=== PATIENT | male | born 1935 | race Caucasian/White ===

== ENCOUNTER 2019-07-24 17:14 | Inpatient (IN) | payer MEDICARE, OTHER ==
[2019-07-24] MEDS ORDERED: IPRATROPIUM-ALBUTEROL 3 ML NEB INHALATION STA (17:59)
--- NOTE | 2019-07-24 17:59 | ED ---
SOB HPI - General Chief Complaint: Shortness of Breath Stated Complaint: SOB Time Seen by Provider: 07/24/19 17:18 Source: patient, RN notes reviewed Mode of arrival: EMS Limitations: no limitations, altered mental status (difficulty breathing) - History of Present Illness Initial Comments: This is a 84-year-old male DF for evaluation of shortness of breath and weakness fell out of chair today hitting his head on blood thinner no significant loss of consciousness was mildly unresponsive with a low pulse ox per caregiver. EMS was called patient's brought in by EMS shortness of breath placed on BiPAP feeling better patient feels that his breathing is much improved currently no chest pain no headache no shortness of breath currently patient states he has been feeling weak for a few days of increasing shortness of breath today recent fevers nausea vomiting or diarrhea MD Complaint: shortness of breath -: days(s) Radiation: other (Patient also had fall today) Severity: moderate Severity scale (1-10): 4 Quality: dull (AB mild headache) Consistency: constant Improves With: oxygen, rest Worsens With: exertion Known History Of: congestive heart failure Context: recent URI, other (Patient had recent fall secondary to weakness) Associated Symptoms: denies other symptoms - Related Data Home Medications Medication Instructions Recorded Confirmed Amiodarone [Cordarone] 200 mg PO DAILY 01/16/16 01/16/16 Ezetimibe [Zetia] 10 mg PO DAILY 01/16/16 01/16/16 Fenofibrate,Micronized 134 mg PO AC-BRKFST 01/16/16 01/16/16 [Fenofibrate] Finasteride [Proscar] 5 mg PO DAILY 01/16/16 01/16/16 Furosemide [Lasix] 40 mg PO BID 01/16/16 01/16/16 Levothyroxine Sodium [Synthroid] 125 mcg PO QAM 01/16/16 01/16/16 Losartan [Cozaar] 25 mg PO DAILY 01/16/16 01/16/16 Metoprolol Succinate (ER) [Toprol 25 mg PO DAILY 01/16/16 01/16/16 XL] Omeprazole 20 mg PO QAM 01/16/16 01/16/16 Potassium Chloride ER [K-Dur 10] 10 meq PO DAILY 01/16/16 01/16/16 Tretinoin 0.025% Gel 1 applic TOPICAL HS 01/16/16 01/16/16 Warfarin [Coumadin] 3 mg PO SUTUWETHSA 01/16/16 01/16/16 amLODIPine/ATORVASTATIN 1 tab PO DAILY 01/16/16 01/16/16 [amLODIPine/ATORVASTATIN 10-10 MG] Previous Rx's Medication Instructions Recorded Ciprofloxacin-Dexameth [Ciprodex 4 drops LEFT EAR QID ml 01/20/16 Otic Susp] Ofloxacin 0.3% Ophth Soln [Ocuflox 5 - 7 drops LEFT EAR BID #10 bottle 01/20/16 Ophth Soln] Piperacillin-Tazobactam [Zosyn] 3.375 gm IVPB Q6H #56 bag 01/20/16 HYDROcodone/APAP 5-325MG [Alna 1 each PO Q4HR PRN #30 tab 01/21/16 5-325] Allergies Allergy/AdvReac Type Severity Reaction Status Date / Time morphine Allergy Nausea & Verified 07/24/19 17:21 Vomiting Review of Systems ROS Statement: Those systems with pertinent positive or pertinent negative responses have been documented in the HPI. ROS Other: All systems not noted in ROS Statement are negative. 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 Past Anesthesia/Blood Transfusion Reactions: No Reported Reaction Type of Cardiac Device: Permanent Pacemaker, AICD Device Placement Date:: 09/28/11 Past Psychological History: No Psychological Hx Reported Smoking Status: Former smoker Past Alcohol Use History: Rare Past Drug Use History: None Reported - Past Family History Mother Family Medical History: Cancer Additional Family Medical History / Comment(s): Mother had leukemia. She at the age of 80 yrs. Father Family Medical History: Osteoarthritis (OA) Additional Family Medical History / Comment(s): Father had severe arthritis. He in his late 70's General Exam Limitations: no limitations, altered mental status General appearance: alert, in no apparent distress, anxious, in distress Head exam: Present: atraumatic, normocephalic, normal inspection Eye exam: Present: normal appearance, PERRL, EOMI. Absent: scleral icterus, conjunctival injection, periorbital swelling ENT exam: Present: normal exam, mucous membranes moist Neck exam: Present: normal inspection. Absent: tenderness, meningismus, lymphadenopathy Respiratory exam: Present: normal lung sounds bilaterally. Absent: respiratory distress, wheezes, rales, rhonchi, stridor Cardiovascular Exam: Present: regular rate, normal rhythm, normal heart sounds. Absent: systolic murmur, diastolic murmur, rubs, gallop, clicks GI/Abdominal exam: Present: soft, normal bowel sounds. Absent: distended, tenderness, guarding, rebound, rigid Extremities exam: Present: normal inspection, full ROM, normal capillary refill. Absent: tenderness, pedal edema, joint swelling, calf tenderness Back exam: Present: normal inspection Neurological exam: Present: alert, oriented X3, CN II-XII intact Psychiatric exam: Present: normal affect, normal mood Skin exam: Present: warm, dry, intact, normal color. Absent: rash Course Vital Signs 07/24/19 07/24/19 07/24/19 17:17 18:00 18:32 Temperature 100.2 F H Pulse Rate 54 L 53 L Respiratory 29 H 25 H Rate Blood Pressure 116/57 106/54 O2 Sat by Pulse 99 100 91 L Oximetry 07/24/19 07/24/19 18:44 18:50 Temperature Pulse Rate 52 L 49 L Respiratory 18 18 Rate Blood Pressure O2 Sat by Pulse Oximetry - Reevaluation(s) Reevaluation #1: 07/24/19 18:10 Medical records reviewed Reevaluation #2: 07/24/19 19:42 Patient is improving continues to improve on BiPAP Reevaluation #3: 07/24/19 19:42 Patient has adequate pain control breathing better, no chest pain - Consultations Consultation #1: Spoke with EMS were agreeable for admission Medical Decision Making - Lab Data Result diagrams: 07/24/19 17:35 07/24/19 17:35 Lab Results 07/24/19 07/24/19 07/24/19 Range/Units 17:35 17:35 17:35 WBC 9.5 (3.8-10.6) k/uL RBC 3.35 L (4.30-5.90) m/uL Hgb 11.4 L (13.0-17.5) gm/dL Hct 36.9 L (39.0-53.0) % MCV 110.1 H (80.0-100.0) fL MCH 34.0 (25.0-35.0) pg MCHC 30.8 L (31.0-37.0) g/dL RDW 13.4 (11.5-15.5) % Plt Count 199 (150-450) k/uL Neutrophils % 90 % Lymphocytes % 5 % Monocytes % 3 % Eosinophils % 0 % Basophils % 0 % Neutrophils # 8.5 H (1.3-7.7) k/uL Lymphocytes # 0.5 L (1.0-4.8) k/uL Monocytes # 0.3 (0-1.0) k/uL Eosinophils # 0.0 (0-0.7) k/uL Basophils # 0.0 (0-0.2) k/uL Macrocytosis Marked A PT (9.0-12.0) sec INR (<1.2) APTT (22.0-30.0) sec Sodium 140 (137-145) mmol/L Potassium 4.4 (3.5-5.1) mmol/L Chloride 107 (98-107) mmol/L Carbon Dioxide 15 L (22-30) mmol/L Anion Gap 18 mmol/L BUN 37 H (9-20) mg/dL Creatinine 3.23 H (0.66-1.25) mg/dL Est GFR (CKD-EPI)AfAm 19 (>60 ml/min/1.73 sqM) Est GFR (CKD-EPI)NonAf 17 (>60 ml/min/1.73 sqM) Glucose 162 H (74-99) mg/dL Plasma Lactic Acid Ibrahima 3.3 H* (0.7-2.0) mmol/L Calcium 9.3 (8.4-10.2) mg/dL Magnesium 2.2 (1.6-2.3) mg/dL Total Bilirubin 0.9 (0.2-1.3) mg/dL AST 409 H (17-59) U/L ALT 203 H (4-49) U/L Alkaline Phosphatase 125 (38-126) U/L NT-Pro-B Natriuret Pep pg/mL Total Protein 7.4 (6.3-8.2) g/dL Albumin 4.4 (3.5-5.0) g/dL 07/24/19 07/24/19 Range/Units 17:35 17:35 WBC (3.8-10.6) k/uL RBC (4.30-5.90) m/uL Hgb (13.0-17.5) gm/dL Hct (39.0-53.0) % MCV (80.0-100.0) fL MCH (25.0-35.0) pg MCHC (31.0-37.0) g/dL RDW (11.5-15.5) % Plt Count (150-450) k/uL Neutrophils % % Lymphocytes % % Monocytes % % Eosinophils % % Basophils % % Neutrophils # (1.3-7.7) k/uL Lymphocytes # (1.0-4.8) k/uL Monocytes # (0-1.0) k/uL Eosinophils # (0-0.7) k/uL Basophils # (0-0.2) k/uL Macrocytosis PT 14.2 H (9.0-12.0) sec INR 1.4 H (<1.2) APTT 29.0 (22.0-30.0) sec Sodium (137-145) mmol/L Potassium (3.5-5.1) mmol/L Chloride (98-107) mmol/L Carbon Dioxide (22-30) mmol/L Anion Gap mmol/L BUN (9-20) mg/dL Creatinine (0.66-1.25) mg/dL Est GFR (CKD-EPI)AfAm (>60 ml/min/1.73 sqM) Est GFR (CKD-EPI)NonAf (>60 ml/min/1.73 sqM) Glucose (74-99) mg/dL Plasma Lactic Acid Ibrahima (0.7-2.0) mmol/L Calcium (8.4-10.2) mg/dL Magnesium (1.6-2.3) mg/dL Total Bilirubin (0.2-1.3) mg/dL AST (17-59) U/L ALT (4-49) U/L Alkaline Phosphatase (38-126) U/L NT-Pro-B Natriuret Pep 9890 pg/mL Total Protein (6.3-8.2) g/dL Albumin (3.5-5.0) g/dL - EKG Data -: EKG Interpreted by Me (EKG shows widened QRS to 53, QRS 160, QTc 525) Critical Care Time Critical Care Time: Yes Total Critical Care Time: 31 Disposition Clinical Impression: Congestive heart failure, Community acquired pneumonia, Acute exacerbation of chronic obstructive pulmonary disease, ARF (acute renal failure) Disposition: ADMITTED IP TO THIS HOSP Condition: Fair Is patient prescribed a controlled substance at d/c from ED?: No Referrals: Aston Grey MD [Primary Care Provider] - 1-2 days
[2019-07-24 18:28] LABS: Basophils % (A) 0 %; Eosinophils % (A) 0 %; HCT 36.9 % (39.0-53.0); HGB 11.4 gm/dL (13.0-17.5); Lymphocytes # (A) 0.5 k/uL (1.0-4.8); Lymphocytes % (A) 5 %; MCHC 30.8 g/dL (31.0-37.0); MCV 110.1 fL (80.0-100.0); Macrocytosis Marked; Mean Platelet Volume 8.9; Monocytes # (A) 0.3 k/uL (0-1.0); Monocytes % (A) 3 %; Neutrophils # (A) 8.5 k/uL (1.3-7.7); Neutrophils % (A) 90 %; Platelet Count 199 k/uL (150-450); RBC 3.35 m/uL (4.30-5.90); RDW 13.4 % (11.5-15.5); WBC 9.5 k/uL (3.8-10.6)
--- NOTE | 2019-07-24 18:32 | CT ---
EXAMINATION TYPE: CT brain rosie bhatt con DATE OF EXAM: 07/24/2019 COMPARISON: None HISTORY: Fall with head injury CT DLP: 1420.1 mGycm Automated exposure control for dose reduction was used. Multiple axial sections were obtained of the brain without contrast. Multiple axial sections were obt ained from the skull base to T1 vertebra without contrast. FINDINGS: There is cerebral cortical atrophy. There is no mass effect nor midline shift. There is no sign of in tracranial hemorrhage. The calvarium is intact. There is no evidence of cortical infarct. There is straightening of the cervical spine. There is degenerative disc space narrowing from C3 to T 1 with spurring of the endplates. There is multilevel hypertrophic cervical facet arthropathy. The sk ull base is intact. IMPRESSION: Multilevel spondylotic changes in the cervical spine. No fracture. Cerebral atrophy. No acute intracranial abnormality.
--- NOTE | 2019-07-24 18:34 | XR ---
EXAMINATION TYPE: XR chest 2V DATE OF EXAM: 07/24/2019 COMPARISON: NONE HISTORY: Difficulty breathing TECHNIQUE: 3 views FINDINGS: Heart is enlarged. There is no heart failure. There is coarsening of the lung markings. The re is mild congestion. There is blunting of costophrenic angles more on the right side. There is prob ably some infiltrate in the left lower lobe. IMPRESSION: Infiltrate and atelectasis left lower lobe. Moderate cardiomegaly. No overt heart failure but there is some pulmonary congestion. Small pleural effusions.
[2019-07-24 18:36] LABS: INR 1.4 (<1.2); Prothrombin Time 14.2 sec (9.0-12.0)
[2019-07-24 18:42] LABS: Albumin 4.4 g/dL (3.5-5.0); Calcium 9.3 mg/dL (8.4-10.2); Magnesium 2.2 mg/dL (1.6-2.3); Potassium 4.4 mmol/L (3.5-5.1); Total Bilirubin 0.9 mg/dL (0.2-1.3); Total Protein 7.4 g/dL (6.3-8.2)
[2019-07-24] MEDS ORDERED: PIPERACILLIN-TAZOBACTAM 3.375 GM in SODIUM CHLORIDE 0.9% 100 ML IVPB STA (19:40)
[2019-07-24] MEDS ORDERED: PNEUMONIA PROTOCOL UTILIZED 1 EACH MISC PO PRN (19:40)
[2019-07-24] MEDS ORDERED: LEVOFLOXACIN 750MG-D5W PMX 750 MG in DEXTROSE/WATER 1 150ML.BAG IVPB STA (19:40)
[2019-07-24] MEDS ORDERED: SODIUM CHLORIDE 0.9% 500 ML 500 ML IV ONE (20:47)
[2019-07-24 21:07] LABS: Glucose,Whole Blood 136 mg/dL (75-99)
[2019-07-25] MEDS: PIPERACILLIN-TAZOBACTAM 3.375 GM in SODIUM CHLORIDE 0.9% 100 ML IVPB SCH ×3 (04:06→21:41)
[2019-07-25 05:18] LABS: Basophils % (A) 0 %; Eosinophils % (A) 0 %; HCT 30.5 % (39.0-53.0); Lymphocytes % (A) 16 %; MCHC 31.6 g/dL (31.0-37.0); Macrocytosis Marked; Mean Platelet Volume 9.1; Monocytes # (A) 0.3 k/uL (0-1.0); Monocytes % (A) 5 %; Neutrophils # (A) 4.9 k/uL (1.3-7.7); Neutrophils % (A) 78 %; Platelet Count 158 k/uL (150-450); RBC 2.75 m/uL (4.30-5.90); RDW 13.6 % (11.5-15.5); WBC 6.2 k/uL (3.8-10.6)
[2019-07-25 05:21] LABS: HGB 9.6 gm/dL (13.0-17.5); MCV 110.7 fL (80.0-100.0)
[2019-07-25 05:27] LABS: Calcium 7.9 mg/dL (8.4-10.2); Potassium 3.8 mmol/L (3.5-5.1)
--- NOTE | 2019-07-25 06:35 | XR ---
EXAMINATION TYPE: XR chest 1V DATE OF EXAM: 07/25/2019 HISTORY: pneumonia. REFERENCE: Previous study dated 07/24/2019. FINDINGS: A multilead pacing device projects over the left chest. The heart is enlarged. There is mild vascular congestion and subtle interstitial change. There is air space disease the left lung base which may represent atelectasis, pneumonia or confluent edema. There are small, bilateral effusions, greater on the left than the right. IMPRESSION: CONTINUING LEFT BASILAR AIRSPACE DISEASE. THERE IS NOW SUPERIMPOSED CONGESTIVE HEART FAILURE.
[2019-07-25 07:09] LABS: Glucose,Whole Blood 108 mg/dL (75-99)
--- NOTE | 2019-07-25 08:05 | P.CRDCN ---
History of Present Illness Consult date: 07/25/19 Chief complaint: Weakness History of present illness: This is a very pleasant 84-year-old gentleman with a past medical history significant for long-standing persistent atrial fibrillation, for some reasons, the patient is not on oral anticoagulation, peripheral vascular disease, hypertension, and dyslipidemia, and also chronic kidney disease, presented to the emergency room complaining of weakness associated with shortness of breath. The patient somewhat is a poor historian. He stated that he does have a baseline shortness of breath with exertion but yesterday shortness of breath was increasing and he was at home when he felt weak and fell out of his chair. He clearly stated that he did not lose his consciousness. Does not recall having any symptoms of dizziness or lightheadedness, heart racing or fluttering, or any symptoms of chest pain or chest discomfort. The patient was found to be positive for flu. Currently he is on isolation. The blood pressure has been marginal. The EKG showed underlying atrial fibrillation with wide complex QRS. The troponin with first set came in to be slightly abnormal. The chest x-ray sh owed small bilateral pleural effusion. The BNP came in to be elevated at 7000. The patient clearly stated that he did not have any symptoms of chest pain or chest discomfort. Please note that the patient does have chronic kidney disease but his creatinine today is worse. Otherwise the patient denies having any abdominal pain or abdominal discomfort, fever, nausea or vomiting. 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 Past Anesthesia/Blood Transfusion Reactions: No Reported Reaction Type of Cardiac Device: Permanent Pacemaker, AICD Device Placement Date:: 09/28/11 Past Psychological History: No Psychological Hx Reported Smoking Status: Former smoker Past Alcohol Use History: Rare Past Drug Use History: None Reported - Past Family History Mother Family Medical History: Cancer Additional Family Medical History / Comment(s): Mother had leukemia. She at the age of 80 yrs. Father Family Medical History: Osteoarthritis (OA) Additional Family Medical History / Comment(s): Father had severe arthritis. He in his late 70's Medications and Allergies Home Medications Medication Instructions Recorded Confirmed Type Amiodarone [Cordarone] 200 mg PO DAILY 01/16/16 07/24/19 History Ezetimibe [Zetia] 10 mg PO HS 01/16/16 07/24/19 History Finasteride [Proscar] 5 mg PO DAILY@1200 01/16/16 07/24/19 History Furosemide [Lasix] 60 mg PO DAILY 01/16/16 07/24/19 History Levothyroxine Sodium [Synthroid] 125 mcg PO MOTUWETHFRSA 01/16/16 07/24/19 History Losartan [Cozaar] 25 mg PO BID 01/16/16 07/24/19 History Metoprolol Succinate (ER) [Toprol 25 mg PO BID@0900,1700 01/16/16 07/24/19 History XL] Potassium Chloride ER [K-Dur 10] 10 meq PO DAILY@1200 01/16/16 07/24/19 History Ascorbic Acid [Vitamin C] 1,000 mg PO DAILY@1200 07/24/19 07/24/19 History Atorvastatin [Lipitor] 20 mg PO DAILY@119907/24/19 07/24/19 History Black Reyes 1 cap PO BID@1200,2100 07/24/19 07/24/19 History Ergocalciferol [Vitamin D2] 50,000 unit PO SUWE 07/24/19 07/24/19 History Focus 1 tab PO BID 07/24/19 07/24/19 History Glimepiride [Amaryl] 0.5 mg PO AC-BRKFST 07/24/19 07/24/19 History Glucosam/George-Msm1/C/Roe/Bosw 1 tab PO BID@1200,2100 07/24/19 07/24/19 History [Glucosamine-Chondroitin Tablet] Levothyroxine Sodium [Synthroid] 62.5 mcg PO ARREDONDO 07/24/19 07/24/19 History Oil Of Oregano 1 cap PO W/SUPPER 07/24/19 07/24/19 History [place]-3 Fatty Acids [[place]-3] 1,000 mg PO W/SUPPER 07/24/19 07/24/19 History Turmeric Root Extract [Turmeric] 500 mg PO W/SUPPER 07/24/19 07/24/19 History Ubidecarenone [Co Q-10] 100 mg PO W/SUPPER 07/24/19 07/24/19 History Vitamin B Complex 1 cap PO W/SUPPER 07/24/19 07/24/19 History amLODIPine [Norvasc] 10 mg PO DAILY 07/24/19 07/24/19 History Allergies Allergy/AdvReac Type Severity Reaction Status Date / Time morphine Allergy Nausea & Verified 07/24/19 20:56 Vomiting Physical Exam Vitals: Vital Signs Temp Pulse Pulse Resp BP BP Pulse Ox 07/25/19 04:00 98.9 F 50 L 18 100/55 96 07/25/19 00:00 99.0 F 48 L 18 96/53 96 07/24/19 21:27 94 L 07/24/19 20:33 99.8 F H 52 L 18 112/60 92 L 07/24/19 20:00 99.4 F 54 L 18 104/54 93 L 07/24/19 19:20 99.2 F 52 L 20 136/67 93 L 07/24/19 18:50 49 L 18 07/24/19 18:44 52 L 18 07/24/19 18:32 91 L 07/24/19 18:00 53 L 25 H 106/54 100 07/24/19 17:17 100.2 F H 54 L 29 H 116/57 99 Intake and Output 07/24/19 07/25/19 07/25/19 22:59 06:59 14:59 Intake Total 500 Output Total 500 Balance 500 -500 Intake: Intake, IV Titration 500 Amount Sodium Chloride 0.9% 500 500 ml 500 ml @ 999 mls/hr IV .Q31M ONE Rx#:[id number] Output: Urine 500 Other: Weight 93.5 kg 93.5 kg - Constitutional General appearance: no acute distress - Respiratory Respiratory: bilateral: diminished - Cardiovascular Rhythm: irregularly irregular Heart sounds: normal: S1, S2 Results 07/25/19 04:54 07/25/19 04:54 Cardiac Enzymes 07/24/19 07/24/19 Range/Units 17:35 17:35 AST 409 H (17-59) U/L Troponin I 0.096 H* (0.000-0.034) ng/mL Coagulation 07/24/19 Range/Units 17:35 PT 14.2 H (9.0-12.0) sec APTT 29.0 (22.0-30.0) sec CBC 07/24/19 07/25/19 Range/Units 17:35 04:54 WBC 9.5 6.2 (3.8-10.6) k/uL RBC 3.35 L 2.75 L (4.30-5.90) m/uL Hgb 11.4 L 9.6 L D (13.0-17.5) gm/dL Hct 36.9 L 30.5 L (39.0-53.0) % Plt Count 199 158 (150-450) k/uL Comprehensive Metabolic Panel 07/24/19 07/25/19 Range/Units 17:35 04:54 Sodium 140 139 (137-145) mmol/L Potassium 4.4 3.8 (3.5-5.1) mmol/L Chloride 107 113 H (98-107) mmol/L Carbon Dioxide 15 L 18 L (22-30) mmol/L BUN 37 H 38 H (9-20) mg/dL Creatinine 3.23 H 2.91 H (0.66-1.25) mg/dL Glucose 162 H 69 L (74-99) mg/dL Calcium 9.3 7.9 L (8.4-10.2) mg/dL AST 409 H (17-59) U/L ALT 203 H (4-49) U/L Alkaline Phosphatase 125 (38-126) U/L Total Protein 7.4 (6.3-8.2) g/dL Albumin 4.4 (3.5-5.0) g/dL Current Medications Generic Name Dose Route Start Last Admin Trade Name Freq PRN Reason Stop Dose Admin Albuterol/Ipratropium 3 ml 02/22/20 08:00 Duoneb 0.5 Mg-3 Mg/3 Ml Soln INHALATION RT-QID HAL Levofloxacin 750 mg/ IV 150 mls @ 100 mls/hr 07/25/19 20:00 Solution IVPB 08/06/19 20:01 Q24H HAL Piperacillin Sod/Tazobactam 100 mls @ 25 mls/hr 07/25/19 04:00 07/25/19 04:06 Sod 3.375 gm/ Sodium Chloride IVPB 25 mls/hr Q8H HAL Administration Miscellaneous Information 1 each 07/24/19 19:40 Pneumonia Protocol Utilized PO ONCE PRN Per Protocol Intake and Output 07/24/19 07/25/19 07/25/19 22:59 06:59 14:59 Intake Total 500 Output Total 500 Balance 500 -500 Intake: Intake, IV Titration 500 Amount Sodium Chloride 0.9% 500 500 ml 500 ml @ 999 mls/hr IV .Q31M ONE Rx#:[id number] Output: Urine 500 Other: Weight 93.5 kg 93.5 kg 07/25/19 04:54 07/25/19 04:54 Assessment and Plan Assessment: Assessment #1 generalized weakness and fatigue #2 shortness of breath likely to be multifactorial #3 flulike symptoms #4 long-standing persistent atrial fibrillation was controlled heart rate #5 margin the low blood pressure #6 acute on chronic renal failure Plan #1 the patient doesn't seems to be in overt congestive heart failure clinically #2 hold any diuretics at this point, in view of the margin the low blood pressure as well as acute on chronic renal failure #3 obtain an echocardiogram was Doppler #4 follow-up on the serial cardiac enzymes #6 follow-up with the patient Thank you for allowing us participate in his care
[2019-07-25] MEDS: IPRATROPIUM-ALBUTEROL 3 ML NEB INHALATION SCH ×4 (09:07→20:38)
--- NOTE | 2019-07-25 09:54 | P.CNPUL ---
History of Present Illness Consult date: 07/25/19 Reason for consult: dyspnea History of present illness: This is an 84-year-old male patient who came into the ED with shortness of breath. Actually he was feeling weak and he fell out of his chair hitting his head. He did not lose any consciousness. He was mildly unresponsive with a low pulse oximeter based on the caregiver. The patient was found by EMS and he was quite short of breath and was placed on a BiPAP and following that he was brought into the ED. He felt better while on the BiPAP. He admitted to be quite weak for the past few weeks noted getting progressively more short of breath and he was having recent fevers along without nausea vomiting and diarrhea. He is currently on BiPAP at a pressure of 12/6 with an FiO2 of 50%. The initial workup that was done in the ED showed a white cell count of 9.5 with a hemoglobin of 11.4. The white cell count today is down to 6.2. He also had an acute on top of chronic kidney injury. His creatinine at baseline from 2016 was 1.5 inch was up to 3.23 and is obviously improving and today's value is down to 2.9. His lactic acid level was at 3.3 at time of admission is currently not 0.4. He had a troponin leak with level of 0.09 and 0.195 respectively 2. His proBNP level was 9819. He checked positive for influenza A. His hemoglobin dropped from 11.4 down to 9.6. The patient was given a bolus of 500 mL in the emergency department. Currently is on KVO. Chest x-ray showed cardiomegaly and mild vascular congestion. There could be some airspace disease in the left lung base reflecting pneumonia versus atelectasis. Small bilateral pleural effusion is present. The patient also has a pacemaker over the left anterior chest area. CAT scan of the head and cervical spine was done in the ED and it showed multilevel spondylotic changes in the cervical spine without any fracture. There was cerebral atrophy without any acute abnormalities noted. His cardiac rhythm currently is paced In terms of his cardiac history, the patient is known to have long history of a trial fibrillation. He has not been on anticoagulation and the exact reason for that is not known. He has peripheral vascular disease along with hypertension and hyperlipidemia and chronic kidney disease as mentioned. He has also coronary artery disease and he is diabetic and has obstructive sleep apnea and remote history of bladder cancer that was in 1992 that was treated locally by resection. 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 Currently has a pacer/AICD in place. He also has a previous history of left ear mastoiditis and chronic suppurative otitis media of the left ear underwent tympanoplasty and tube placement. Review of Systems Constitutional: Reports weakness Eyes: bilateral decreased vision, denies blurred vision, denies bulging eye Ears: left: decreased hearing, ear discharge, deny: earache, tinnitus Ears, nose, mouth and throat: Denies headache, Denies sore throat Breasts: absent: as per HPI, gynecomastia Cardiovascular: Reports claudication, Reports decreased exercise tolerance, Reports dyspnea on exertion, Reports paroxysmal nocturnal dyspnea, Reports shortness of breath Respiratory: Reports dyspnea Gastrointestinal: Reports as per HPI Musculoskeletal: Reports as per HPI Musculoskeletal: absent: ankle pain, ankle stiffness, ankle swelling Integumentary: Reports as per HPI Neurological: Reports as per HPI, Reports weakness Psychiatric: Reports as per HPI Endocrine: Reports as per HPI, Reports fatigue Hematologic/Lymphatic: Reports as per HPI Allergic/Immunologic: Reports as per HPI Past Medical History Past Medical History: Atrial Fibrillation, Coronary Artery Disease (CAD), Cancer, Diabetes Mellitus, Eye Disorder, Hyperlipidemia, Hypertension, Neurologic Disorder, Osteoarthritis (OA), Sleep Apnea/CPAP/BIPAP, Thyroid Disorder, Vascular Disorder Additional Past Medical History / Comment(s): 1992 bladder cancer with c auterization, ERICK with CPAP, bilateral varicosities with L leg worse, PVD, balance issues, low back pain, arthritis to back and knees bilaterally, Medina's palsy-R sided facial droop if tired, macular degeneration bilaterally, hypothyroid, History of Any Multi-Drug Resistant Organisms: None Reported Past Surgical History: AICD, Appendectomy, Cholecystectomy, Pacemaker Additional Past Surgical History / Comment(s): AICD/Pacer, 3 L ear myringotomies and tubes, sinus surgery, cardiac caths-no balooning or stenting, EGD/colon oscopy, bilateral cataracts with lenses, bladder cautery for CA. Past Anesthesia/Blood Transfusion Reactions: No Reported Reaction Type of Cardiac Device: Permanent Pacemaker, AICD Device Placement Date:: 09/28/11 Past Psychological History: No Psychological Hx Reported Smoking Status: Former smoker Past Alcohol Use History: Rare Past Drug Use History: None Reported - Past Family History Mother Family Medical History: Cancer Additional Family Medical History / Comment(s): Mother had leukemia. She at the age of 80 yrs. Father Family Medical History: Osteoarthritis (OA) Additional Family Medical History / Comment(s): Father had severe arthritis. He in his late 70's Medications and Allergies Home Medications Medication Instructions Recorded Confirmed Type Amiodarone [Cordarone] 200 mg PO DAILY 01/16/16 07/24/19 History Ezetimibe [Zetia] 10 mg PO HS 01/16/16 07/24/19 History Finasteride [Proscar] 5 mg PO DAILY@1200 01/16/16 07/24/19 History Furosemide [Lasix] 60 mg PO DAILY 01/16/16 07/24/19 History Levothyroxine Sodium [Synthroid] 125 mcg PO MOTUWETHFRSA 01/16/16 07/24/19 History Losartan [Cozaar] 25 mg PO BID 01/16/16 07/24/19 History Metoprolol Succinate (ER) [Toprol 25 mg PO BID@0900,1700 01/16/16 07/24/19 History XL] Potassium Chloride ER [K-Dur 10] 10 meq PO DAILY@1200 01/16/16 07/24/19 History Ascorbic Acid [Vitamin C] 1,000 mg PO DAILY@1200 07/24/19 07/24/19 History Atorvastatin [Lipitor] 20 mg PO DAILY@1200 07/24/19 07/24/19 History Black Reyes 1 cap PO BID@1200,2100 07/24/19 07/24/19 History Ergocalciferol [Vitamin D2] 50,000 unit PO SUWE 07/24/19 07/24/19 History Focus 1 tab PO BID 07/24/19 07/24/19 History Glimepiride [Amaryl] 0.5 mg PO AC-BRKFST 07/24/19 07/24/19 History Glucosam/George-Msm1/C/Roe/Bosw 1 tab PO BID@1200,2100 07/24/19 07/24/19 History [Glucosamine-Chondroitin Tablet] Levothyroxine Sodium [Synthroid] 62.5 mcg PO ARREDONDO 07/24/19 07/24/19 History Oil Of Oregano 1 cap PO W/SUPPER 07/24/19 07/24/19 History [place]-3 Fatty Acids [[place]-3] 1,000 mg PO W/SUPPER 07/24/19 07/24/19 History Turmeric Root Extract [Turmeric] 500 mg PO W/SUPPER 07/24/19 07/24/19 History Ubidecarenone [Co Q-10] 100 mg PO W/SUPPER 07/24/19 07/24/19 History Vitamin B Complex 1 cap PO W/SUPPER 07/24/19 07/24/19 History amLODIPine [Norvasc] 10 mg PO DAILY 07/24/19 07/24/19 History Allergies Allergy/AdvReac Type Severity Reaction Status Date / Time morphine Allergy Nausea & Verified 07/24/19 20:56 Vomiting Physical Exam Vitals: Vital Signs Temp Pulse Pulse Resp BP BP Pulse Ox 07/25/19 09:21 49 L 07/25/19 09:07 49 L 07/25/19 04:00 98.9 F 50 L 18 100/55 96 07/25/19 00:00 99.0 F 48 L 18 96/53 96 07/24/19 21:27 94 L 07/24/19 20:33 99.8 F H 52 L 18 112/60 92 L 07/24/19 20:00 99.4 F 54 L 18 104/54 93 L 07/24/19 19:20 99.2 F 52 L 20 136/67 93 L 07/24/19 18:50 49 L 18 07/24/19 18:44 52 L 18 07/24/19 18:32 91 L 07/24/19 18:00 53 L 25 H 106/54 100 07/24/19 17:17 100.2 F H 54 L 29 H 116/57 99 Intake and Output 07/24/19 07/25/19 07/25/19 22:59 06:59 14:59 Intake Total 500 Output Total 500 Balance 500 -500 Intake: Intake, IV Titration 500 Amount Sodium Chloride 0.9% 500 500 ml 500 ml @ 999 mls/hr IV .Q31M ONE Rx#:[id number] Output: Urine 500 Other: Weight 93.5 kg 93.5 kg Gen. appearance, comfortable and interactive and following commands and answering questions currently on BiPAP Head exam was generally normal. There was no scleral icterus or corneal arcus. Mucous membranes were moist. Neck was supple and without jugular venous distension, thyromegaly, or carotid bruits. Carotids were easily palpable bilaterally. There was no adenopathy. Lungs sounds are diminished bilaterally along with some few crackles in lung bases and scattered expiratory wheezes Heart sounds are distant, positive S1-S2, irregular, paced with a pacemaker pocket seen over the left anterior chest area. Sternum stable clean and intact. No use of accessory muscles of breathing at this point in time. No significant murmurs appreciated. Abdominal exam revealed normal bowel sounds. The abdomen was soft, non-tender, and without masses, organomegaly, or appreciable enlargement of the abdominal aorta. Examination of the extremities revealed easily palpable radial, femoral and pedal pulses. There was no cyanosis, clubbing or edema. Examination of the skin revealed no evidence of significant rashes, suspicious appearing nevi or other concerning lesions. Neurologically awake and alert and is no focal neurological deficits. Results - Laboratory Findings CBC and BMP: 07/25/19 04:54 07/25/19 04:54 PT/INR, D-dimer PT 14.2 sec (9.0-12.0) H 07/24/19 17:35 INR 1.4 (<1.2) H 07/24/19 17:35 Abnormal lab findings: Abnormal Labs 07/24/19 07/24/19 07/24/19 17:35 17:35 17:35 RBC 3.35 L Hgb 11.4 L Hct 36.9 L MCV 110.1 H MCHC 30.8 L Neutrophils # 8.5 H Lymphocytes # 0.5 L Macrocytosis Marked A PT INR Chloride Carbon Dioxide 15 L BUN 37 H Creatinine 3.23 H Glucose 162 H POC Glucose (mg/dL) Plasma Lactic Acid Ibrahima 3.3 H* Calcium AST 409 H ALT 203 H Troponin I Influenza Type A RNA 07/24/19 07/24/19 07/24/19 17:35 17:35 17:46 RBC Hgb Hct MCV MCHC Neutrophils # Lymphocytes # Macrocytosis PT 14.2 H INR 1.4 H Chloride Carbon Dioxide BUN Creatinine Glucose POC Glucose (mg/dL) Plasma Lactic Acid Ibrahima Calcium AST ALT Troponin I 0.096 H* Influenza Type A RNA Detected H 07/24/19 07/25/1907/25/20 21:05 04:54 04:54 RBC 2.75 L Hgb 9.6 L D Hct 30.5 L MCV 110.7 H MCHC Neutrophils # Lymphocytes # Macrocytosis Marked A PT INR Chloride 113 H Carbon Dioxide 18 L BUN 38 H Creatinine 2.91 H Glucose 69 L POC Glucose (mg/dL) 136 H Plasma Lactic Acid Ibrahima Calcium 7.9 L AST ALT Troponin I Influenza Type A RNA 07/25/19 07/25/19 04:54 07:07 RBC Hgb Hct MCV MCHC Neutrophils # Lymphocytes # Macrocytosis PT INR Chloride Carbon Dioxide BUN Creatinine Glucose POC Glucose (mg/dL) 108 H Plasma Lactic Acid Ibrahima Calcium AST ALT Troponin I 0.195 H* Influenza Type A RNA - Diagnostic Findings Chest x-ray: image reviewed Assessment and Plan Plan: 1 acute influenza a pulmonary infection/influenza syndrome with generalized weakness and shortness of breath and no extra pulmonary manifestations 2 acute hypoxic respiratory failure secondary to above in addition to a componen t of CHF exacerbation. The possibility of left lower lobe pneumonia cannot be completely excluded. Currently the patient on a BiPAP at a pressure of 12/5 cm of water with an FiO2 of 50% 3 acute lactic acidosis, improving 4 acute on chronic kidney injury. The patient has baseline chronic stage III kidney failure and the creatinine is improving and started on to 2.9 5 coronary artery disease, with abnormal troponins. Consider troponin leak. The EKG showing a paced rhythm at the rate of 53. 6 peripheral vascular disease 7 obstructive sleep apnea maintained on CPAP therapy on outpatient basis. The patient currently is on a CPAP machine and I evaluated him back in November 2018 I put him on a minimum pressure of 5 and a maximum pressure of 20 with a pressure support of 3. He was quite compliant with that setting. 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 The patient has a pacer/AICD in place Plan Gentle hydration with normal saline at the rate of 50 mL an hour Monitor renal function Droplet isolation Tamiflu for influenza A IV Solu-Medrol 40 mg every 8 hours DuoNeb nebulized treatments every 6 hours and when necessary Echocardiogram Cardiology to check on the pacemaker Discontinue the BiPAP and give the patient trial of oxygen with nasal cannula Provide diet Resume outpatient medications Asked the patient to bring his BiPAP machine from home Repeat electrolytes Cardiology regarding the troponin leak We'll continue to follow
[2019-07-25] MEDS ORDERED: SODIUM CHLORIDE 0.9% 1,000 ML IV SCH (10:00)
[2019-07-25] MEDS ORDERED: OSELTAMIVIR 75 MG CAP PO SCH (10:00)
[2019-07-25] MEDS ORDERED: amLODIPine 10 MG TAB PO SCH (10:00)
[2019-07-25] MEDS: methylPREDNISolone SOD SUCCI 40 MG/ML 1 ML VIAL IV SCH ×2 (11:25→21:42)
[2019-07-25] MEDS: FUROSEMIDE 40 MG TAB PO SCH (11:26)
[2019-07-25] MEDS: POTASSIUM CHLORIDE ER 10 MEQ TAB.ER.PRT PO SCH (11:26)
[2019-07-25] MEDS: GLIMEPIRIDE 1 MG TAB PO SCH (11:26)
[2019-07-25] MEDS: LEVOTHYROXINE 125 MCG TAB PO SCH (11:27)
[2019-07-25] MEDS: AMIODARONE 200 MG TAB PO SCH (11:27)
[2019-07-25] MEDS: FINASTERIDE 5 MG TAB PO SCH (11:29)
[2019-07-25] MEDS: ATORVASTATIN 20 MG TAB PO SCH (11:29)
[2019-07-25] MEDS: ASCORBIC ACID 500 MG TAB PO SCH (11:29)
[2019-07-25] MEDS: LOSARTAN 25 MG TAB PO SCH ×2 (11:30→21:42)
[2019-07-25] MEDS: OSELTAMIVIR 60 MG/10 ML ORAL SYRINGE PO SCH (11:34)
--- NOTE | 2019-07-25 15:11 | P.HPIM ---
History of Present Illness This is a pleasant 83-year-old male with complains of shortness of breath generalized weakness and fever found to have influenza, patient denied any COPD history patient denied any history of smoking. But patient is wheezing on exam patient is presently on BiPAP admitted to ICU pulmonology and cardio evaluated the patient. Patient chest x-ray now showing pulmonary edema, there is infiltrate in the left lower lung garcia small bilateral pleural effusions. Patient had lactic is doses on admission which resolved at this time patient that it might pulmonary edema which is much worse now after IV fluids. Patient does have history of atrial fibrillation, unsure whether patient has history of congestive heart failure do not have any echocardiogram available. BNP is a 9890. Patient is rate controlled. Review of Systems REVIEW OF SYSTEMS: CONSTITUTIONAL: As mentioned in HPI HEENT: No recent visual problems or hearing problems. Denied any sore throat. CARDIOVASCULAR: As mentioned in HPI PULMONARY: no hemoptysis. GASTROINTESTINAL: No diarrhea, no nausea, no vomiting, no abdominal pain. NEUROLOGICAL: No headaches, no weakness, no numbness. HEMATOLOGICAL: Denies any bleeding or petechiae. GENITOURINARY: Denies any burning micturition, frequency, or urgency. MUSCULOSKELETAL/RHEUMATOLOGICAL: Denies any joint pain, swelling, or any muscle pain. ENDOCRINE: Denies any polyuria or polydipsia. The rest of the 14-point review of systems is negative. 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 Past Anesthesia/Blood Transfusion Reactions: No Reported Reaction Type of Cardiac Device: Permanent Pacemaker, AICD Device Placement Date:: 09/28/11 Past Psychological History: No Psychological Hx Reported Smoking Status: Former smoker Past Alcohol Use History: Rare Past Drug Use History: None Reported - Past Family History Mother Family Medical History: Cancer Additional Family Medical History / Comment(s): Mother had leukemia. She at the age of 80 yrs. Father Family Medical History: Osteoarthritis (OA) Additional Family Medical History / Comment(s): Father had severe arthritis. He in his late 70's Medications and Allergies Home Medications Medication Instructions Recorded Confirmed Type Amiodarone [Cordarone] 200 mg PO DAILY 01/16/16 07/24/19 History Ezetimibe [Zetia] 10 mg PO HS 01/16/16 07/24/19 History Finasteride [Proscar] 5 mg PO DAILY@1200 01/16/16 07/24/19 History Furosemide [Lasix] 60 mg PO DAILY 01/16/16 07/24/19 History Levothyroxine Sodium [Synthroid] 125 mcg PO MOTUWETHFRSA 01/16/16 07/24/19 History Losartan [Cozaar] 25 mg PO BID 01/16/16 07/24/19 History Metoprolol Succinate (ER) [Toprol 25 mg PO BID@0900,1700 01/16/16 07/24/19 History XL] Potassium Chloride ER [K-Dur 10] 10 meq PO DAILY@1200 01/16/16 07/24/19 History Ascorbic Acid [Vitamin C] 1,000 mg PO DAILY@1200 07/24/19 07/24/19 History Atorvastatin [Lipitor] 20 mg PO DAILY@1200 07/24/19 07/24/19 History Black Reyes 1 cap PO BID@1200,2100 07/24/19 07/24/19 History Ergocalciferol [Vitamin D2] 50,000 unit PO SUWE 07/24/19 07/24/19 History Focus 1 tab PO BID 07/24/19 07/24/19 History Glimepiride [Amaryl] 0.5 mg PO AC-BRKFST 07/24/19 07/24/19 History Glucosam/George-Msm1/C/Roe/Bosw 1 tab PO BID@1200,2100 07/24/19 07/24/19 History [Glucosamine-Chondroitin Tablet] Levothyroxine Sodium [Synthroid] 62.5 mcg PO ARREDONDO 07/24/19 07/24/19 History Oil Of Oregano 1 cap PO W/SUPPER 07/24/19 07/24/19 History [place]-3 Fatty Acids [[place]-3] 1,000 mg PO W/SUPPER 07/24/19 07/24/19 History Turmeric Root Extract [Turmeric] 500 mg PO W/SUPPER 07/24/19 07/24/19 History Ubidecarenone [Co Q-10] 100 mg PO W/SUPPER 07/24/19 07/24/19 History Vitamin B Complex 1 cap PO W/SUPPER 07/24/19 07/24/19 History amLODIPine [Norvasc] 10 mg PO DAILY 07/24/19 07/24/19 History Allergies Allergy/AdvReac Type Severity Reaction Status Date / Time morphine Allergy Nausea & Verified 07/24/19 20:56 Vomiting Physical Exam Vitals: Vital Signs Temp Pulse Pulse Pulse Resp BP BP 07/25/19 12:49 49 L 07/25/19 12:35 51 L 07/25/19 12:00 97.8 F 69 20 121/75 07/25/19 09:21 49 L 07/25/19 09:07 49 L 07/25/19 08:00 98.9 F 52 L 18 110/55 07/25/19 04:00 98.9 F 50 L 18 100/55 07/25/19 00:00 99.0 F 48 L 18 96/53 07/24/19 21:27 07/24/19 20:33 99.8 F H 52 L 18 112/60 07/24/19 20:00 99.4 F 54 L 18 104/54 07/24/19 19:20 99.2 F 52 L 20 136/67 07/24/19 18:50 49 L 18 07/24/19 18:44 52 L 18 07/24/19 18:32 07/24/19 18:00 53 L 25 H 106/54 07/24/19 17:17 100.2 F H 54 L 29 H 116/57 Pulse Ox 07/25/19 12:49 07/25/19 12:35 07/25/19 12:00 94 L 07/25/19 09:21 07/25/19 09:07 07/25/19 08:00 95 07/25/19 04:00 96 07/25/19 00:00 96 07/24/19 21:27 94 L 07/24/19 20:33 92 L 07/24/19 20:00 93 L 07/24/19 19:20 93 L 07/24/19 18:50 07/24/19 18:44 07/24/19 18:32 91 L 07/24/19 18:00 100 07/24/19 17:17 99 Intake and Output 07/24/19 07/25/19 07/25/19 22:59 06:59 14:59 Intake Total 500 350 Output Total 500 500 Balance 500 -500 -150 Intake: IV 350 .9 350 Intake, IV Titration 500 Amount Sodium Chloride 0.9% 500 500 ml 500 ml @ 999 mls/hr IV .Q31M ONE Rx#:[id number] Output: Urine 500 500 Other: Weight 93.5 kg 93.5 kg PHYSICAL EXAMINATION: GENERAL: The patient is alert and oriented x3, not in any acute distress. Well developed, well nourished. HEENT: Pupils are round and equally reacting to light. EOMI. No scleral icterus. No conjunctival pallor. Normocephalic, atraumatic. No pharyngeal erythema. No thyromegaly. CARDIOVASCULAR: S1 and S2 present. No murmurs, rubs, or gallops. PULMONARY: Diffuse bilateral wheezing previous or crackles ABDOMEN: Soft, nontender, nondistended, normoactive bowel sounds. No palpable organomegaly. MUSCULOSKELETAL: No joint swelling or deformity. EXTREMITIES: No cyanosis, clubbing, or pedal edema. NEUROLOGICAL: Gross neurological examination did not reveal any focal deficits. SKIN: No rashes. Results CBC & Chem 7: 07/25/19 04:54 07/25/19 04:54 Labs: Abnormal Lab Results - Last 24 Hours (Table) 07/24/19 07/24/19 07/24/19 Range/Units 17:35 17:35 17:35 RBC 3.35 L (4.30-5.90) m/uL Hgb 11.4 L (13.0-17.5) gm/dL Hct 36.9 L (39.0-53.0) % MCV 110.1 H (80.0-100.0) fL MCHC 30.8 L (31.0-37.0) g/dL Neutrophils # 8.5 H (1.3-7.7) k/uL Lymphocytes # 0.5 L (1.0-4.8) k/uL Macrocytosis Marked A PT (9.0-12.0) sec INR (<1.2) Chloride (98-107) mmol/L Carbon Dioxide 15 L (22-30) mmol/L BUN 37 H (9-20) mg/dL Creatinine 3.23 H (0.66-1.25) mg/dL Glucose 162 H (74-99) mg/dL POC Glucose (mg/dL) (75-99) mg/dL Plasma Lactic Acid Ibrahima 3.3 H* (0.7-2.0) mmol/L Calcium (8.4-10.2) mg/dL AST 409 H (17-59) U/L ALT 203 H (4-49) U/L Troponin I (0.000-0.034) ng/mL Influenza Type A RNA (Not Detectd) 07/24/19 07/24/19 07/24/19 Range/Units 17:35 17:35 17:46 RBC (4.30-5.90) m/uL Hgb (13.0-17.5) gm/dL Hct (39.0-53.0) % MCV (80.0-100.0) fL MCHC (31.0-37.0) g/dL Neutrophils # (1.3-7.7) k/uL Lymphocytes # (1.0-4.8) k/uL Macrocytosis PT 14.2 H (9.0-12.0) sec INR 1.4 H (<1.2) Chloride (98-107) mmol/L Carbon Dioxide (22-30) mmol/L BUN (9-20) mg/dL Creatinine (0.66-1.25) mg/dL Glucose (74-99) mg/dL POC Glucose (mg/dL) (75-99) mg/dL Plasma Lactic Acid Ibrahima (0.7-2.0) mmol/L Calcium (8.4-10.2) mg/dL AST (17-59) U/L ALT (4-49) U/L Troponin I 0.096 H* (0.000-0.034) ng/mL Influenza Type A RNA Detected H (Not Detectd) 07/24/19 07/25/19 07/25/19 Range/Units 21:05 04:54 04:54 RBC 2.75 L (4.30-5.90) m/uL Hgb 9.6 L D (13.0-17.5) gm/dL Hct 30.5 L (39.0-53.0) % MCV 110.7 H (80.0-100.0) fL MCHC (31.0-37.0) g/dL Neutrophils # (1.3-7.7) k/uL Lymphocytes # (1.0-4.8) k/uL Macrocytosis Marked A PT (9.0-12.0) sec INR (<1.2) Chloride 113 H (98-107) mmol/L Carbon Dioxide 18 L (22-30) mmol/L BUN 38 H (9-20) mg/dL Creatinine 2.91 H (0.66-1.25) mg/dL Glucose 69 L (74-99) mg/dL POC Glucose (mg/dL) 136 H (75-99) mg/dL Plasma Lactic Acid Ibrahima (0.7-2.0) mmol/L Calcium 7.9 L (8.4-10.2) mg/dL AST (17-59) U/L ALT (4-49) U/L Troponin I (0.000-0.034) ng/mL Influenza Type A RNA (Not Detectd) 07/25/19 07/25/19 Range/Units 04:54 07:07 RBC (4.30-5.90) m/uL Hgb (13.0-17.5) gm/dL Hct (39.0-53.0) % MCV (80.0-100.0) fL MCHC (31.0-37.0) g/dL Neutrophils # (1.3-7.7) k/uL Lymphocytes # (1.0-4.8) k/uL Macrocytosis PT (9.0-12.0) sec INR (<1.2) Chloride (98-107) mmol/L Carbon Dioxide (22-30) mmol/L BUN (9-20) mg/dL Creatinine (0.66-1.25) mg/dL Glucose (74-99) mg/dL POC Glucose (mg/dL) 108 H (75-99) mg/dL Plasma Lactic Acid Ibrahima (0.7-2.0) mmol/L Calcium (8.4-10.2) mg/dL AST (17-59) U/L ALT (4-49) U/L Troponin I 0.195 H* (0.000-0.034) ng/mL Influenza Type A RNA (Not Detectd) Assessment and Plan Plan: -Acute hypoxic and possible hypercapnic respiratory failure acute influenza patient may have bronchospasm severe from influenza is receiving breathing treatments pulmonary is following the patient continue with the respiratory support your patient does have a competent of heart failure patient appears to have systolic dysfunction with acute exacerbation patient will be continued on oral Lasix and gentle diuresis as patient has borderline blood pressure and was septic yesterday with lactic acidosis. -Lactic acidosis secondary to sepsis on admission which is again secondary to influenza infection which is improving although her left lower lobe pneumonia cannot be ruled out because of which patient and antibiotics for pneumonia postinfluenzal pneumonia cannot be ruled out - congestive heart failure EF 35% chronic systolic dysfunction with acute exacerbation is not known at appears to be in acute exacerbation IV fluids were discontinued patient blood pressures fairly okay now earlier and yesterday patient blood pressure was low with lactic acidosis -History of Medina's palsy with residual weakness on the right side of the face -History of proximal atrial fibrillation not on anticoagulation patient is presently rate controlled patient has a pacer and AICD -Hypertension -Hyperlipidemia -Hypothyroidism -Coronary artery disease -Sleep apnea uses CPAP machine at home -DVT prophylaxis with subcutaneous heparin
--- NOTE | 2019-07-25 15:17 | ECHOF ---
Referral Reason:nstemi MEASUREMENTS -------- HEIGHT: 172.7 cm WEIGHT: 93.0 kg BP: 110/55 RVIDd: 5.7 cm (< 3.3) IVSd: 1.8 cm (0.6 - 1.1) LVIDd: 4.7 cm (3.9 - 5.3) LVPWd: 1.8 cm (0.6 - 1.1) IVSs: 1.9 cm LVIDs: 3.5 cm LVPWs: 2.7 cm LAESV Index (A-L): 81.57 ml/m Ao Diam: 3.4 cm (2.0 - 3.7) AV Cusp: 1.3 cm (1.5 - 2.6) MV EXCURSION: 20.043 mm (> 18.000) MV EF SLOPE: 95 mm/s (70 - 150) EPSS: 1.1 cm AV maxP.90 mmHg AV meanP.40 mmHg AR PHT: 740 ms RAP: 20.00 mmHg RVSP: 74.96 mmHg FINDINGS -------- Ventricularly paced rhythm. This was a technically difficult study with suboptimal apical views. The left ventricular size is normal. There is severe concentric left ventricular hypertrophy. Ove rall left ventricular systolic function is mild-moderately impaired with, an EF between 40 - 45 %. Mitral Doppler inflow pattern suggests diastolic filling abnormality {E/E'}. The right ventricle is moderate to severely enlarged. LA is severely dilated >40 ml/m2 The right atrium is moderately enlarged. xx ml of Lumason was utilized for enhancement of images. Interatrial and interventricular septum intact. There is mild aortic regurgitation. There is zcovzlts-po-vrwnum aortic stenosis present. Peak/dahlia n gradient across the Aortic Valve is 61.90mmHg / 39.40mmHg. Mild mitral annular calcification present. Moderate mitral regurgitation is present. Moderate tricuspid regurgitation present. There is severe pulmonary hypertension. The right ventr icular systolic pressure, as measured by Doppler, is 74.96mmHg. The pulmonic valve was not well visualized. The aortic root size is normal. The inferior vena cava is dilated with no significant inspiratory collapse which is consistent estima lamont right atrial pressure of >20 mmHg. There is no pericardial effusion. CONCLUSIONS -------- 1. Ventricularly paced rhythm. 2. This was a technically difficult study with suboptimal apical views. 3. The left ventricular size is normal. 4. There is severe concentric left ventricular hypertrophy. 5. Overall left ventricular systolic function is mild-moderately impaired with, an EF between 40 - 45 %. 6. Mitral Doppler inflow pattern suggest diastolic filling abnormality {E/E'}. 7. The right ventricle is moderate to severely enlarged. 8. LA is severely dilated >40 ml/m2 9. The right atrium is moderately enlarged. 10. xx ml of Lumason was utilized for enhancement of images. 11. Interatrial and interventricular septum intact. 12. There is mild aortic regurgitation. 13. There is fziegtlt-hu-zfaxsa aortic stenosis present. 14. Peak/mean gradient across the Aortic Valve is 61.90mmHg / 39.40mmHg. 15. Mild mitral annular calcification present. 16. Moderate mitral regurgitation is present. 17. Moderate tricuspid regurgitation present. 18. There is severe pulmonary hypertension. 19. The right ventricular systolic pressure, as measured by Doppler, is 74.96mmHg. 20. The pulmonic valve was not well visualized. 21. The aortic root size is normal. 22. The inferior vena cava is dilated with no significant inspiratory collapse which is consistent es timated right atrial pressure of >20 mmHg. 23. There is no pericardial effusion. [employer]EDER: Chey Tran RDCS
[2019-07-25] MEDS ORDERED: METOPROLOL SUCCINATE (ER) 25 MG TAB.ER.24H PO SCH (17:00)
[2019-07-25] MEDS ORDERED: LEVOFLOXACIN 750MG-D5W PMX 750 MG in DEXTROSE/WATER 1 150ML.BAG IVPB SCH (20:00)
[2019-07-25] MEDS: HEPARIN SODIUM,PORCINE 5,000 UNIT/ML 1 ML VIAL SQ SCH (21:41)
[2019-07-25] MEDS: EZETIMIBE 10 MG TAB PO SCH (21:41)
[2019-07-26] MEDS: PIPERACILLIN-TAZOBACTAM 3.375 GM in SODIUM CHLORIDE 0.9% 100 ML IVPB SCH ×3 (04:40→20:50)
[2019-07-26 04:45] LABS: Basophils % (A) 0 %; Eosinophils % (A) 0 %; HCT 31.2 % (39.0-53.0); Hypochromasia Slight; Lymphocytes # (A) 1.1 k/uL (1.0-4.8); Lymphocytes % (A) 16 %; MCH 35.6 pg (25.0-35.0); Macrocytosis Marked; Mean Platelet Volume 8.4; Monocytes # (A) 0.2 k/uL (0-1.0); Monocytes % (A) 3 %; Neutrophils # (A) 5.3 k/uL (1.3-7.7); Neutrophils % (A) 79 %; Platelet Count 161 k/uL (150-450); RBC 2.81 m/uL (4.30-5.90); RDW 13.2 % (11.5-15.5); WBC 6.7 k/uL (3.8-10.6)
[2019-07-26 04:59] LABS: Calcium 8.1 mg/dL (8.4-10.2)
--- NOTE | 2019-07-26 06:06 | XR ---
EXAMINATION TYPE: XR chest 1V portable DATE OF EXAM: 07/26/2019 HISTORY: Pneumonia. REFERENCE: Previous study dated 07/25/2019. FINDINGS: Multilead pacing device is in place on the left. There is multichamber cardiac enlargement. There is vascular congestion and mild interstitial change. There is left basilar airspace disease. There are small, bilateral effusions. IMPRESSION: NO SIGNIFICANT INTERVAL CHANGE IN THE APPEARANCE OF THE CHEST.
[2019-07-26] MEDS ORDERED: LEVOTHYROXINE 125 MCG TAB PO SCH (06:30)
[2019-07-26] MEDS: GLIMEPIRIDE 1 MG TAB PO SCH (07:13)
[2019-07-26] MEDS: OSELTAMIVIR 60 MG/10 ML ORAL SYRINGE PO SCH (08:34)
[2019-07-26] MEDS: ERGOCALCIFEROL 50,000 UNIT CAP PO SCH (08:34)
[2019-07-26] MEDS: AMIODARONE 200 MG TAB PO SCH (08:34)
[2019-07-26] MEDS: HEPARIN SODIUM,PORCINE 5,000 UNIT/ML 1 ML VIAL SQ SCH ×2 (08:34→21:25)
[2019-07-26] MEDS: FUROSEMIDE 40 MG TAB PO SCH (08:34)
[2019-07-26] MEDS: methylPREDNISolone SOD SUCCI 40 MG/ML 1 ML VIAL IV SCH ×2 (08:35→21:25)
--- NOTE | 2019-07-26 08:37 | P.PN ---
Subjective Progress Note Date: 07/26/19 Principal diagnosis: Abnormal cardiac enzymes This is a very pleasant 84-year-old gentleman with a past medical history significant for long-standing persistent atrial fibrillation, for some reasons, the patient is not on oral anticoagulation, peripheral vascular disease, hypert ension, and dyslipidemia, and also chronic kidney disease, presented to the emergency room complaining of weakness associated with shortness of breath. The patient somewhat is a poor historian. He stated that he does have a baseline shortness of breath with exertion but yesterday shortness of breath was increasing and he was at home when he felt weak and fell out of his chair. He clearly stated that he did not lose his consciousness. Does not recall having any symptoms of dizziness or lightheadedness, heart racing or fluttering, or any symptoms of chest pain or chest discomfort. The patient was found to be positive for flu. Currently he is on isolation. The blood pressure has been marginal. The EKG showed underlying atrial fibrillation with wide complex QRS. The troponin with first set came in to be slightly abnormal. The chest x-ray showed small bilateral pleural effusion. The BNP came in to be elevated at 7000. The patient clearly stated that he did not have any symptoms of chest pain or chest discomfort. Please note that the patient does have chronic kidney disease but his creatinine today is worse. Otherwise the patient denies having any abdominal pain or abdominal discomfort, fever, nausea or vomiting. The patient was seen today, July [id number]. He is feeling better internal shortness of breath. He was positive for influenza. Currently is on isolation. Hemodynamically he is having Margene no blood pressure as well as marginal heart rate. I'm going to decrease the dose of losartan to 25 mg by mouth daily and also decreased dose of Toprol-XL 25 mg daily. We will interrogate his pacemaker why he is here. The echocardiogram revealed impaired LV function was EF around 40-45% was evidence of severe aortic stenosis. He does have very distant heart sounds on examination and the murmur of the aortic stenosis was not well appreciated. Objective - Vital Signs Vital signs: Vital Signs Temp 98.2 F 07/26/19 04:00 Pulse 52 L 07/26/19 04:00 Resp 20 07/26/19 04:00 BP 124/65 07/26/19 04:00 Pulse Ox 96 07/26/19 04:00 Intake & Output 07/25/19 07/26/19 07/26/19 18:59 06:59 18:59 Intake Total 380 400 Output Total 700 800 Balance -320 -400 Weight 93 kg Intake: IV 380 400 .9 380 400 Output: Urine 700 800 Other: Voiding Method Urinal Urinal - Constitutional General appearance: Present: no acute distress - Respiratory Respiratory: bilateral: CTA - Cardiovascular Rhythm: regular Heart sounds: normal: S1, S2 Abnormal Heart Sounds: Present: systolic murmur - Labs CBC & Chem 7: 07/26/19 04:21 07/26/19 04:21 Labs: Abnormal Lab Results - Last 24 Hours (Table) 07/25/19 07/25/19 07/26/19 Range/Units 04:54 14:36 04:21 RBC 2.81 L (4.30-5.90) m/uL Hgb 10.0 L (13.0-17.5) gm/dL Hct 31.2 L (39.0-53.0) % MCV 111.0 H (80.0-100.0) fL MCH 35.6 H (25.0-35.0) pg Macrocytosis Marked A Chloride (98-107) mmol/L Carbon Dioxide (22-30) mmol/L BUN (9-20) mg/dL Creatinine (0.66-1.25) mg/dL Calcium (8.4-10.2) mg/dL Troponin I 0.195 H* 0.138 H* (0.000-0.034) ng/mL 07/26/19 Range/Units 04:21 RBC (4.30-5.90) m/uL Hgb (13.0-17.5) gm/dL Hct (39.0-53.0) % MCV (80.0-100.0) fL MCH (25.0-35.0) pg Macrocytosis Chloride 112 H (98-107) mmol/L Carbon Dioxide 17 L (22-30) mmol/L BUN 40 H (9-20) mg/dL Creatinine 2.77 H (0.66-1.25) mg/dL Calcium 8.1 L (8.4-10.2) mg/dL Troponin I (0.000-0.034) ng/mL Microbiology - Last 24 Hours (Table) 02/21/20 20:10 Blood Culture - Preliminary Blood No Growth after 24 hours 07/24/19 17:31 Blood Culture - Preliminary Blood No Growth after 24 hours Assessment and Plan Assessment: Assessment #1 generalized weakness and fatigue #2 shortness of breath likely to be multifactorial #3 flulike symptoms #4 long-standing persistent atrial fibrillation was controlled heart rate #5 margin the low blood pressure #6 acute on chronic renal failure Plan #1 the patient is not in any overt congestive heart failure #2 the creatinine has improved after the IV fluid yesterday #3 decrease the dose of losartan as well as Toprol-XL in view of the margin a low blood pressure and heart rate #4 echo revealed severe aortic stenosis and cardiomyopathy as described above #5 follow-up with the patient
[2019-07-26] MEDS: METOPROLOL SUCCINATE (ER) 25 MG TAB.ER.24H PO SCH (08:41)
[2019-07-26] MEDS: IPRATROPIUM-ALBUTEROL 3 ML NEB INHALATION SCH ×4 (09:06→19:37)
--- NOTE | 2019-07-26 09:33 | P.NPCON ---
History of Present Illness - Reason for Consult Consult date: 07/26/19 acute renal failure - Chief Complaint Shortness of breath and pneumonia with acute kidney - History of Present Illness This is an 84-year-old male who is known to us with chronic kidney disease stage IV, details of his creatinine and GFR not available. He was admitted because of generalized weakness cough shortness of breath for about 3-4 days prior to admission. He is positive for influenza A. He was diuresed and placed on IV antibiotics and is feeling better. A chest x- ray is suggestive congestive heart failure Patient was symptomatic with generalized weakness to the point that he was using a walker to walk. He fell off of a chair and that brought him to the emergency room A few days ago on 07/21/2019 he was seen by his primary physician and placed on sulfa tablets because of a urinalysis or urine gross examination that live abnormal. Patient did not have any symptoms suggestive of urine tract infection. Details of what sulfa tablets he took is unclear he might have taken 2 tablets on Further workup has shown an echocardiogram 40-45% ejection fraction LVH, moderate to severe aortic stenosis severe pulmonary hypertension with right ventricular systolic pressure being 74 Past Medical History Past Medical History: Atrial Fibrillation, Coronary Artery Disease (CAD), Cancer, Diabetes Mellitus, Eye Disorder, Hyperlipidemia, Hypertension, Neurologic Disorder, Osteoarthritis (OA), Sleep Apnea/CPAP/BIPAP, Thyroid Disorder, Vascular Disorder Additional Past Medical History / Comment(s): 1992 bladder cancer with cauterization, ERICK with CPAP, bilateral varicosities with L leg worse, PVD, balance issues, low back pain, arthritis to back and knees bilaterally, 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 Past Anesthesia/Blood Transfusion Reactions: No Reported Reaction Type of Cardiac Device: Permanent Pacemaker, AICD Device Placement Date:: 09/28/11 Past Psychological History: No Psychological Hx Reported Smoking Status: Former smoker Past Alcohol Use History: Rare Past Drug Use History: None Reported - Past Family History Mother Family Medical History: Cancer Additional Family Medical History / Comment(s): Mother had leukemia. She at the age of 80 yrs. Father Family Medical History: Osteoarthritis (OA) Additional Family Medical History / Comment(s): Father had severe arthritis. He in his late 70's Medications and Allergies Home Medications Medication Instructions Recorded Confirmed Type Amiodarone [Cordarone] 200 mg PO DAILY 01/16/16 07/24/19 History Ezetimibe [Zetia] 10 mg PO HS 01/16/16 07/24/19 History Finasteride [Proscar] 5 mg PO DAILY@1200 01/16/16 07/24/19 History Furosemide [Lasix] 60 mg PO DAILY 01/16/16 07/24/19 History Levothyroxine Sodium [Synthroid] 125 mcg PO [id number] 01/16/16 07/24/19 History Losartan [Cozaar] 25 mg PO BID 01/16/16 07/24/19 History Metoprolol Succinate (ER) [Toprol 25 mg PO BID@0900,1700 01/16/16 07/24/19 History XL] Potassium Chloride ER [K-Dur 10] 10 meq PO DAILY@1200 01/16/16 07/24/19 History Ascorbic Acid [Vitamin C] 1,000 mg PO DAILY@1200 07/24/19 07/24/19 History Atorvastatin [Lipitor] 20 mg PO DAILY@1200 07/24/19 07/24/19 History Black Reyes 1 cap PO BID@1200,2100 07/24/19 07/24/19 History Ergocalciferol [Vitamin D2] 50,000 unit PO SUWE 07/24/19 07/24/19 History Focus 1 tab PO BID 07/24/19 07/24/19 History Glimepiride [Amaryl] 0.5 mg PO AC-BRKFST 07/24/19 07/24/19 History Glucosam/George-Msm1/C/Roe/Bosw 1 tab PO BID@1200,2100 07/24/19 07/24/19 History [Glucosamine-Chondroitin Tablet] Levothyroxine Sodium [Synthroid] 62.5 mcg PO ARREDONDO 07/24/19 07/24/19 History Oil Of Oregano 1 cap PO W/SUPPER 07/24/19 07/24/19 History Moultrie-3 Fatty Acids [Moultrie-3] 1,000 mg PO W/SUPPER 07/24/19 07/24/19 History Turmeric Root Extract [Turmeric] 500 mg PO W/SUPPER 07/24/19 07/24/19 History Ubidecarenone [Co Q-10] 100 mg PO W/SUPPER 07/24/19 07/24/19 History Vitamin B Complex 1 cap PO W/SUPPER 07/24/19 07/24/19 History amLODIPine [Norvasc] 10 mg PO DAILY 07/24/19 07/24/19 History Allergies Allergy/AdvReac Type Severity Reaction Status Date / Time morphine Allergy Nausea & Verified 07/24/19 20:56 Vomiting Physical Exam Vitals: Vital Signs Temp Pulse Pulse Pulse Resp BP Pulse Ox 07/26/19 09:18 50 L 07/26/19 09:07 50 L 07/26/19 08:00 97.4 F L 53 L 22 126/63 96 07/26/19 04:00 98.2 F 52 L 20 124/65 96 07/26/19 00:00 98.4 F 50 L 18 107/61 96 07/25/19 20:48 57 L 07/25/19 20:38 56 L 07/25/19 20:00 98.2 F 54 L 20 124/66 94 L 07/25/19 16:16 50 L 07/25/19 16:04 50 L 07/25/19 16:00 98.2 F 57 L 25 H 101/51 98 07/25/19 12:49 49 L 07/25/19 12:35 51 L 07/25/19 12:00 97.8 F 69 20 121/75 94 L 07/25/19 09:21 49 L Intake and Output 07/25/19 07/26/19 07/26/19 22:59 06:59 14:59 Intake Total 30 400 Output Total 200 800 Balance -170 -400 Intake: IV 30 400 .9 30 400 Output: Urine 200 800 Other: Voiding Method Urinal Urinal Weight 93 kg On examination is awake alert oriented comfortable on nasal cannula oxygen HEENT exam JVP is elevated about 7-8 cm about sternal angle neck is supple no facial asymmetry Lungs are significant for bilateral end expiratory wheezing. Fairly good air entry bilaterally Heart sounds are unremarkable for any murmur rub gallop. He is in normal sinus rhythm but wide complexes on EKG Abdomen soft nontender no organomegaly ascites masses Extremity exam was minimal edema Neurologically awake alert oriented Results - Lab Results Most recent lab results Calcium 8.1 mg/dL (8.4-10.2) L 07/26/19 04:21 Magnesium 2.2 mg/dL (1.6-2.3) 07/24/19 17:35 07/26/19 04:21 07/26/19 04:21 Assessment and Plan Assessment: Impression 1. Acute kidney injury secondary to prerenal with low blood pressure and influenza A pneumonia here 2. Possibility of self-induced acute kidney injury is considered but 2 tablets for a presumed UTI, based on urine, but asymptomatic 3. Known chronic kidney disease stage IV details not available. The previous creatinine here in the past, creatinine 1.5 dated 02/13/2016 3-1/2 years ago. 4. Echocardiogram this admission shows, moderate to severe aortic stenosis, ejection fraction 40%, Severe right ventricular hypertension 5. Influenza A pneumonia 6. Mild degree of non-gap acidosis from acute kidney injury and probably chronic kidney disease. Gap was 8 and his bicarb was 18. 7. Diabetes mellitus, rule out diabetic nephropathy. 8. Anemia of chronic kidney disease Recommendation 1. Would discontinue IV fluids and maintain diuretics 2. Watch renal profile, intake and output and blood pressures as his blood pressure is somewhat low, he is on losartan and metoprolol small doses and Lasix 60 mg daily. 3. Start sodium bicarb 650 twice a day. 4. Check iron saturation. 5. Check orthostatic changes to assess degree of diuresis. 6. If creatinine goes up or blood pressure goes down, we can reduce his antihypertensive medications Thank you for this consultation and continue to follow
--- NOTE | 2019-07-26 10:18 | P.PN ---
Subjective Progress Note Date: 07/26/19 This is an 84-year-old male patient who came into the ED with shortness of kalli th. Actually he was feeling weak and he fell out of his chair hitting his head. He did not lose any consciousness. He was mildly unresponsive with a low pulse oximeter based on the caregiver. The patient was found by EMS and he was quite short of breath and was placed on a BiPAP and following that he was brought into the ED. He felt better while on the BiPAP. He admitted to be quite weak for the past few weeks noted getting progressively more short of breath and he was having recent fevers along without nausea vomiting and diarrhea. He is currently on BiPAP at a pressure of 12/6 with an FiO2 of 50%. The initial workup that was done in the ED showed a white cell count of 9.5 with a he moglobin of 11.4. The white cell count today is down to 6.2. He also had an acute on top of chronic kidney injury. His creatinine at baseline from 2016 was 1.5 inch was up to 3.23 and is obviously improving and today's value is down to 2.9. His lactic acid level was at 3.3 at time of admission is currently not 0.4. He had a troponin leak with level of 0.09 and 0.195 respectively 2. His proBNP level was 9819. He checked positive for influenza A. His hemoglobin dropped from 11.4 down to 9.6. The patient was given a bolus of 500 mL in the emergency department. Currently is on KVO. Chest x-ray showed cardiomegaly and mild vascular congestion. There could be some airspace disease in the left lung base reflecting pneumonia versus atelectasis. Small bilateral pleural effusion is present. The patient also has a pacemaker over the left anterior chest area. CAT scan of the head and cervical spine was done in the ED and it showed multilevel spondylotic changes in the cervical spine without any fracture. There was cerebral atrophy without any acute abnormalities noted. His cardiac rhythm currently is paced In terms of his cardiac history, the patient is known to have long history of atrial fibrillation. He has not been on anticoagulation and the exact reason for that is not known. He has peripheral vascular disease along with hypertension and hyperlipidemia and chronic kidney disease as mentioned. He has also coronary artery disease and he is diabetic and has obstructive sleep apnea and remote history of bladder cancer that was in 1992 that was treated locally by resection. 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 Currently has a pacer/AICD in place. He also has a previous history of left ear mastoiditis and chronic suppurative otitis media of the left ear underwent tympanoplasty and tube placement. On today's evaluation of 07/26/2019 the patient is off the BiPAP and is currently using oxygen at 6 L. He was on BiPAP throughout the day yesterday and by evening he has switched to nasal cannula. Overnight use the BiPAP and currently is on nasal cannula at 6 L. Feeling well. No fever. No chills. No nausea. No vomiting. No diarrhea. No abdominal pain. The renal function continues to improve in the creatinine is down to 2.7. He did have a component of non-anion gap metabolic acidosis and based on that he was started on oral bicarb. Serum bicarbs at 17. The patient has no leukocytosis. He is on Tamiflu and he is also on empiric antibiotic coverage with Levaquin 750 every 48 hours. Echocardiogram was done and the patient was found to have an LV function of 40-45%. Also, the patient was found to have severe pulmonary hypertension with a estimated right ventricular systolic pressure of 74 mmHg. He also had moderate to severe aortic stenosis. Peak gradient across the valve was 61 mmHg. There was moderate mitral regurgitation. There was moderate tricuspid regurgitation. The patient is still ventricularly paced. The pacemaker needs to be checked as I felt that the pacing is not appropriate based on EKG findings. I also discussed this with cardiology. He was seen by nephrology. Oral bicarb was added. He is on Lasix 60 mg by mouth daily. He remains on IV Solu-Medrol. He remains on DuoNeb nebulized treatment [id number]. Objective - Vital Signs Vital signs: Vital Signs Temp 97.4 F L 07/26/19 08:00 Pulse 50 L 07/26/19 09:18 Resp 22 07/26/19 08:00 BP 126/63 07/26/19 08:00 Pulse Ox 96 07/26/19 08:00 Intake & Output 07/25/19 07/26/19 07/26/19 18:59 06:59 18:59 Intake Total 380 400 50 Output Total 700 800 0 Balance -320 -400 50 Weight 93 kg Intake: IV 380 400 50 .9 380 400 50 Output: Urine 700 800 0 Other: Voiding Method Urinal Urinal - Exam Gen. appearance, comfortable and interactive and following commands and answering questions currently on 6 L of oxygen by nasal cannula Head exam was generally normal. There was no scleral icterus or corneal arcus. Mucous membranes were moist. Neck was supple and without jugular venous distension, thyromegaly, or carotid bruits. Carotids were easily palpable bilaterally. There was no adenopathy. Lungs sounds are diminished bilaterally along with some few crackles in lung bases and scattered expiratory wheezes Heart sounds are distant, positive S1-S2, irregular, paced with a pacemaker pocket seen over the left anterior chest area. Sternum stable clean and intact. No use of accessory muscles of breathing at this point in time. No significant murmurs appreciated. Abdominal exam revealed normal bowel sounds. The abdomen was soft, non-tender, and without masses, organomegaly, or appreciable enlargement of the abdominal aorta. Examination of the extremities revealed easily palpable radial, femoral and pedal pulses. There was no cyanosis, clubbing or edema. Examination of the skin revealed no evidence of significant rashes, suspicious appearing nevi or other concerning lesions. Neurologically awake and alert and is no focal neurological deficits. - Labs CBC & Chem 7: 07/26/19 04:21 07/26/19 04:21 Labs: Abnormal Lab Results - Last 24 Hours (Table) 07/25/19 07/26/19 07/26/19 Range/Units 14:36 04:21 04:21 RBC 2.81 L (4.30-5.90) m/uL Hgb 10.0 L (13.0-17.5) gm/dL Hct 31.2 L (39.0-53.0) % MCV 111.0 H (80.0-100.0) fL MCH 35.6 H (25.0-35.0) pg Macrocytosis Marked A Chloride 112 H (98-107) mmol/L Carbon Dioxide 17 L (22-30) mmol/L BUN 40 H (9-20) mg/dL Creatinine 2.77 H (0.66-1.25) mg/dL Calcium 8.1 L (8.4-10.2) mg/dL Troponin I 0.138 H* (0.000-0.034) ng/mL Microbiology - Last 24 Hours (Table) 07/24/19 20:10 Blood Culture - Preliminary Blood No Growth after 24 hours 07/24/19 17:31 Blood Culture - Preliminary Blood No Growth after 24 hours Assessment and Plan Plan: 1 acute influenza a pulmonary infection/influenza syndrome with generalized weakness and shortness of breath and no extra pulmonary manifestations 2 acute hypoxic respiratory failure secondary to above in addition to a component of CHF exacerbation. The possibility of left lower lobe pneumonia cannot be completely excluded. Currently off the BiPAP and the patient is on 6 L of oxygen by nasal cannula. The patient needs to be utilizing his BiPAP overnight as the patient has obstructive sleep apnea in addition. 3 acute lactic acidosis, improving to monitor the patient currently has a component of non-anion gap metabolic acidosis, and the lactic acid level is down to 1.4. 4 acute on chronic kidney injury. The patient has baseline chronic stage III kidney failure and the creatinine is improving and started on to 2.7. The patient also has a component of non-anion gap metabolic acidosis started on oral bicarbonate 5 coronary artery disease, with abnormal troponins. Consider troponin leak. The EKG showing a paced rhythm at the rate of 53. 6 severe aortic stenosis, severe pulmonary hypertension with an LV function mildly impaired with an ejection fraction of 40-45% 7 obstructive sleep apnea maintained on CPAP therapy on outpatient basis. The patient currently is on a CPAP machine and I evaluated him back in November 2018 I put him on a minimum pressure of 5 and a maximum pressure of 20 with a pressure support of 3. He was quite compliant with that setting. 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 The patient has a pacer/AICD in place 19 peripheral vascular disease Plan Gentle hydration with normal saline at the rate of 10 mL an hour Continue Lasix Drop the Cozaar and Lopressor dosing due to concerns of hypotension along with an underlying aortic stenosis Monitor renal function Droplet isolation Tamiflu for influenza A IV Solu-Medrol 40 mg every 8 hours DuoNeb nebulized treatments every 6 hours and when necessary Echocardiogram results were noted Cardiology to check on the pacemaker Discontinue the BiPAP and give the patien oxygen during the day and the BiPAP can still be used overnight Start oral bicarbonate Cardiology regarding the troponin leak We'll continue to follow
[2019-07-26] MEDS: ATORVASTATIN 20 MG TAB PO SCH (11:18)
[2019-07-26] MEDS: FINASTERIDE 5 MG TAB PO SCH (11:19)
[2019-07-26] MEDS: ASCORBIC ACID 500 MG TAB PO SCH (11:19)
[2019-07-26] MEDS: LOSARTAN 25 MG TAB PO SCH (11:19)
[2019-07-26] MEDS: POTASSIUM CHLORIDE ER 10 MEQ TAB.ER.PRT PO SCH (11:19)
[2019-07-26] MEDS: SODIUM CHLORIDE 0.9% 1,000 ML IV SCH (11:19)
[2019-07-26] MEDS: SODIUM BICARBONATE TAB 650 MG TAB PO SCH ×2 (11:19→21:26)
--- NOTE | 2019-07-26 14:41 | P.PN ---
Subjective 83-year-old male with complains of shortness of breath generalized weakness and fever found to have influenza, patient denied any COPD history patient denied any history of smoking. But patient is wheezing on exam patient is presently on BiPAP admitted to ICU pulmonology and cardio evaluated the patient. Patient chest x-ray now showing pulmonary edema, there is infiltrate in the left lower lung garcia small bilateral pleural effusions. Patient had lactic is doses on admission which resolved at this time patient that it might pulmonary edema which is much worse now after IV fluids. Patient does have history of atrial fibrillation, unsure whether patient has history of congestive heart failure do not have any echocardiogram available. BNP is a 9890. Patient is rate controlled. 07/26/2019 Patient is in aspirin logs in today BiPAP was discontinued and patient is still having expiratory wheezing creatinine has gone down to 2.7 patient is non-anion gap metabolic acidosis secondary to acute renal failure for which patient on oral bicarbonate patient was resumed on lisinopril. Constitutional: Denied any fatigue denied any fever. Cardio vascular: denied any chest pain, palpitations Gastrointestinal denied any nausea vomiting Pulmonary: Significant improvement in shortness of breath Neurologic denied any new focal deficits All inpatient medications were reviewed and appropriate changes in these medications as dictated in the interval history and assessment and plan. Objective - Vital Signs Vital signs: Vital Signs Temp 98.2 F 07/26/19 12:00 Pulse 57 L 07/26/19 12:15 Resp 20 07/26/19 12:00 BP 137/70 07/26/19 12:00 Pulse Ox 93 L 07/26/19 12:00 Intake & Output 07/25/19 07/26/19 07/26/19 18:59 06:59 18:59 Intake Total 380 400 150 Output Total 700 800 300 Balance -320 -400 -150 Weight 93 kg Intake: IV 380 400 150 .9 380 400 150 Output: Urine 700 800 300 Other: Voiding Method Urinal Urinal Urinal - Exam PHYSICAL EXAMINATION: GENERAL: The patient is alert and oriented x3, not in any acute distress. Well developed, well nourished. HEENT: Pupils are round and equally reacting to light. EOMI. No scleral icterus. No conjunctival pallor. Normocephalic, atraumatic. No pharyngeal erythema. No thyromegaly. CARDIOVASCULAR: S1 and S2 present. No murmurs, rubs, or gallops. PULMONARY: Diffuse bilateral wheezing previous or crackles although wheezing appears to have improved compared to yesterday ABDOMEN: Soft, nontender, nondistended, normoactive bowel sounds. No palpable organomegaly. MUSCULOSKELETAL: No joint swelling or deformity. EXTREMITIES: No cyanosis, clubbing, or pedal edema. NEUROLOGICAL: Gross neurological examination did not reveal any focal deficits. SKIN: No rashes. - Labs CBC & Chem 7: 07/26/19 04:21 07/26/19 04:21 Labs: Abnormal Lab Results - Last 24 Hours (Table) 07/25/19 07/26/19 07/26/19 Range/Units 14:36 04:21 04:21 RBC 2.81 L (4.30-5.90) m/uL Hgb 10.0 L (13.0-17.5) gm/dL Hct 31.2 L (39.0-53.0) % MCV 111.0 H (80.0-100.0) fL MCH 35.6 H (25.0-35.0) pg Macrocytosis Marked A Chloride 112 H (98-107) mmol/L Carbon Dioxide 17 L (22-30) mmol/L BUN 40 H (9-20) mg/dL Creatinine 2.77 H (0.66-1.25) mg/dL Calcium 8.1 L (8.4-10.2) mg/dL Troponin I 0.138 H* (0.000-0.034) ng/mL Microbiology - Last 24 Hours (Table) 07/24/19 20:10 Blood Culture - Preliminary Blood No Growth after 24 hours 07/24/19 17:31 Blood Culture - Preliminary Blood No Growth after 24 hours Assessment and Plan Plan: -Acute hypoxic and possible hypercapnic respiratory failure acute influenza pat ient may have bronchospasm severe from influenza is receiving breathing treatments pulmonary is following the patient continue with the respiratory support your patient does have a competent of heart failure patient appears to have systolic dysfunction with acute exacerbation patient will be continued on oral Lasix and gentle diuresis as patient has borderline blood pressure and was septic on admission with lactic acidosis. -Lactic acidosis secondary to sepsis on admission which is again secondary to influenza infection which is improving although her left lower lobe pneumonia cannot be ruled out because of which patient and antibiotics for pneumonia postinfluenzal pneumonia cannot be ruled out - congestive heart failure EF 35% chronic systolic dysfunction with acute exacerbation is not known at appears to be in acute exacerbation IV fluids were discontinued patient blood pressures fairly okay now earlier and yesterday patient blood pressure was low with lactic acidosis -Severe pulmonary hypertension and an moderate to severe aortic stenosis Noniron gap metabolic acidosis for which the patient is on oral bicarbonate supplementation nephrology evaluated the patient -History of Medina's palsy with residual weakness on the right side of the face -History of proximal atrial fibrillation not on anticoagulation patient is presently rate controlled patient has a pacer and AICD -Hypertension -Hyperlipidemia -Hypothyroidism -Coronary artery disease -Sleep apnea uses CPAP machine at home -DVT prophylaxis with subcutaneous heparin
[2019-07-26] MEDS ORDERED: LEVOFLOXACIN 750MG-D5W PMX 750 MG in DEXTROSE/WATER 1 150ML.BAG IVPB SCH (21:00)
[2019-07-26] MEDS: EZETIMIBE 10 MG TAB PO SCH (21:25)
[2019-07-27] MEDS: PIPERACILLIN-TAZOBACTAM 3.375 GM in SODIUM CHLORIDE 0.9% 100 ML IVPB SCH ×2 (05:34→21:27)
[2019-07-27 06:26] LABS: Glucose,Whole Blood 152 mg/dL (75-99)
[2019-07-27] MEDS: LEVOTHYROXINE 125 MCG TAB PO SCH (06:49)
[2019-07-27] MEDS: SODIUM CHLORIDE 0.9% 1,000 ML IV SCH (06:49)
[2019-07-27] MEDS: GLIMEPIRIDE 1 MG TAB PO SCH (06:50)
[2019-07-27] MEDS: IPRATROPIUM-ALBUTEROL 3 ML NEB INHALATION SCH ×4 (08:39→19:11)
[2019-07-27] MEDS: METOPROLOL SUCCINATE (ER) 25 MG TAB.ER.24H PO SCH (08:52)
[2019-07-27] MEDS: HEPARIN SODIUM,PORCINE 5,000 UNIT/ML 1 ML VIAL SQ SCH ×2 (08:52→21:26)
[2019-07-27] MEDS: methylPREDNISolone SOD SUCCI 40 MG/ML 1 ML VIAL IV SCH ×2 (08:52→21:25)
[2019-07-27] MEDS: FUROSEMIDE 40 MG TAB PO SCH (08:52)
[2019-07-27] MEDS: SODIUM BICARBONATE TAB 650 MG TAB PO SCH ×2 (08:53→21:26)
[2019-07-27] MEDS: AMIODARONE 200 MG TAB PO SCH (08:53)
[2019-07-27] MEDS: LOSARTAN 25 MG TAB PO SCH (08:53)
[2019-07-27] MEDS: OSELTAMIVIR 60 MG/10 ML ORAL SYRINGE PO SCH (09:54)
[2019-07-27 10:20] LABS: % Iron Saturation 6.45 (15.00-50.00)
[2019-07-27 10:57] LABS: Calcium 8.5 mg/dL (8.4-10.2)
[2019-07-27 11:04] LABS: Potassium 3.7 mmol/L (3.5-5.1)
--- NOTE | 2019-07-27 11:31 | P.PN ---
Subjective 83-year-old male with complains of shortness of breath generalized weakness and fever found to have influenza, patient denied any COPD history patient denied any history of smoking. But patient is wheezing on exam patient is presently on BiPAP admitted to ICU pulmonology and cardio evaluated the patient. Patient chest x-ray now showing pulmonary edema, there is infiltrate in the left lower lung garcia small bilateral pleural effusions. Patient had lactic is doses on admission which resolved at this time patient that it might pulmonary edema which is much worse now after IV fluids. Patient does have history of atrial fibrillation, unsure whether patient has history of congestive heart failure do not have any echocardiogram available. BNP is a 9890. Patient is rate controlled. 07/26/2019 Patient is in aspirin logs in today BiPAP was discontinued and patient is still having expiratory wheezing creatinine has gone down to 2.7 patient is non-anion gap metabolic acidosis secondary to acute renal failure for which patient on oral bicarbonate patient was resumed on lisinopril. 07/27/2019 patient is feeling much better today patient is not wheezing today creatinine continue to improve and is around 2.47 today. Losartan will be held until his kidney function returns to his baseline Constitutional: Denied any fatigue denied any fever. Cardio vascular: denied any chest pain, palpitations Gastrointestinal denied any nausea vomiting Pulmonary: Significant improvement in shortness of breath Neurologic denied any new focal deficits All inpatient medications were reviewed and appropriate changes in these medications as dictated in the interval history and assessment and plan. Objective - Vital Signs Vital signs: Vital Signs Temp 97.3 F L 07/27/19 08:45 Pulse 90 07/27/19 08:52 Resp 18 07/27/19 08:45 BP 137/75 07/27/19 08:45 Pulse Ox 99 07/27/19 08:45 Intake & Output 07/26/19 07/27/19 07/27/19 18:59 06:59 18:59 Intake Total 320 10 230 Output Total 1000 600 Balance -680 -590 230 Weight 92.8 kg Intake: IV 220 10 .9 220 10 Intake, IV Titration 100 230 Amount Levofloxacin 750Mg-D5w 150 Pmx 750 mg In Dextrose/ Water 1 150ml.bag @ 100 mls/hr IVPB Q48H [facility] Rx#: [id number] Piperacillin-Tazobactam 3 100 .375 gm In Sodium Chloride 0.9% 100 ml @ 25 mls/hr IVPB Q8H [facility] Rx#: [id number] Sodium Chloride 0.9% 1, 80 000 ml @ 10 mls/hr IV . Q24H [facility] Rx#:[id number] Oral 0 Output: Urine 1000 600 Other: Voiding Method Urinal Urinal Urinal - Exam PHYSICAL EXAMINATION: GENERAL: The patient is alert and oriented x3, not in any acute distress. Well developed, well nourished. HEENT: Pupils are round and equally reacting to light. EOMI. No scleral icterus. No conjunctival pallor. Normocephalic, atraumatic. No pharyngeal erythema. No thyromegaly. CARDIOVASCULAR: S1 and S2 present. No murmurs, rubs, or gallops. PULMONARY: Wheezing significantly improved mildly decreased air entry into bilateral lung garcia ABDOMEN: Soft, nontender, nondistended, normoactive bowel sounds. No palpable organomegaly. MUSCULOSKELETAL: No joint swelling or deformity. EXTREMITIES: No cyanosis, clubbing, or pedal edema. NEUROLOGICAL: Gross neurological examination did not reveal any focal deficits. SKIN: No rashes. - Labs CBC & Chem 7: 07/26/19 04:21 07/27/19 10:29 Labs: Abnormal Lab Results - Last 24 Hours (Table) 07/26/19 07/27/19 07/27/19 Range/Units 04:21 06:25 10:29 Chloride 109 H (98-107) mmol/L Carbon Dioxide 18 L (22-30) mmol/L BUN 46 H (9-20) mg/dL Creatinine 2.47 H (0.66-1.25) mg/dL POC Glucose (mg/dL) 152 H (75-99) mg/dL Iron 16 L (65-175) ug/dL % Saturation 6.45 L (15.00-50.00) Microbiology - Last 24 Hours (Table) 07/24/19 20:10 Blood Culture - Preliminary Blood No Growth after 48 hours 07/24/19 17:31 Blood Culture - Preliminary Blood No Growth after 48 hours Assessment and Plan Plan: -Acute hypoxic and possible hypercapnic respiratory failure acute influenza patient may have bronchospasm severe from influenza is receiving breathing treatments pulmonary is following the patient continue with the respiratory support your patient does have a competent of heart failure patient appears to have systolic dysfunction with acute exacerbation patient will be continued on oral Lasix and gentle diuresis as patient has borderline blood pressure and was septic on admission with lactic acidosis. -Lactic acidosis secondary to sepsis on admission which is again secondary to influenza infection which is improving although her left lower lobe pneumonia cannot be ruled out because of which patient and antibiotics for pneumonia postinfluenzal pneumonia cannot be ruled out - congestive heart failure EF 35% chronic systolic dysfunction with acute exacerbation is not known at appears to be in acute exacerbation IV fluids were discontinued patient blood pressures fairly okay now earlier and yesterday cyndi brian blood pressure was low with lactic acidosis -Severe pulmonary hypertension and an moderate to severe aortic stenosis Noniron gap metabolic acidosis for which the patient is on oral bicarbonate s upplementation nephrology evaluated the patient -History of Medina's palsy with residual weakness on the right side of the face -History of proximal atrial fibrillation not on anticoagulation patient is presently rate controlled patient has a pacer and AICD -Hypertension -Hyperlipidemia -Hypothyroidism -Coronary artery disease -Sleep apnea uses CPAP machine at home -DVT prophylaxis with subcutaneous heparin
[2019-07-27 11:38] LABS: Glucose,Whole Blood 128 mg/dL (75-99)
[2019-07-27] MEDS: FINASTERIDE 5 MG TAB PO SCH (12:21)
[2019-07-27] MEDS: ATORVASTATIN 20 MG TAB PO SCH (12:21)
[2019-07-27] MEDS: POTASSIUM CHLORIDE ER 10 MEQ TAB.ER.PRT PO SCH (12:21)
[2019-07-27] MEDS: ASCORBIC ACID 500 MG TAB PO SCH (12:21)
--- NOTE | 2019-07-27 12:29 | PN ---
PROGRESS NOTE Patient is seen for followup for acute kidney injury. He was admitted to the hospital with shortness of breath and is found to have influenza A. Overall, patient states he is feeling better. His renal function is slightly improved with creatinine down from 2.7 to 2.47 on initial admission it was all the way up to 3.23. The patient states he has been voiding well. Oral intake is fair. He is currently maintained on oral Lasix. His blood pressure is fairly controlled, although occasionally on the lower side, especially on initial admission. PHYSICAL EXAMINATION: On examination today, blood pressure was 137/75, heart rate 104 per minute, he is afebrile. Examination of the heart S1, S2. Examination of the lungs, bilateral breath sounds are heard, decreased breath sounds at the bases. Abdomen is Soft, non-tender. Examination of the lower extremities shows edema trace bilaterally. [employer] exam grossly intact. LABS: Show sodium 141, potassium 3.7, chloride 109, CO2 is 18, BUN 46, creatinine 2.47. ASSESSMENT: 1. Chronic kidney disease. 2. 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 Previous creatinine about 1.3-1.2 mg/dL. 3. Metabolic acidosis, associated with acute kidney injury, currently improving. 4. Influenza A. PLAN: Continue with oral sodium bicarb. Continue current dose of p.o. Lasix. Repeat labs in a.m. Avoid nephrotoxic agents. If blood pressure is elevated, patient can continue with the angiotensin receptor blockers. However, I do see that it has been on the lower side. Therefore it is okay to hold it for now. MMODL / IJN: [id number] /
--- NOTE | 2019-07-27 12:29 | P.PN ---
Subjective Progress Note Date: 07/27/19 6 is an 84-year-old gentleman with past medical history significant for persistent atrial fibrillation, peripheral vascular disease, hypertension, hyperlipidemia, chronic kidney disease, who presented to the hospital initially with symptoms of shortness of breath. Patient was positive for influenza, all his breathing has improved. His blood pressure was on the lower side yesterday, today 136/70 with a heart rate in the 70s to 90s, 99% on 5 L of oxygen. Sodium 141, potassium 3.7, BUN 46, creatinine 2.4. Objective - Vital Signs Vital signs: Vital Signs Temp 97.3 F L 07/27/19 08:45 Pulse 72 07/27/19 11:56 Resp 18 07/27/19 08:45 BP 137/75 07/27/19 08:45 Pulse Ox 99 07/27/19 08:45 Intake & Output 07/26/19 07/27/19 07/27/19 18:59 06:59 18:59 Intake Total 320 10 350 Output Total 1000 600 Balance -680 -590 350 Weight 92.8 kg Intake: IV 220 10 .9 220 10 Intake, IV Titration 100 230 Amount Levofloxacin 750Mg-D5w 150 Pmx 750 mg In Dextrose/ Water 1 150ml.bag @ 100 mls/hr IVPB Q48H [facility] Rx#: [id number] Piperacillin-Tazobactam 3 100 .375 gm In Sodium Chloride 0.9% 100 ml @ 25 mls/hr IVPB Q8H [facility] Rx#: [id number] Sodium Chloride 0.9% 1, 80 000 ml @ 10 mls/hr IV . Q24H [facility] Rx#:[id number] Oral 120 Output: Urine 1000 600 Other: Voiding Method Urinal Urinal Urinal # Voids 0 # Bowel Movements 0 - Exam Gen. appearance, comfortable and interactive and following commands and answering questions currently on 6 L of oxygen by nasal cannula Head exam was generally normal. There was no scleral icterus or corneal arcus. Mucous membranes were moist. Neck was supple and without jugular venous distension, thyromegaly, or carotid bruits. Carotids were easily palpable bilaterally. There was no adenopathy. Lungs sounds are diminished bilaterally along with some few crackles in lung bases and scattered expiratory wheezes Heart sounds are distant, positive S1-S2, irregular, paced with a pacemaker pocket seen over the left anterior chest area. Sternum stable clean and intact. No use of accessory muscles of breathing at this point in time. No significant murmurs appreciated. Abdominal exam revealed normal bowel sounds. The abdomen was soft, non-tender, and without masses, organomegaly, or appreciable enlargement of the abdominal aorta. Examination of the extremities revealed easily palpable radial, femoral and pedal pulses. There was no cyanosis, clubbing or edema. Examination of the skin revealed no evidence of significant rashes, suspicious appearing nevi or other concerning lesions. Neurologically awake and alert and is no focal neurological deficits. - Labs CBC & Chem 7: 07/26/19 04:21 07/27/19 10:29 Labs: Abnormal Lab Results - Last 24 Hours (Table) 07/26/19 07/27/19 07/27/19 Range/Units 04:21 06:25 10:29 Chloride 109 H (98-107) mmol/L Carbon Dioxide 18 L (22-30) mmol/L BUN 46 H (9-20) mg/dL Creatinine 2.47 H (0.66-1.25) mg/dL POC Glucose (mg/dL) 152 H (75-99) mg/dL Iron 16 L (65-175) ug/dL % Saturation 6.45 L (15.00-50.00) 07/27/19 Range/Units 11:35 Chloride (98-107) mmol/L Carbon Dioxide (22-30) mmol/L BUN (9-20) mg/dL Creatinine (0.66-1.25) mg/dL POC Glucose (mg/dL) 128 H (75-99) mg/dL Iron (65-175) ug/dL % Saturation (15.00-50.00) Microbiology - Last 24 Hours (Table) 07/24/19 20:10 Blood Culture - Preliminary Blood No Growth after 48 hours 07/24/19 17:31 Blood Culture - Preliminary Blood No Growth after 48 hours Assessment and Plan Plan: Assessment and plan #1 generalized weakness and fatigue #2 shortness of breath likely to be multifactorial #3 positive acute influenza #4 long-standing persistent atrial fibrillation with controlled heart rate #5 marginal low blood pressure, improved today #6 acute on chronic renal failure #7 severe aortic stenosis #8 obstructive sleep apnea #9 hyperlipidemia #10 history of bladder cancer #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 We'll follow him along with you now on an as-needed basis bases only, please don't hesitate to call with any questions. DNP note has been reviewed, I agree with a documented findings and plan of care. Patient was seen and examined.
--- NOTE | 2019-07-27 12:48 | P.PN ---
Subjective Progress Note Date: 07/27/19 On O2 2019 patient seen in follow-up on selective care unit, he states he is feeling stronger, he was able to ambulate around his room with a walker independently, and tolerated activity well, breathing is comfortable, FiO2 is down to 5 L and his pulse ox is 99%, did not require BiPAP support last night, lung sounds reveal diffuse crackles bilaterally, no significant wheezing, his cough is nonproductive, his been afebrile, remains on examination of Zosyn and Tamiflu. Yesterday chest x-ray showed the vessel congestion and mild interstitial changes and patient did receive a dose of IV Lasix per cardiology yesterday, today's labs have been reviewed, showing sodium of 141, potassium is 3.7, chloride is 109, CO2 is 18, BUN of 46 and creatinine is 2.47, patient remains on oral bicarbonate, his oral intake is improving, appetite is improving, no nausea vomiting or diarrhea. Objective - Vital Signs Vital signs: Vital Signs Temp 97.3 F L 07/27/19 08:45 Pulse 72 07/27/19 11:56 Resp 18 07/27/19 08:45 BP 137/75 07/27/19 08:45 Pulse Ox 99 07/27/19 08:45 Intake & Output 07/26/19 07/27/19 07/27/19 18:59 06:59 18:59 Intake Total 320 10 350 Output Total 1000 600 Balance -680 -590 350 Weight 92.8 kg Intake: IV 220 10 .9 220 10 Intake, IV Titration 100 230 Amount Levofloxacin 750Mg-D5w 150 Pmx 750 mg In Dextrose/ Water 1 150ml.bag @ 100 mls/hr IVPB Q48H [facility] Rx#: [id number] Piperacillin-Tazobactam 3 100 .375 gm In Sodium Chloride 0.9% 100 ml @ 25 mls/hr IVPB Q8H [facility] Rx#: [id number] Sodium Chloride 0.9% 1, 80 000 ml @ 10 mls/hr IV . Q24H [facility] Rx#:[id number] Oral 120 Output: Urine 1000 600 Other: Voiding Method Urinal Urinal Urinal # Voids 0 # Bowel Movements 0 - Exam GENERAL EXAM: Alert, very pleasant, 84-year-old white male, on 5 L of oxygen with a pulse ox of 99% comfortable in no apparent distress. HEAD: Normocephalic/atraumatic. EYES: Normal reaction of pupils, equal size. Conjunctiva pink, sclera white. NOSE: Clear with pink turbinates. THROAT: No erythema or exudates. NECK: No masses, no JVD, no thyroid enlargement, no adenopathy. CHEST: No chest wall deformity. Symmetrical expansion. LUNGS: Equal air entry with diffuse crackles bilaterally, no wheeze, rhonchi or dullness. CVS: Iregular rate and rhythm, normal S1 and S2, no gallops, no murmurs, no rubs ABDOMEN: Soft, nontender. No hepatosplenomegaly, normal bowel sounds, no guarding or rigidity. EXTREMITIES: No clubbing, no edema, no cyanosis, 2+ pulses and upper and lower extremities. MUSCULOSKELETAL: Muscle strength and tone normal. SPINE: No scoliosis or deformity SKIN: No rashes CENTRAL NERVOUS SYSTEM: Alert and oriented -3. No focal deficits, tone is normal in all 4 extremities. PSYCHIATRIC: Alert and oriented -3. Appropriate affect. Intact judgment and insight. - Labs CBC & Chem 7: 07/26/19 04:21 07/27/19 10:29 Labs: Abnormal Lab Results - Last 24 Hours (Table) 07/26/19 07/27/19 07/27/19 Range/Units 04:21 06:25 10:29 Chloride 109 H (98-107) mmol/L Carbon Dioxide 18 L (22-30) mmol/L BUN 46 H (9-20) mg/dL Creatinine 2.47 H (0.66-1.25) mg/dL POC Glucose (mg/dL) 152 H (75-99) mg/dL Iron 16 L (65-175) ug/dL % Saturation 6.45 L (15.00-50.00) 07/27/19 Range/Units 11:35 Chloride (98-107) mmol/L Carbon Dioxide (22-30) mmol/L BUN (9-20) mg/dL Creatinine (0.66-1.25) mg/dL POC Glucose (mg/dL) 128 H (75-99) mg/dL Iron (65-175) ug/dL % Saturation (15.00-50.00) Microbiology - Last 24 Hours (Table) 07/24/19 20:10 Blood Culture - Preliminary Blood No Growth after 48 hours 07/24/19 17:31 Blood Culture - Preliminary Blood No Growth after 48 hours Assessment and Plan Plan: Assessment: 1 acute influenza a pulmonary infection/influenza syndrome with generalized weakness and shortness of breath and no extra pulmonary manifestations 2 acute hypoxic respiratory failure secondary to above in addition to a component of CHF exacerbation. The possibility of left lower lobe pneumonia cannot be completely excluded. Currently off the BiPAP and the patient is on 6 L of oxygen by nasal cannula. The patient needs to be utilizing his BiPAP overnight as the patient has obstructive sleep apnea in addition. 3 acute lactic acidosis, improving to monitor the patient currently has a component of non-anion gap metabolic acidosis, and the lactic acid level is down to 1.4. 4 acute on chronic kidney injury. The patient has baseline chronic stage III kidney failure and the creatinine is improving and started on to 2.7. The patie nt also has a component of non-anion gap metabolic acidosis started on oral bicarbonate 5 coronary artery disease, with abnormal troponins. Consider troponin leak. The EKG showing a paced rhythm at the rate of 53. 6 severe aortic stenosis, severe pulmonary hypertension with an LV function mildly impaired with an ejection fraction of 40-45% 7 obstructive sleep apnea maintained on CPAP therapy on outpatient basis. The patient currently is on a CPAP machine and I evaluated him back in November 2018 I put him on a minimum pressure of 5 and a maximum pressure of 20 with a pressure support of 3. He was quite compliant with that setting. 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 The patient has a pacer/AICD in place 19 peripheral vascular disease Plan: Continue antibiotics, continue Tamiflu, Zosyn, patient has been afebrile, FiO2 is down to 5 L, did not require BiPAP support last night, continue weaning FiO2, continue oral Lasix, patient is maintaining negative fluid balance. Continue nebulized bronchodilators, increase activity as tolerated. Will obtain follow- up chest x-ray tomorrow we'll continue to follow I performed a history & physical examination of the patient and discussed their management with my nurse practitioner, Edwina Pedroza. I reviewed the nurse practitioner's note and agree with the documented findings and plan of care. Lung sounds are positive for diffuse bilateral crackles. The findings and the impression was discussed with the patient. I attest to the documentation by the nurse practitioner. Time with Patient: Less than 30
[2019-07-27 16:39] LABS: Glucose,Whole Blood 284 mg/dL (75-99)
[2019-07-27 20:30] LABS: Glucose,Whole Blood 312 mg/dL (75-99)
[2019-07-27] MEDS: EZETIMIBE 10 MG TAB PO SCH (21:26)
[2019-07-28 06:07] LABS: Glucose,Whole Blood 191 mg/dL (75-99)
[2019-07-28 06:40] LABS: Calcium 8.2 mg/dL (8.4-10.2); Potassium 3.9 mmol/L (3.5-5.1)
[2019-07-28] MEDS: GLIMEPIRIDE 1 MG TAB PO SCH (06:46)
[2019-07-28] MEDS: LEVOTHYROXINE 125 MCG TAB PO SCH (06:46)
[2019-07-28] MEDS: SODIUM CHLORIDE 0.9% 1,000 ML IV SCH ×2 (06:47→20:58)
[2019-07-28] MEDS: IPRATROPIUM-ALBUTEROL 3 ML NEB INHALATION SCH ×4 (08:07→19:24)
--- NOTE | 2019-07-28 08:16 | XR ---
EXAMINATION TYPE: XR chest 2V DATE OF EXAM: 07/28/2019 COMPARISON: Prior chest x-ray 07/26/2019 HISTORY: Shortness of breath TECHNIQUE: Frontal and lateral views of the chest are obtained. FINDINGS: There is improved aeration as compared to prior exam. Persistent blunting of the costophre zahida angles noted. No evident pneumothorax. Intracardiac defibrillator leads are again noted. Aorta is dense. IMPRESSION: Improvement in aeration, volume status. Basilar effusions. Cardiomegaly.
[2019-07-28] MEDS: METOPROLOL SUCCINATE (ER) 25 MG TAB.ER.24H PO SCH (08:27)
[2019-07-28] MEDS: FUROSEMIDE 40 MG TAB PO SCH (08:27)
[2019-07-28] MEDS: SODIUM BICARBONATE TAB 650 MG TAB PO SCH ×2 (08:27→20:57)
[2019-07-28] MEDS: AMIODARONE 200 MG TAB PO SCH (08:27)
[2019-07-28] MEDS: OSELTAMIVIR 60 MG/10 ML ORAL SYRINGE PO SCH (08:28)
[2019-07-28] MEDS: methylPREDNISolone SOD SUCCI 40 MG/ML 1 ML VIAL IV SCH ×2 (08:28→20:57)
[2019-07-28] MEDS: HEPARIN SODIUM,PORCINE 5,000 UNIT/ML 1 ML VIAL SQ SCH ×2 (08:28→20:57)
[2019-07-28] MEDS: PIPERACILLIN-TAZOBACTAM 3.375 GM in SODIUM CHLORIDE 0.9% 100 ML IVPB SCH ×2 (08:29→17:34)
[2019-07-28] MEDS: FINASTERIDE 5 MG TAB PO SCH (11:25)
[2019-07-28] MEDS: ASCORBIC ACID 500 MG TAB PO SCH (11:25)
[2019-07-28] MEDS: ATORVASTATIN 20 MG TAB PO SCH (11:25)
[2019-07-28] MEDS: POTASSIUM CHLORIDE ER 10 MEQ TAB.ER.PRT PO SCH (11:25)
[2019-07-28 12:12] LABS: Glucose,Whole Blood 168 mg/dL (75-99)
[2019-07-28] MEDS: INSULIN ASPART (NovoLOG) 100 UNIT/ML VIAL SQ SCH ×3 (12:36→20:58)
--- NOTE | 2019-07-28 14:27 | P.PN ---
Subjective Progress Note Date: 07/28/19 Principal diagnosis: 83-year-old male with complains of shortness of breath generalized weakness and fever found to have influenza, patient denied any COPD history patient denied a ny history of smoking. But patient is wheezing on exam patient is presently on BiPAP admitted to ICU pulmonology and cardio evaluated the patient. Patient chest x-ray now showing pulmonary edema, there is infiltrate in the left lower lung garcia small bilateral pleural effusions. Patient had lactic is doses on admission which resolved at this time patient that it might pulmonary edema which is much worse now after IV fluids. Patient does have history of atrial fibrillation, unsure whether patient has history of congestive heart failure do not have any echocardiogram available. BNP is a 9890. Patient is rate controlled. 07/26/2019 Patient is in aspirin logs in today BiPAP was discontinued and patient is still having expiratory wheezing creatinine has gone down to 2.7 patient is non-anion gap metabolic acidosis secondary to acute renal failure for which patient on oral bicarbonate patient was resumed on lisinopril. 07/27/2019 patient is feeling much better today patient is not wheezing today creatinine continue to improve and is around 2.47 today. Losartan will be held until his kidney function returns to his baseline Constitutional: Denied any fatigue denied any fever. Cardio vascular: denied any chest pain, palpitations Gastrointestinal denied any nausea vomiting Pulmonary: Significant improvement in shortness of breath Neurologic denied any new focal deficits All inpatient medications were reviewed and appropriate changes in these medications as dictated in the interval history and assessment and plan. 07/28/2019 Patient is seen and evaluated today sitting up in the chair and appears to be in no acute distress. Currently remains on 5 L of oxygen via nasal cannula although does not normally wear oxygen at home. Patient continues with CPAP at night and awaiting for a replacement from [facility] is his current CPAP is having some issues. Patient continues to have wheezing today with some slight improvement and has been getting up and walking in the room. Creatinine slowly trending down and is currently 2.12 today. Objective - Vital Signs Vital signs: Vital Signs Temp 98.5 F 07/28/19 11:47 Pulse 78 07/28/19 12:15 Resp 20 07/28/19 11:47 BP 141/79 07/28/19 11:47 Pulse Ox 96 07/28/19 11:47 Intake & Output 07/27/19 07/28/19 07/28/19 18:59 06:59 18:59 Intake Total 570 240 Output Total 847 765 4769 Balance -280 -300 -760 Weight 94 kg Intake: IV 100 .9 100 Intake, IV Titration 230 Amount Levofloxacin 750Mg-D5w 150 Pmx 750 mg In Dextrose/ Water 1 150ml.bag @ 100 mls/hr IVPB Q48H [facility] Rx#: [id number] Sodium Chloride 0.9% 1, 80 000 ml @ 10 mls/hr IV . Q24H [facility] Rx#:[id number] Oral 240 240 Output: Urine 400 187 1875 Stool 0 Other: Voiding Method Urinal Urinal Urinal # Voids 0 2 0 # Bowel Movements 0 0 - Exam GENERAL: The patient is alert and oriented x3, not in any acute distress. Well developed, well nourished. HEENT: Pupils are round and equally reacting to light. EOMI. No scleral icterus. No conjunctival pallor. Normocephalic, atraumatic. No pharyngeal erythema. No thyromegaly. CARDIOVASCULAR: S1 and S2 present. No murmurs, rubs, or gallops. PULMONARY: Continued expiratory Wheezing although significantly improved. mildly decreased air entry into bilateral lung garcia ABDOMEN: Soft, nontender, nondistended, normoactive bowel sounds. No palpable organomegaly. MUSCULOSKELETAL: No joint swelling or deformity. EXTREMITIES: No cyanosis, clubbing, or pedal edema. NEUROLOGICAL: Gross neurological examination did not reveal any focal deficits. SKIN: No rashes. - Labs CBC & Chem 7: 07/26/19 04:21 07/28/19 05:29 Labs: Abnormal Lab Results - Last 24 Hours (Table) 07/27/19 07/27/19 07/28/19 Range/Units 16:37 20:29 05:29 Chloride 109 H (98-107) mmol/L Carbon Dioxide 18 L (22-30) mmol/L BUN 48 H (9-20) mg/dL Creatinine 2.12 H (0.66-1.25) mg/dL Glucose 173 H (74-99) mg/dL POC Glucose (mg/dL) 284 H 312 H (75-99) mg/dL Calcium 8.2 L (8.4-10.2) mg/dL 07/28/19 07/28/19 Range/Units 06:06 12:10 Chloride (98-107) mmol/L Carbon Dioxide (22-30) mmol/L BUN (9-20) mg/dL Creatinine (0.66-1.25) mg/dL Glucose (74-99) mg/dL POC Glucose (mg/dL) 191 H 168 H (75-99) mg/dL Calcium (8.4-10.2) mg/dL Microbiology - Last 24 Hours (Table) 07/24/19 20:10 Blood Culture - Preliminary Blood No Growth after 72 hours 07/24/19 17:31 Blood Culture - Preliminary Blood No Growth after 72 hours Assessment and Plan Assessment: -Acute hypoxic and possible hypercapnic respiratory failure acute influenza pat ient may have bronchospasm severe from influenza is receiving breathing treatments. pulmonary is following the patient. Patient is off of the BiPAP and currently maintaining oxygen saturations above 95% on 5 L via nasal cannula. Patient does have a component of heart failure patient appears to have systolic dysfunction with acute exacerbation patient will be continued on oral Lasix and gentle diuresis as patient has borderline blood pressure and was septic on admission with lactic acidosis. Will attempt to wean oxygen requirements down and may possibly require oxygen upon discharge in the outpatient setting. Will get home 02 eval -Lactic acidosis secondary to sepsis on admission which is again secondary to influenza infection which is improving although her left lower lobe pneumonia c annot be ruled out because of which patient and antibiotics for pneumonia post- influenzal pneumonia cannot be ruled out -congestive heart failure EF 35% chronic systolic dysfunction with acute exacerb ation, appears to be in acute exacerbation. Patient is maintained on oral Lasix -Severe pulmonary hypertension and has moderate to severe aortic stenosis -Non-anion gap metabolic acidosis for which the patient is on oral bicarbonate supplementation nephrology evaluated the patient -History of Medina's palsy with residual weakness on the right side of the face -History of paroxysmal atrial fibrillation not on anticoagulation patient is presently rate controlled patient has a pacer and AICD -Hypertension -Hyperlipidemia -Hypothyroidism -Coronary artery disease -Sleep apnea uses CPAP machine at home -DVT prophylaxis with subcutaneous heparin
--- NOTE | 2019-07-28 14:40 | P.PN ---
Subjective Progress Note Date: 07/28/19 On O2 2019 patient seen in follow-up on selective care unit, he states he is feeling stronger, he was able to ambulate around his room with a walker independently, and tolerated activity well, breathing is comfortable, FiO2 is down to 5 L and his pulse ox is 99%, did not require BiPAP support last night, lung sounds reveal diffuse crackles bilaterally, no significant wheezing, his cough is nonproductive, his been afebrile, remains on examination of Zosyn and Tamiflu. Yesterday chest x-ray showed the vessel congestion and mild interstitial changes and patient did receive a dose of IV Lasix per cardiology yesterday, today's labs have been reviewed, showing sodium of 141, potassium is 3.7, chloride is 109, CO2 is 18, BUN of 46 and creatinine is 2.47, patient remains on oral bicarbonate, his oral intake is improving, appetite is improving, no nausea vomiting or diarrhea. On O2 2019 patient seen in follow-up on selective care unit, and he is feeling better today, breathing easier, he continues on oral Lasix, is maintaining negative fluid balance, FiO2 down to 4 L and his pulse ox is 96%, afebrile, cultures have been negative, today's labs have been reviewed, and patient's renal profile continues to improve, with B1 and 48 and creatinine of 2.12. Patient remains on IV steroids, Zosyn, Levaquin and Tamiflu. Vital signs are stable, patient is ambulating in the room out any activity well, a splenic is in progress for possibility of discharge home possibly tomorrow Objective - Vital Signs Vital signs: Vital Signs Temp 98.5 F 07/28/19 11:47 Pulse 78 07/28/19 12:15 Resp 20 07/28/19 11:47 BP 141/79 07/28/19 11:47 Pulse Ox 96 07/28/19 13:50 Intake & Output 07/27/19 07/28/19 07/28/19 18:59 06:59 18:59 Intake Total 570 240 Output Total 924 589 7134 Balance -280 -300 -760 Weight 94 kg Intake: IV 100 .9 100 Intake, IV Titration 230 Amount Levofloxacin 750Mg-D5w 150 Pmx 750 mg In Dextrose/ Water 1 150ml.bag @ 100 mls/hr IVPB Q48H HAL Rx#: [id number] Sodium Chloride 0.9% 1, 80 000 ml @ 10 mls/hr IV . Q24H HAL Rx#:[id number] Oral 240 240 Output: Urine 333 362 8642 Stool 0 Other: Voiding Method Urinal Urinal Urinal # Voids 0 2 0 # Bowel Movements 0 0 - Exam GENERAL EXAM: Alert, very pleasant, 84-year-old white male, on 4 L of oxygen with a pulse ox of 96% comfortable in no apparent distress. HEAD: Normocephalic/atraumatic. EYES: Normal reaction of pupils, equal size. Conjunctiva pink, sclera white. NOSE: Clear with pink turbinates. THROAT: No erythema or exudates. NECK: No masses, no JVD, no thyroid enlargement, no adenopathy. CHEST: No chest wall deformity. Symmetrical expansion. LUNGS: Equal air entry with diffuse crackles bilaterally, no wheeze, rhonchi or dullness. CVS: Iregular rate and rhythm, normal S1 and S2, no gallops, no murmurs, no rubs ABDOMEN: Soft, nontender. No hepatosplenomegaly, normal bowel sounds, no guarding or rigidity. EXTREMITIES: No clubbing, no edema, no cyanosis, 2+ pulses and upper and lower extremities. MUSCULOSKELETAL: Muscle strength and tone normal. SPINE: No scoliosis or deformity SKIN: No rashes CENTRAL NERVOUS SYSTEM: Alert and oriented -3. No focal deficits, tone is normal in all 4 extremities. PSYCHIATRIC: Alert and oriented -3. Appropriate affect. Intact judgment and insight. - Labs CBC & Chem 7: 07/26/19 04:21 07/28/19 05:29 Labs: Abnormal Lab Results - Last 24 Hours (Table) 07/27/19 07/27/19 07/28/19 Range/Units 16:37 20:29 05:29 Chloride 109 H (98-107) mmol/L Carbon Dioxide 18 L (22-30) mmol/L BUN 48 H (9-20) mg/dL Creatinine 2.12 H (0.66-1.25) mg/dL Glucose 173 H (74-99) mg/dL POC Glucose (mg/dL) 284 H 312 H (75-99) mg/dL Calcium 8.2 L (8.4-10.2) mg/dL 07/28/19 07/28/19 Range/Units 06:06 12:10 Chloride (98-107) mmol/L Carbon Dioxide (22-30) mmol/L BUN (9-20) mg/dL Creatinine (0.66-1.25) mg/dL Glucose (74-99) mg/dL POC Glucose (mg/dL) 191 H 168 H (75-99) mg/dL Calcium (8.4-10.2) mg/dL Microbiology - Last 24 Hours (Table) 07/24/19 20:10 Blood Culture - Preliminary Blood No Growth after 72 hours 07/24/19 17:31 Blood Culture - Preliminary Blood No Growth after 72 hours Assessment and Plan Plan: Assessment: 1 acute influenza a pulmonary infection/influenza syndrome with generalized weakness and shortness of breath and no extra pulmonary manifestations 2 acute hypoxic respiratory failure secondary to above in addition to a component of CHF exacerbation. The possibility of left lower lobe pneumonia cannot be completely excluded. Currently off the BiPAP and the patient is on 6 L of oxygen by nasal cannula. The patient needs to be utilizing his BiPAP overnight as the patient has obstructive sleep apnea in addition. 3 acute lactic acidosis, improving to monitor the patient currently has a component of non-anion gap metabolic acidosis, and the lactic acid level is down to 1.4. 4 acute on chronic kidney injury. The patient has baseline chronic stage III kidney failure and the creatinine is improving and started on to 2.7. The pat ient also has a component of non-anion gap metabolic acidosis started on oral bicarbonate 5 coronary artery disease, with abnormal troponins. Consider troponin leak. The EKG showing a paced rhythm at the rate of 53. 6 severe aortic stenosis, severe pulmonary hypertension with an LV function mild ly impaired with an ejection fraction of 40-45% 7 obstructive sleep apnea maintained on CPAP therapy on outpatient basis. The patient currently is on a CPAP machine and I evaluated him back in November 2018 I put him on a minimum pressure of 5 and a maximum pressure of 20 with a pressure support of 3. He was quite compliant with that setting. 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 The patient has a pacer/AICD in place 19 peripheral vascular disease Plan: Today chest x-ray has been reviewed showing improvement in aeration and volume status, patient is maintaining negative fluid balance, continues on oral Lasix and 60 mg, today's labs have been reviewed showing further improvement in pat ient's renal profile, FiO2 is down to 4 L, continue to wean, increase activity as tolerated, no fever or chills, no worsening dyspnea, from pulmonary perspective patient is stable for discharge in next 24 hours, on oral Levaquin and he can finish his course of Tamiflu, he will need outpatient follow-up in the office with Dr. Burns in the 7-10 days. I performed a history & physical examination of the patient and discussed their management with my nurse practitioner, Edwina Pedroza. I reviewed the nurse practitioner's note and agree with the documented findings and plan of care. Lung sounds are positive for diffuse bilateral crackles. The findings and the impression was discussed with the patient. I attest to the documentation by the nurse practitioner. Time with Patient: Less than 30
[2019-07-28 16:56] LABS: Glucose,Whole Blood 253 mg/dL (75-99)
[2019-07-28 20:14] LABS: Glucose,Whole Blood 244 mg/dL (75-99)
[2019-07-28] MEDS ORDERED: LEVOFLOXACIN 750 MG TAB PO SCH (21:00)
--- NOTE | 2019-07-28 21:05 | PN ---
PROGRESS NOTE Patient is seen for followup for acute kidney injury on top of chronic kidney disease. Patient is being treated for influenza and mild volume overload. He is maintained on oral Lasix, currently doing well. Renal function continues to improve. Serum creatinine is down to 2.1 from 3.2 on initial admission. On examination today, blood pressure was 139/71, heart rate of 72 per minute. Patient is afebrile. EXAMINATION OF THE HEART: S1 and S2. EXAMINATION OF LUNGS: Bilateral breath sounds are heard. ABDOMEN: Soft, non-tender. Examination of lower extremities shows no significant edema. SENIOR HEALTH EDUCATOR exam is grossly intact. Labs show sodium 138, potassium 3.9, chloride 109. CO2 is 18, BUN 48, creatinine 2.1 mg/dL. ASSESSMENT: 1. Acute kidney injury secondary to underlying influenza, currently improving. Continue with current dose of Lasix. 2. Influenza A, maintained on Tamiflu. 3. Metabolic acidosis associated with renal failure, now improved. 4. Chronic kidney disease, stage III, secondary to nephrosclerosis. Previous creatinine 1.3 to 1.2 mg/dL. 5. Acute hypoxic respiratory failure secondary to influenza and congestive heart failure, now improved significantly. 6. Cardiomyopathy, ejection fraction 40% to 45%. 7. Coronary artery disease with mildly elevated troponins. 8. Chronic atrial fibrillation, maintained on anticoagulation. PLAN: Continue current dose of Lasix. Encourage increased oral intake. Follow up as outpatient for CKD. MMODL / IJN: [id number] /
[2019-07-29] MEDS: PIPERACILLIN-TAZOBACTAM 3.375 GM in SODIUM CHLORIDE 0.9% 100 ML IVPB SCH ×2 (01:22→08:24)
[2019-07-29] MEDS: EZETIMIBE 10 MG TAB PO SCH (01:22)
[2019-07-29 01:30] VITALS: RESP 16
[2019-07-29 06:04] LABS: Glucose,Whole Blood 153 mg/dL (75-99)
[2019-07-29] MEDS: GLIMEPIRIDE 1 MG TAB PO SCH (06:29)
[2019-07-29] MEDS: LEVOTHYROXINE 125 MCG TAB PO SCH (06:35)
[2019-07-29] MEDS: INSULIN ASPART (NovoLOG) 100 UNIT/ML VIAL SQ SCH ×2 (07:06→12:05)
[2019-07-29] MEDS: AMIODARONE 200 MG TAB PO SCH (08:25)
[2019-07-29] MEDS: SODIUM BICARBONATE TAB 650 MG TAB PO SCH (08:25)
[2019-07-29] MEDS: ERGOCALCIFEROL 50,000 UNIT CAP PO SCH (08:25)
[2019-07-29] MEDS: HEPARIN SODIUM,PORCINE 5,000 UNIT/ML 1 ML VIAL SQ SCH (08:25)
[2019-07-29] MEDS: METOPROLOL SUCCINATE (ER) 25 MG TAB.ER.24H PO SCH (08:25)
[2019-07-29] MEDS: FUROSEMIDE 40 MG TAB PO SCH (08:26)
[2019-07-29] MEDS: OSELTAMIVIR 60 MG/10 ML ORAL SYRINGE PO SCH (08:29)
[2019-07-29] MEDS: methylPREDNISolone SOD SUCCI 40 MG/ML 1 ML VIAL IV SCH (08:31)
[2019-07-29] MEDS: IPRATROPIUM-ALBUTEROL 3 ML NEB INHALATION SCH ×3 (08:44→16:46)
[2019-07-29 11:40] LABS: Glucose,Whole Blood 163 mg/dL (75-99)
--- NOTE | 2019-07-29 11:46 | PN ---
PROGRESS NOTE Patient is seen for followup for chronic kidney disease and acute kidney injury. He is admitted for influenza, currently significantly improved. PHYSICAL EXAMINATION: On examination, blood pressure was 134/55, heart rate 59 per minute, patient is afebrile. Examination of the heart S1, S2. Examination of the lungs, bilateral breath sounds are heard. Abdomen is soft, nontender. Examination of the lower extremities shows chronic skin changes. No significant edema is noted. LABS: Labs are not available from today. ASSESSMENT: 1. Chronic kidney disease secondary to nephrosclerosis, NKF stage III, baseline creatinine 1.3-1.2 mg/dL. 2. Acute kidney injury secondary to influenza, improving. Continue current dose of IV Lasix. 3. Acute hypoxic respiratory failure on initial admission, currently improved secondary to CHF and influenza. 4. Cardiomyopathy, ejection fraction 40% to 45%. 5. Metabolic acidosis associated with renal failure, now improved. 6. Influenza A maintained on Tamiflu. 7. Chronic atrial fibrillation, currently on anticoagulation, rate is controlled. PLAN: Continue current dose of oral Lasix. Patient is stable for discharge from nephrology standpoint. Follow up as outpatient in 1-2 weeks for CKD. MMODL / IJN: [id number] /
[2019-07-29] MEDS: POTASSIUM CHLORIDE ER 10 MEQ TAB.ER.PRT PO SCH (12:04)
[2019-07-29] MEDS: ATORVASTATIN 20 MG TAB PO SCH (12:04)
[2019-07-29] MEDS: ASCORBIC ACID 500 MG TAB PO SCH (12:04)
[2019-07-29] MEDS: FINASTERIDE 5 MG TAB PO SCH (12:05)
[2019-07-29 12:22] VITALS: BP 136/87; TEMP 98.1
--- NOTE | 2019-07-29 12:23 | P.PN ---
Subjective Progress Note Date: 07/29/19 On O2 2019 patient seen in follow-up on selective care unit, he states he is feeling stronger, he was able to ambulate around his room with a walker independently, and tolerated activity well, breathing is comfortable, FiO2 is down to 5 L and his pulse ox is 99%, did not require BiPAP support last night, lung sounds reveal diffuse crackles bilaterally, no significant wheezing, his cough is nonproductive, his been afebrile, remains on examination of Zosyn and Tamiflu. Yesterday chest x-ray showed the vessel congestion and mild interstitial changes and patient did receive a dose of IV Lasix per cardiology yesterday, today's labs have been reviewed, showing sodium of 141, potassium is 3.7, chloride is 109, CO2 is 18, BUN of 46 and creatinine is 2.47, patient remains on oral bicarbonate, his oral intake is improving, appetite is improving, no nausea vomiting or diarrhea. On O2 2019 patient seen in follow-up on selective care unit, and he is feeling better today, breathing easier, he continues on oral Lasix, is maintaining negative fluid balance, FiO2 down to 4 L and his pulse ox is 96%, afebrile, cultures have been negative, today's labs have been reviewed, and patient's renal profile continues to improve, with B1 and 48 and creatinine of 2.12. Patient remains on IV steroids, Zosyn, Levaquin and Tamiflu. Vital signs are stable, patient is ambulating in the room out any activity well, a splenic is in progress for possibility of discharge home possibly tomorrow On O2 2019 patient seen in follow-up on selective care unit, today he is completely off the oxygen, room air pulse ox is 97%, he is afebrile, hemodynamically stable, his breathing has significantly improved, he is tolerating ambulation, and sounds reveal some scattered crackles, no wheezes or rhonchi. No fever or chills, blood cultures have shown no growth, his IV steroids have been tapered down to 40 mg every 12 hours, he remains on Zosyn and Levaquin, he completed a course of Tamiflu, yesterday's chest x-ray showed improvement in aeration with some persistent blunting of the costophrenic angles consistent with small bilateral pleural effusions. He remains on oral Lasix at 60 mg daily, he is maintaining negative fluid balance. Clinically improving, he is hoping to be able to go home today. Objective - Vital Signs Vital signs: Vital Signs Temp 98.4 F 07/29/19 08:38 Pulse 64 07/29/19 08:55 Resp 16 07/29/19 08:38 BP 134/55 07/29/19 08:38 Pulse Ox 97 07/29/19 08:38 Intake & Output 07/28/19 07/29/19 07/29/19 18:59 06:59 18:59 Intake Total 240 300 225 Output Total 1000 1100 650 Balance -760 -800 -425 Weight 96.3 kg Intake: Oral 240 300 225 Output: Urine 1000 1100 650 Stool 0 0 0 Other: Voiding Method Urinal Urinal Urinal # Voids 0 2 # Bowel Movements 0 0 1 - Exam GENERAL EXAM: Alert, very pleasant, 84-year-old white male, on room air with a pulse ox of 96% comfortable in no apparent distress. HEAD: Normocephalic/atraumatic. EYES: Normal reaction of pupils, equal size. Conjunctiva pink, sclera white. NOSE: Clear with pink turbinates. THROAT: No erythema or exudates. NECK: No masses, no JVD, no thyroid enlargement, no adenopathy. CHEST: No chest wall deformity. Symmetrical expansion. LUNGS: Equal air entry with diffuse crackles bilaterally, no wheeze, rhonchi or dullness. CVS: Iregular rate and rhythm, normal S1 and S2, no gallops, no murmurs, no rubs ABDOMEN: Soft, nontender. No hepatosplenomegaly, normal bowel sounds, no guarding or rigidity. EXTREMITIES: No clubbing, no edema, no cyanosis, 2+ pulses and upper and lower extremities. MUSCULOSKELETAL: Muscle strength and tone normal. SPINE: No scoliosis or deformity SKIN: No rashes CENTRAL NERVOUS SYSTEM: Alert and oriented -3. No focal deficits, tone is normal in all 4 extremities. PSYCHIATRIC: Alert and oriented -3. Appropriate affect. Intact judgment and insight. - Labs CBC & Chem 7: 07/26/19 04:21 07/28/19 05:29 Labs: Abnormal Lab Results - Last 24 Hours (Table) 07/28/19 07/28/19 07/29/19 Range/Units 16:39 20:12 06:03 POC Glucose (mg/dL) 253 H 244 H 153 H (75-99) mg/dL 07/29/19 Range/Units 11:38 POC Glucose (mg/dL) 163 H (75-99) mg/dL Microbiology - Last 24 Hours (Table) 07/24/19 20:10 Blood Culture - Preliminary Blood No Growth after 96 hours 07/24/19 17:31 Blood Culture - Preliminary Blood No Growth after 96 hours Assessment and Plan Plan: Assessment: 1 acute influenza a pulmonary infection/influenza syndrome with generalized weakness and shortness of breath and no extra pulmonary manifestations 2 acute hypoxic respiratory failure secondary to above in addition to a component of CHF exacerbation. The possibility of left lower lobe pneumonia cannot be completely excluded. Currently off the BiPAP and the patient is on 6 L of oxygen by nasal cannula. The patient needs to be utilizing his BiPAP overnight as the patient has obstructive sleep apnea in addition. 3 acute lactic acidosis, improving to monitor the patient currently has a component of non-anion gap metabolic acidosis, and the lactic acid level is down to 1.4. 4 acute on chronic kidney injury. The patient has baseline chronic stage III kidney failure and the creatinine is improving and started on to 2.7. The patient also has a component of non-anion gap metabolic acidosis started on oral bicarbonate 5 coronary artery disease, with abnormal troponins. Consider troponin leak. The EKG showing a paced rhythm at the rate of 53. 6 severe aortic stenosis, severe pulmonary hypertension with an LV function mildly impaired with an ejection fraction of 40-45% 7 obstructive sleep apnea maintained on CPAP therapy on outpatient basis. The patient currently is on a CPAP machine and I evaluated him back in November 2018 I put him on a minimum pressure of 5 and a maximum pressure of 20 with a pressure support of 3. He was quite compliant with that setting. 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 The patient has a pacer/AICD in place 19 peripheral vascular disease Plan: Patient is clinically improving, he is now on room air, maintaining stable oxygenation, no fever or chills, he completed a course of Tamiflu, he continues on Zosyn and Levaquin, acute events overnight, he remains on oral Lasix, yesterday's chest x-ray showed improvement in aeration. Tolerating abulation, no acute events overnight, anticipate discharge home today on oral course of Levaquin with outpatient follow-up with Dr. Burns in the office in 7-10 days. I performed a history & physical examination of the patient and discussed their management with my nurse practitioner, Edwina Pedroza. I reviewed the nurse practitioner's note and agree with the documented findings and plan of care. Lung sounds are positive for diffuse bilateral crackles. The findings and the impression was discussed with the patient. I attest to the documentation by the nurse practitioner. Time with Patient: Less than 30
[2019-07-29 13:13] VITALS: PULSE 64
--- NOTE | 2019-07-29 15:07 | P.DS ---
Providers Date of admission: 07/24/19 19:40 Expected date of discharge: 07/29/19 Attending physician: Ryanne Ferraro Consults: 07/24/19 19:40 Consult Physician Routine Consulting Provider: Elijah Burns Consult Reason/Comments: chf,pna Do you want consulting provider notified?: Yes Consult Physician Routine Consulting Provider: Cassie Michael Consult Reason/Comments: chf Do you want consulting provider notified?: Yes 07/25/19 15:02 Consult Physician Routine Consulting Provider: Cain Sahu Consult Reason/Comments: tamara on ckd Do you want consulting provider notified?: Yes Primary care physician: [facility] Course: Final diagnosis -Acute hypoxic and possible hypercapnic respiratory failure acute influenza patient may have bronchospasm -Lactic acidosis secondary to sepsis present on admission which is again secondary to influenza infection -congestive heart failure EF 35% chronic systolic dysfunction with acute exacerbation, appears to be in acute exacerbation -Severe pulmonary hypertension and has moderate to severe aortic stenosis -Non-anion gap metabolic acidosis -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 Grey upon discharge. Will also be following up with nephrology, cardiology, and pulmonary in the outpatient setting. Patient will continue on a short course of oral antibiotics in the form of Levaquin along with a prednisone taper. Total time taken is 35 minutes. History of present illness This is an 83-year-old male who was recently admitted with shortness of breath, generalized weakness, and fever and was found to have influenza infection and was being closely monitored. Patient does have a history of congestive heart failure and appeared to be in acute exacerbation. Patient also had elevated cre atinine and was evaluated by nephrology. Patient will remain on sodium bicarb until follow-up with Dr. Wright in the outpatient setting. Patient will continue with his current dose of Lasix and will need repeat labs in a few days to monitor creatinine. During hospitalization patient completed a course of Tamiflu for the influenza infection and will continue with oral antibiotics in the form of Levaquin along with a prednisone taper upon discharge. Patient does use a CPAP at home and adjustments were made to his machine and it is working properly now. Patient will also continue with home care in the outpatient setting upon discharge. No reports of chest pain, shortness of breath, or palpitations. Patient is afebrile. No reports of nausea vomiting and patient is tolerating diet. Patient instructed to increase activity as tolerated. On exam vital signs are stable. Temp is 98.1F, pulse is 65, respirations are 16, blood pressure is 136/87, oxygen saturation is 95% on room air. Cardio S1, S2 are present. Patient does have a pacemaker and AICD device. Respiratory shows diminished breath sounds at the bases with no wheezing noted. Abdomen is soft and nontender. Nervous system shows no focal deficits. Please refer to medication reconciliation sheet for a list of medications. Patient Condition at Discharge: Stable Plan - Discharge Summary Discharge Rx Participant: No New Discharge Prescriptions: New Levofloxacin [Levaquin] 750 mg PO Q48H #4 tab predniSONE 10 mg PO DIRECTED #30 tab Sodium Bicarbonate Tab 650 mg PO BID #30 tab Metoprolol Succinate (ER) [Toprol XL] 25 mg PO DAILY tab.er.24h Continue Potassium Chloride ER [K-Dur 10] 10 meq PO DAILY@1200 Levothyroxine Sodium [Synthroid] 125 mcg PO MOTUWETHFRSA Furosemide [Lasix] 60 mg PO DAILY Finasteride [Proscar] 5 mg PO DAILY@1200 Ezetimibe [Zetia] 10 mg PO HS Amiodarone [Cordarone] 200 mg PO DAILY Vitamin B Complex 1 cap PO W/SUPPER Glimepiride [Amaryl] 0.5 mg PO AC-BRKFST Ubidecarenone [Co Q-10] 100 mg PO W/SUPPER Focus 1 tab PO BID Ascorbic Acid [Vitamin C] 1,000 mg PO DAILY@1200 Levothyroxine Sodium [Synthroid] 62.5 mcg PO ARREDONDO Atorvastatin [Lipitor] 20 mg PO DAILY@1200 [place]-3 Fatty Acids [[place]-3] 1,000 mg PO W/SUPPER Ergocalciferol [Vitamin D2 (DRISDOL)] 50,000 unit PO SUWE Glucosam/George-Msm1/C/Roe/Bosw [Glucosamine-Chondroitin Tablet] 1 tab PO BID@1200,2100 Turmeric Root Extract [Turmeric] 500 mg PO W/SUPPER [place] 1 cap PO BID@1200,2100 Oil Of Oregano 1 cap PO W/SUPPER Discontinued Metoprolol Succinate (ER) [Toprol XL] 25 mg PO BID@0900,1700 Losartan [Cozaar] 25 mg PO BID amLODIPine [Norvasc] 10 mg PO DAILY Discharge Medication List Amiodarone [Cordarone] 200 mg PO DAILY 01/16/16 [History] Ezetimibe [Zetia] 10 mg PO HS 01/16/16 [History] Finasteride [Proscar] 5 mg PO DAILY@1200 01/16/16 [History] Furosemide [Lasix] 60 mg PO DAILY 01/16/16 [History] Levothyroxine Sodium [Synthroid] 125 mcg PO MOTUWETHFRSA 01/16/16 [History] Potassium Chloride ER [K-Dur 10] 10 meq PO DAILY@1200 01/16/16 [History] Ascorbic Acid [Vitamin C] 1,000 mg PO DAILY@1200 07/24/19 [History] Atorvastatin [Lipitor] 20 mg PO DAILY@1200 07/24/19 [History] [place] 1 cap PO BID@1200,2100 07/24/19 [History] Ergocalciferol [Vitamin D2 (DRISDOL)] 50,000 unit PO WE 07/24/19 [History] Focus 1 tab PO BID 07/24/19 [History] Glimepiride [Amaryl] 0.5 mg PO AC-BRKFST 07/24/19 [History] Glucosam/George-Msm1/C/Roe/Bosw [Glucosamine-Chondroitin Tablet] 1 tab PO BID@1200,2100 07/24/19 [History] Levothyroxine Sodium [Synthroid] 62.5 mcg PO ARREDONDO 07/24/19 [History] Oil Of Oregano 1 cap PO W/SUPPER 07/24/19 [History] [place]-3 Fatty Acids [[place]-3] 1,000 mg PO W/SUPPER 07/24/19 [History] Turmeric Root Extract [Turmeric] 500 mg PO W/SUPPER 07/24/19 [History] Ubidecarenone [Co Q-10] 100 mg PO W/SUPPER 07/24/19 [History] Vitamin B Complex 1 cap PO W/SUPPER 07/24/19 [History] Levofloxacin [Levaquin] 750 mg PO Q48H #4 tab 07/29/19 [Rx] Metoprolol Succinate (ER) [Toprol XL] 25 mg PO DAILY tab.er.24h 07/29/19 [Rx] Sodium Bicarbonate Tab 650 mg PO BID #30 tab 07/29/19 [Rx] predniSONE 10 mg PO DIRECTED #30 tab 07/29/19 [Rx] Follow up Appointment(s)/Referral(s): Inez Wright MD [STAFF PHYSICIAN] - 1 Week (Please call to schedule appointment) Naldo Khan MD [STAFF PHYSICIAN] - 08/10/19 1:30 pm (Saturday with [employer]) Nadeen Gold NPC [Nurse Practitioner] - 08/10/19 3:15 pm (Saturday) Aston Grey MD [Primary Care Provider] - 08/03/19 11:00 am (Saturday) [facility] Visiting Nurse, [NON-STAFF] - 1-2 Days Ambulatory/Diagnostic Orders: Basic Metabolic Panel [LAB.AMB] Time Frame: 2 Days, Location: None Selected Patient Instructions/Handouts: Influenza (DC), Pneumonia (DC) Discharge Disposition: HOME WITH HOME HEALTH SERVICES
[2019-07-29 16:25] LABS: Glucose,Whole Blood 198 mg/dL (75-99)
== END 2019-07-29 16:36 | disposition home health service (06) | DRG 871 ==
LOC: EC 17:14 → 3SCARD 19:40 → 2SICU 20:19 → 3SCARD 07-27 03:57
PROVIDERS: ADMIT Hospitalist; ATTEND Hospitalist
PROC: 5A09357 Assistance with Respiratory Ventilation, Less than 24 Consecutive Hours, Continuous Positive Airway Pressure (ICD-10-PCS; principal; 2019-07-24)
PROC: 4B02XTZ Measurement of Cardiac Defibrillator, External Approach (ICD-10-PCS; 2019-07-24)
DX: A41.89 Other specified sepsis (principal); I50.23 Acute on chronic systolic (congestive) heart failure; J10.00 Influenza due to other identified influenza virus with unspecified type of pneumonia; J96.02 Acute respiratory failure with hypercapnia; J96.01 Acute respiratory failure with hypoxia; E87.2 Acidosis; I13.0 Hypertensive heart and chronic kidney disease with heart failure and stage 1 through stage 4 chronic kidney disease, or unspecified chronic kidney disease; I42.8 Other cardiomyopathies; I48.11 Longstanding persistent atrial fibrillation; N17.9 Acute kidney failure, unspecified; J44.0 Chronic obstructive pulmonary disease with (acute) lower respiratory infection; J44.1 Chronic obstructive pulmonary disease with (acute) exacerbation; N18.4 Chronic kidney disease, stage 4 (severe); D63.1 Anemia in chronic kidney disease; E03.9 Hypothyroidism, unspecified; E11.22 Type 2 diabetes mellitus with diabetic chronic kidney disease; E11.51 Type 2 diabetes mellitus with diabetic peripheral angiopathy without gangrene; E78.5 Hyperlipidemia, unspecified; G47.33 Obstructive sleep apnea (adult) (pediatric); Z99.89 Dependence on other enabling machines and devices; G51.0 Bell's palsy; H65.90 Unspecified nonsuppurative otitis media, unspecified ear; R65.20 Severe sepsis without septic shock; H70.92 Unspecified mastoiditis, left ear; H91.90 Unspecified hearing loss, unspecified ear; I08.3 Combined rheumatic disorders of mitral, aortic and tricuspid valves; I25.10 Atherosclerotic heart disease of native coronary artery without angina pectoris; I27.20 Pulmonary hypertension, unspecified; M10.9 Gout, unspecified; Z91.81 History of falling; Z79.01 Long term (current) use of anticoagulants; Z79.890 Hormone replacement therapy; Z79.899 Other long term (current) drug therapy; Z80.6 Family history of leukemia; Z85.51 Personal history of malignant neoplasm of bladder; Z85.828 Personal history of other malignant neoplasm of skin; Z87.891 Personal history of nicotine dependence; Z95.810 Presence of automatic (implantable) cardiac defibrillator; Z98.42 Cataract extraction status, left eye; Z98.41 Cataract extraction status, right eye; Z96.1 Presence of intraocular lens; M17.0 Bilateral primary osteoarthritis of knee; H35.30 Unspecified macular degeneration; Z79.84 Long term (current) use of oral hypoglycemic drugs; R79.89 Other specified abnormal findings of blood chemistry; Z82.61 Family history of arthritis
CPT/HCPCS: 36415; 70450; 71045; 71046; 72125; 80048; 80053; 83540; 83550; 83605; 83735; 83880; 84484; 85025; 85610; 85730; 87040; 87502; 93005; 93306; 94640; 94660; 94760; 96365; 99291

== ENCOUNTER → 2019-10-16 | Outpatient (CLI) | payer MEDICARE, OTHER | END | disposition home or self-care (01) | LOC: LABWHC1 10:14 | PROVIDERS: ATTEND Internal Medicine Interventional Cardiology | DX: U07.1 COVID-19 (principal) | CPT/HCPCS: 87635 ==

== ENCOUNTER → 2019-10-19 | Day surgery (SDC) | payer MEDICARE, OTHER ==
[2019-10-15 14:55] VITALS: BMI 27.9
[~2019-10-19] MED LIST: ALPRAZolam 0.25 MG TAB PO PRN; ALPRAZolam 0.5 MG TAB PO PRN; ASPIRIN 325 MG TAB PO ONE; IOPAMIDOL-370 125ML BTL INJ ONE; LIDOCAINE 1% INJ 10MG/ML (20 ML MDV) SQ ONE; MIDAZOLAM 2 MG/2 ML VIAL IVP ONE; NITROGLYCERIN SL TABS 0.4 MG TAB SUBLINGUAL PRN; RX INFO: IV CONTRAST WAS GIVEN 1 EACH MISC MISCELLANE PRN; SODIUM CHLORIDE 0.9% 1,000 ML IV ONE; SODIUM CHLORIDE 0.9% 1,000 ML IV SCH; SODIUM CHLORIDE 0.9% 1,000 ML in EMPTY BAG 1 BAG IV ONE; fentaNYL (PF) 50 MCG/ML 2 ML AMP IVP ONE; fentaNYL (PF) 50 MCG/ML 2 ML AMP ONE
[2019-10-19 06:54] LABS: Glucose,Whole Blood 136 mg/dL (75-99)
[2019-10-19 07:12] LABS: INR 1.6 (<1.2); Prothrombin Time 15.6 sec (9.0-12.0)
[2019-10-19 07:15] VITALS: TEMP 98.3
[2019-10-19 07:16] VITALS: RESP 16
[2019-10-19 07:27] LABS: Potassium 3.6 mmol/L (3.5-5.1)
[2019-10-19 07:30] LABS: Basophils # (A) 0.1 k/uL (0-0.2); Basophils % (A) 0 %; Eosinophils # (A) 0.3 k/uL (0-0.7); Eosinophils % (A) 3 %; HCT 38.4 % (39.0-53.0); HGB 12.3 gm/dL (13.0-17.5); Lymphocytes # (A) 1.9 k/uL (1.0-4.8); Lymphocytes % (A) 19 %; MCH 33.6 pg (25.0-35.0); MCV 104.9 fL (80.0-100.0); Macrocytosis Moderate; Monocytes # (A) 0.6 k/uL (0-1.0); Monocytes % (A) 6 %; Neutrophils # (A) 7.1 k/uL (1.3-7.7); Neutrophils % (A) 69 %; Platelet Count 290 k/uL (150-450); RBC 3.66 m/uL (4.30-5.90); RDW 14.2 % (11.5-15.5); WBC 10.3 k/uL (3.8-10.6)
[2019-10-19] MEDS: BENZOCAINE SPRAY 1 CAN TOPICAL ONE ×2 (07:44→07:45)
--- NOTE | 2019-10-19 08:12 | P.PCN ---
Date of Procedure: 10/19/19 Operative Findings: TRANSESOPHAGEAL ECHOCARDIOGRAM POWER SHOVEL ENGINEER: EDWARD WEST MD, RPVI INDICATION: This is a very pleasant 84-year-old gentleman who was brought today to undergo transesophageal echocardiogram for further evaluation of aortic stenosis. SEDATION: Conscious sedation with sedation length of 20 minutes COMPLICATION: None PROCEDURE DESCRIPTION: After obtaining an informed consent, the patient was brought to transesophageal echocardiogram room. Pulse oximetry and heart monitors were attached to the patient. The patient throat was sprayed using lidocaine. The patient was turned into left lateral position. After that a bite guard was placed. After an appropriate conscious sedation was initiated, the transesophageal echocardiogram was advanced through a bite guard into the mid esophagus. A 2-D echocardiogram images, color Doppler images, continuous wave images, pulse-wave images, of various cardiac structure were performed. After that the transesophageal echocardiogram probe was advanced into the stomach and fixed to obtain transgastric view was. The probe was brought into the mid esophagus. Inter-atrial septum was interrogated using 2D images, color Doppler images, and then contrast study. After that transesophageal echocardiogram was withdrawn out and upon withdrawing the descending thoracic aorta all the way up to the arch was evaluated. FINDING: The left ventricle is dilated. The left ventricular systolic function is impaired. Ejection fraction appears to be in the range of 30-35% with global hypokinesia. The right ventricle appeared to be of normal size and function. The left atrium appears to be dilated. The right atrium appeared to be within normal limits for dimension. The left atrial appendage appeared to be free from any thrombus. The interatrial septum appears to be intact by color flow Doppler. The mitral valve appeared to be mildly thickened with evidence of moderate mitral regurgitation with a central jet. Tricuspid valve also does have moderate tricuspid regurgitation. The aortic valve appears to be trileaflet valve and aortic valve doesn't seems to be calcified was evidence off moderate aortic stenosis with a peak gradient of 40 and mean of 20 mmHg as well as evidence of moderate aortic insufficiency. The pulmonic valve appeared to have evidence of mild pulmonic insufficiency. No evidence of pericardial effusion seen. CONCLUSION: 1. Impaired left ventricular systolic function with ejection fraction between 30-35% with global hypokinesia and dilated left ventricle 2. Normal right ventricular dimension and systolic function 3. Dilated left atrium and normal right atrial dimension 4. Normal left atrium appendage without any evidence of thrombus 5. Trileaflet aortic valve with evidence of moderate aortic stenosis and moderate aortic insufficiency 6. Thickened mitral valve leaflets was evidence of moderate mitral insufficiency 7. Moderate tricuspid insufficiency 8. No evidence of pericardial effusion
--- NOTE | 2019-10-19 08:46 | P.PCN ---
Date of Procedure: 10/19/19 Operative Findings: CARDIAC CATHETERIZATION PERFORMING PHYSICIAN: Naldo Khan MD, RPVI PROCEDURE PERFORMED: 1. Selective right and left coronary angiogram INDICATION: This is an 84-year-old gentleman with cardiomyopathy as well as aortic stenosis as well as long-standing persistent atrial fibrillation was experiencing increasing shortness of breath. The echo in the office revealed evidence of moderate to severe aortic stenosis. He was brought today for further evaluation of the aortic valve. The ZAIRA was performed earlier today. Now he is coming to undergo a heart catheterization COMPLICATION: None APPROACH: Right common femoral artery LEVEL OF SEDATION: Moderate with sedation length of 13 minutes PROCEDURE DESCRIPTION: After obtaining an informed consent, the patient was brought to cardiac laborer stores. Local anesthesia was performed using lidocaine subcutaneously. The right common femoral artery was cannulated using Seldinger technique, the guidewire passed easily, following that we advanced a 6 Romanian sheath dilator assembly, the wire and dilator were removed and sheath was flushed. Selective right and left coronary angiogram using a 6-Romanian JR4 and JL catheters. The procedure was completed there was no complication. SELECTIVE CORONARY ANGIOGRAM: The right coronary artery: Is a large caliber vessel and a dominant vessel. Its angiographically normal. The RCA is calcified. Left main: Calcified and seems to be angiographically normal. Bifurcates into LCx and LAD The left circumflex: Is a large caliber vessel and nondominant vessel. The LCx is calcified was mild disease only. In the proximal to midportion gives rises into a large OM branch which appears to be angiographically normal. The left anterior descending artery: Is a large caliber vessel. Its calcified was mild disease only. In the pro ximal to midportion gives rises into the first and second diagonal branches and both appeared to be angiographically normal. CONCLUSION: Calcified right and left coronary systems Mild nonobstructive coronary artery disease POSTPROCEDURE MANAGEMENT: 1. Medical treatment 2. Follow-up with the patient
[2019-10-19 19:14] VITALS: BP 118/64; PULSE 82
== END ==
LOC: CATHCVL 06:18
PROVIDERS: ATTEND Internal Medicine Interventional Cardiology
DX: I25.10 Atherosclerotic heart disease of native coronary artery without angina pectoris (principal); I08.3 Combined rheumatic disorders of mitral, aortic and tricuspid valves; I42.8 Other cardiomyopathies; I48.11 Longstanding persistent atrial fibrillation; I10 Essential (primary) hypertension; E11.9 Type 2 diabetes mellitus without complications; E78.5 Hyperlipidemia, unspecified; Z79.01 Long term (current) use of anticoagulants; Z79.890 Hormone replacement therapy; Z79.84 Long term (current) use of oral hypoglycemic drugs; Z79.899 Other long term (current) drug therapy; Z88.5 Allergy status to narcotic agent; Z91.040 Latex allergy status; Z95.0 Presence of cardiac pacemaker
CPT/HCPCS: 93312; 93320; 93325; 93454; 80048; 85025; 85610; C1769 ×3; C1894 ×2; J2250; J2001; J3010; Q9967

== ENCOUNTER 2020-10-07 11:17 | Inpatient (IN) | payer MEDICARE, OTHER ==
[2020-10-07] MEDS ORDERED: IBUPROFEN 600 MG TAB PO STA (11:34)
[2020-10-07] MEDS ORDERED: ACETAMINOPHEN TAB 500 MG TAB PO STA (11:34)
[2020-10-07] MEDS: SODIUM CHLORIDE 0.9% 500 ML 500 ML IV SCH ×2 (11:59→13:33)
--- NOTE | 2020-10-07 12:08 | ED ---
General Adult HPI - General Chief complaint: Shortness of Breath Stated complaint: Difficulty Breathing Time Seen by Provider: 10/07/20 11:20 Source: patient, EMS, RN notes reviewed, old records reviewed Mode of arrival: EMS Limitations: no limitations - History of Present Illness Initial comments: This is an 85-year-old male presents emergency Department stating last night before bed he started becoming short of breath per patient states through the night he was also slightly cold and couldn't get warm. Patient denies any chest pain. Patient denies any cough. Patient states she has a history of congestive heart failure. Patient states his legs are no more swollen than they have been in the past. Patient denies any calf tenderness. Patient denies any palpitations. Patient denies any abdominal pain patient denies nausea vomiting diarrhea. Patient denies any recent exposure to cold. - Related Data Home Medications Medication Instructions Recorded Confirmed Amiodarone [Cordarone] 200 mg PO DAILY 01/16/16 10/07/20 Ezetimibe [Zetia] 10 mg PO BID 01/16/16 10/07/20 Finasteride [Proscar] 5 mg PO DAILY@1200 01/16/16 10/07/20 Furosemide [Lasix] 40 mg PO DAILY@1200 01/16/16 10/07/20 Potassium Chloride ER [K-Dur 10] 10 meq PO DAILY@1200 01/16/16 10/07/20 Ascorbic Acid [Vitamin C] 1,000 mg PO DAILY@1200 07/24/19 10/07/20 Atorvastatin [Lipitor] 20 mg PO DAILY@1200 07/24/19 10/07/20 [place] 1 cap PO BID@1200,2100 07/24/19 10/07/20 Turmeric Root Extract [Turmeric] 500 mg PO DAILY 07/24/19 10/07/20 Vitamin B Complex 1 cap PO W/SUPPER 07/24/19 10/07/20 Krill Oil 500 mg PO DAILY 10/15/19 10/07/20 Metoprolol Succinate (ER) [Toprol 25 mg PO BID 10/15/19 10/07/20 XL] Warfarin [Coumadin] 1.5 mg PO MOFR 10/15/19 10/07/20 Warfarin [Coumadin] 3 mg PO TUWETH 10/15/19 10/07/20 Ergocalciferol (Vitamin D2) 1,250 mcg PO SUWE 10/07/20 10/07/20 [Drisdol (50,000 Iu)] Ferrous Sulfate [Iron] 325 mg PO DAILY@1200 10/07/20 10/07/20 Focus Select 2 tab PO DAILY 10/07/20 10/07/20 Glucosam/George-Msm1/C/Roe/Bosw 1 tab PO BID 10/07/20 10/07/20 [Tgvhbtwllck-Xzlfyqrdrkl-UNW Tb] Levothyroxine Sodium [Synthroid] 100 mcg PO MOTUWETHFRSA 10/07/20 10/07/20 Oil Of Oregano 1,500 mg PO DAILY 10/07/20 10/07/20 Ubidecarenone [Co Q-10] 400 mg PO DAILY 10/07/20 10/07/20 Previous Rx's Medication Instructions Recorded Sodium Bicarbonate Tab 650 mg PO BID #30 tab 07/29/19 Allergies Allergy/AdvReac Type Severity Reaction Status Date / Time morphine Allergy Nausea & Verified 10/07/20 13:06 Vomiting Review of Systems ROS Statement: Those systems with pertinent positive or pertinent negative responses have been documented in the HPI. ROS Other: All systems not noted in ROS Statement are negative. 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 Past Anesthesia/Blood Transfusion Reactions: No Reported Reaction Type of Cardiac Device: Permanent Pacemaker, AICD Device Placement Date:: 09/28/11 Past Psychological History: No Psychological Hx Reported Smoking Status: Never smoker Past Alcohol Use History: Rare Past Drug Use History: None Reported - Past Family History Mother Family Medical History: Cancer Additional Family Medical History / Comment(s): Mother had leukemia. She at the age of 80 yrs. Father Family Medical History: Osteoarthritis (OA) Additional Family Medical History / Comment(s): Father had severe arthritis. He in his late 70's General Exam - General Exam Comments Initial Comments: GENERAL: Patient is well-developed and well-nourished. Patient is nontoxic and well- hydrated and is in mild distress. ENT: Neck is soft and supple. No significant lymphadenopathy is noted. Oropharynx is clear. Moist mucous membranes. Neck has full range of motion without eliciting any pain. EYES: The sclera were anicteric and conjunctiva were pink and moist. Extraocular movements were intact and pupils were equal round and reactive to light. Eyelids were unremarkable. PULMONARY: Unlabored respirations. Good breath sounds bilaterally. Decreased breath sounds bilaterally with some crackles in the bases particularly on the right. CARDIOVASCULAR: There is a regular rate and rhythm without any murmurs gallops or rubs. ABDOMEN: Soft and nontender with normal bowel sounds. SKIN: Skin is clear with no lesions or rashes and otherwise unremarkable. NEUROLOGIC: Patient is alert and oriented x3. Cranial nerves II through XII are grossly intact. Motor and sensory are also intact. Normal speech, volume and content. Symmetrical smile. MUSCULOSKELETAL: Normal extremities with adequate strength and full range of motion. LYMPHATICS: No significant lymphadenopathy is noted PSYCHIATRIC: Normal psychiatric evaluation. Limitations: no limitations Course Vital Signs 10/07/20 10/07/20 10/07/20 11:19 11:33 12:12 Temperature 101.0 F H Pulse Rate 59 L 57 L Respiratory 16 18 Rate Blood Pressure 127/58 114/58 O2 Sat by Pulse 94 L 94 L Oximetry Medical Decision Making - Medical Decision Making EKG shows a paced rhythm at 53 bpm QRS is 174 QT interval 644 QTC is 604. Chest x-ray shows acute pulmonary edema with bilateral pleural effusions and bilateral infiltrates. I gave the patient some Lasix in the emergency department as well as antibiotics. Patient did not receive a bolus of fluid secondary to the fact that the patient had significant acute pulmonary edema and we did not want to exacerbate that at this time. - Lab Data Result diagrams: 10/07/20 11:50 10/07/20 11:50 Lab Results 10/07/20 10/07/20 10/07/20 Range/Units 11:50 11:50 11:50 WBC 11.8 H (3.8-10.6) k/uL RBC 3.08 L (4.30-5.90) m/uL Hgb 11.3 L (13.0-17.5) gm/dL Hct 33.9 L (39.0-53.0) % MCV 110.1 H (80.0-100.0) fL MCH 36.6 H (25.0-35.0) pg MCHC 33.3 (31.0-37.0) g/dL RDW 14.6 (11.5-15.5) % Plt Count 172 (150-450) k/uL MPV 8.2 Neutrophils % 83 % Lymphocytes % 9 % Monocytes % 6 % Eosinophils % 0 % Basophils % 0 % Neutrophils # 9.8 H (1.3-7.7) k/uL Lymphocytes # 1.0 (1.0-4.8) k/uL Monocytes # 0.7 (0-1.0) k/uL Eosinophils # 0.0 (0-0.7) k/uL Basophils # 0.0 (0-0.2) k/uL Manual Slide Review Performed Macrocytosis Marked A PT (9.0-12.0) sec INR (<1.2) APTT (22.0-30.0) sec Sodium 139 (137-145) mmol/L Potassium 4.0 (3.5-5.1) mmol/L Chloride 107 (98-107) mmol/L Carbon Dioxide 23 (22-30) mmol/L Anion Gap 9 mmol/L BUN 36 H (9-20) mg/dL Creatinine 2.43 H (0.66-1.25) mg/dL Est GFR (CKD-EPI)AfAm 27 (>60 ml/min/1.73 sqM) Est GFR (CKD-EPI)NonAf 23 (>60 ml/min/1.73 sqM) Glucose 114 H (74-99) mg/dL Plasma Lactic Acid Ibrahima (0.7-2.0) mmol/L Calcium 8.9 (8.4-10.2) mg/dL Total Bilirubin 1.2 (0.2-1.3) mg/dL AST 125 H (17-59) U/L ALT 57 H (4-49) U/L Alkaline Phosphatase 101 (38-126) U/L Total Protein 6.0 L (6.3-8.2) g/dL Albumin 3.0 L (3.5-5.0) g/dL Urine Color Yellow Urine Appearance Clear (Clear) Urine pH 5.5 (5.0-8.0) Ur Specific [place] 1.013 (1.001-1.035) Urine Protein 1+ H (Negative) Urine Glucose (UA) Negative (Negative) Urine Ketones Negative (Negative) Urine Blood Negative (Negative) Urine Nitrite Negative (Negative) Urine Bilirubin Negative (Negative) Urine Urobilinogen <2.0 (<2.0) mg/dL Ur Leukocyte Esterase Negative (Negative) Urine WBC 1 (0-5) /hpf Ur Squamous Epith Cells <1 (0-4) /hpf Urine Mucus Rare H (None) /hpf Coronavirus (PCR) (Not Detectd) 10/07/20 10/07/20 10/07/20 Range/Units 11:50 11:50 12:45 WBC (3.8-10.6) k/uL RBC (4.30-5.90) m/uL Hgb (13.0-17.5) gm/dL Hct (39.0-53.0) % MCV (80.0-100.0) fL MCH (25.0-35.0) pg MCHC (31.0-37.0) g/dL RDW (11.5-15.5) % Plt Count (150-450) k/uL MPV Neutrophils % % Lymphocytes % % Monocytes % % Eosinophils % % Basophils % % Neutrophils # (1.3-7.7) k/uL Lymphocytes # (1.0-4.8) k/uL Monocytes # (0-1.0) k/uL Eosinophils # (0-0.7) k/uL Basophils # (0-0.2) k/uL Manual Slide Review Macrocytosis PT 21.3 H (9.0-12.0) sec INR 2.2 H (<1.2) APTT 35.1 H (22.0-30.0) sec Sodium (137-145) mmol/L Potassium (3.5-5.1) mmol/L Chloride (98-107) mmol/L Carbon Dioxide (22-30) mmol/L Anion Gap mmol/L BUN (9-20) mg/dL Creatinine (0.66-1.25) mg/dL Est GFR (CKD-EPI)AfAm (>60 ml/min/1.73 sqM) Est GFR (CKD-EPI)NonAf (>60 ml/min/1.73 sqM) Glucose (74-99) mg/dL Plasma Lactic Acid Ibrahima 3.3 H* (0.7-2.0) mmol/L Calcium (8.4-10.2) mg/dL Total Bilirubin (0.2-1.3) mg/dL AST (17-59) U/L ALT (4-49) U/L Alkaline Phosphatase (38-126) U/L Total Protein (6.3-8.2) g/dL Albumin (3.5-5.0) g/dL Urine Color Urine Appearance (Clear) Urine pH (5.0-8.0) Ur Specific [place] (1.001-1.035) Urine Protein (Negative) Urine Glucose (UA) (Negative) Urine Ketones (Negative) Urine Blood (Negative) Urine Nitrite (Negative) Urine Bilirubin (Negative) Urine Urobilinogen (<2.0) mg/dL Ur Leukocyte Esterase (Negative) Urine WBC (0-5) /hpf Ur Squamous Epith Cells (0-4) /hpf Urine Mucus (None) /hpf Coronavirus (PCR) Not Detected (Not Detectd) Critical Care Time Critical Care Time: Yes Total Critical Care Time: 35 Disposition Clinical Impression: Pneumonia, Acute pulmonary edema Disposition: ADMITTED IP TO THIS HOSP Referrals: Aston Grey MD [Primary Care Provider] - 1-2 days Time of Disposition: 13:39
[2020-10-07 12:12] LABS: Basophils % (A) 0 %; Eosinophils % (A) 0 %; HCT 33.9 % (39.0-53.0); HGB 11.3 gm/dL (13.0-17.5); Lymphocytes % (A) 9 %; MCH 36.6 pg (25.0-35.0); MCHC 33.3 g/dL (31.0-37.0); MCV 110.1 fL (80.0-100.0); Macrocytosis Marked; Mean Platelet Volume 8.2; Monocytes # (A) 0.7 k/uL (0-1.0); Monocytes % (A) 6 %; Neutrophils # (A) 9.8 k/uL (1.3-7.7); Neutrophils % (A) 83 %; Platelet Count 172 k/uL (150-450); RBC 3.08 m/uL (4.30-5.90); RDW 14.6 % (11.5-15.5); WBC 11.8 k/uL (3.8-10.6)
[2020-10-07 12:22] LABS: Calcium 8.9 mg/dL (8.4-10.2); Total Bilirubin 1.2 mg/dL (0.2-1.3)
[2020-10-07 12:23] LABS: Appearance,Urine Clear (Clear); Bilirubin,Urine Negative (Negative); Blood,Urine Negative (Negative); Color,Urine Yellow; Glucose,Urine (UA) Negative (Negative); Ketones,Urine Negative (Negative); Leukocyte Esterase,Urine Negative (Negative); Mucus,Urine Rare /hpf; Nitrite,Urine Negative (Negative); PH, Urine 5.5 (5.0-8.0); Protein,Urine 1+ (Negative); Specific Gravity,Urine 1.013 (1.001-1.035); Squamous Epithelial Cell,Urine <1 /hpf (0-4); Urobilinogen,Urine <2.0 mg/dL (<2.0); WBC,Urine 1 /hpf (0-5)
--- NOTE | 2020-10-07 12:41 | XR ---
EXAMINATION TYPE: XR chest 2V DATE OF EXAM: 10/07/2020 COMPARISON: 07/28/2019 INDICATION: Fever TECHNIQUE: Frontal and lateral views of the chest are obtained. FINDINGS: The heart size is enlarged. The pulmonary vasculature is upper limits of normal. Small bilateral pleural effusions are present. Adjacent infiltrates are present. Findings are worseni ng over the interval.. IMPRESSION: 1. Clinical correlation recommended for congestive heart failure. 2. Bibasilar infiltrates are present in atelectasis and pneumonia could be considered.
[2020-10-07 13:10] LABS: INR 2.2 (<1.2); Partial Thromboplastin Time 35.1 sec (22.0-30.0); Prothrombin Time 21.3 sec (9.0-12.0)
[2020-10-07] MEDS ORDERED: cefTRIAXone IN SWFI 1,000 MG/10 ML SYRINGE IVP STA ×2 (13:20→13:21)
[2020-10-07] MEDS ORDERED: FUROSEMIDE 10 MG/ML 4 ML VIAL IV STA (13:20)
[2020-10-07] MEDS ORDERED: SODIUM CHLORIDE 0.9% 500 ML 500 ML IV ONE (13:33)
[2020-10-07] MEDS ORDERED: AZITHROMYCIN 500 MG in SODIUM CHLORIDE 0.9% 250 ML IVPB STA (13:40)
[2020-10-07] MEDS ORDERED: PNEUMONIA PROTOCOL UTILIZED 1 EACH MISC PO PRN (13:40)
[2020-10-07] MEDS ORDERED: FUROSEMIDE 10 MG/ML 2 ML VIAL IV SCH (16:00)
--- NOTE | 2020-10-07 17:39 | P.HPIM ---
History of Present Illness 85-year-old male came in with complaints of for short of breath restarted yesterday along with cough nonproductive. Because of her shortness of breath and not feeling well patient didn't take his a Lasix yesterday and today. Patie nt the felt more short of breath and also complained of orthopnea and denied any proximal nocturnal dyspnea. Patient does a valid highly elevated BNP I didn't clearly appreciate JVD. Patient does have some pedal edema does have history of congestive heart failure although it does not have any echocardiogram available at this time. Although patient does tell me that he has history of congestive heart failure. Patient BNP is around 24,000. Patient was also having fever. Patient had a chest x-ray which showed bilateral lower lobe infiltrates with possibly of pneumonia, pleural effusions bilaterally and the pulmonary venous congestion on the x-ray did patient appears to have both CHF as well as pneumonia. Patient has creatinine of 2.4 baseline appears to be around 2 in 2020. does have history of atrial fibrillation on Coumadin, unsure whether patient has valvular A. fib patient's INR is therapeutic Patient has an AICD in place as well patient does have leukocytosis. Patient had lactic acidosis because of which he initially received the IV fluids is lactic is doses resolved. Review of Systems REVIEW OF SYSTEMS: CONSTITUTIONAL: no malaise, no fatigue. HEENT: No recent visual problems or hearing problems. Denied any sore throat. CARDIOVASCULAR: No chest pain, orthopnea, PND, no palpitations, no syncope. PULMONARY: , no hemoptysis. GASTROINTESTINAL: No diarrhea, no nausea, no vomiting, no abdominal pain. NEUROLOGICAL: No headaches, no weakness, no numbness. HEMATOLOGICAL: Denies any bleeding or petechiae. GENITOURINARY: Denies any burning micturition, frequency, or urgency. MUSCULOSKELETAL/RHEUMATOLOGICAL: Denies any joint pain, swelling, or any muscle pain. ENDOCRINE: Denies any polyuria or polydipsia. The rest of the 14-point review of systems is negative. Past Medical History Past Medical History: Atrial Fibrillation, Coronary Artery Disease (CAD), Cancer, Diabetes Mellitus, Eye Disorder, Hyperlipidemia, Hypertension, Neurologic Disorder, Osteoarthritis (OA), Sleep Apnea/CPAP/BIPAP, Thyroid Disorder, Vascular Disorder Additional Past Medical History / Comment(s): 1992 bladder cancer with cauterization, ERICK with CPAP, bilateral varicosities with L leg worse, PVD, balance issues, low back pain, arthritis to back and knees bilaterally, Medina's p alsy-R sided facial droop if tired, macular degeneration bilaterally, hypothyroid, History of Any Multi-Drug Resistant Organisms: None Reported Past Surgical History: AICD, Appendectomy, Cholecystectomy, Pacemaker Additional Past Surgical History / Comment(s): AICD/Pacer, 3 L ear myringotomies and tubes, sinus surgery, cardiac caths-no balooning or stenting, EGD/colonoscopy, bilateral cataracts with lenses, bladder cautery for CA. Past Anesthesia/Blood Transfusion Reactions: No Reported Reaction Type of Cardiac Device: Permanent Pacemaker, AICD Device Placement Date:: 09/28/11 Past Psychological History: No Psychological Hx Reported Smoking Status: Never smoker Past Alcohol Use History: Rare Past Drug Use History: None Reported - Past Family History Mother Family Medical History: Cancer Additional Family Medical History / Comment(s): Mother had leukemia. She at the age of 80 yrs. Father Family Medical History: Osteoarthritis (OA) Additional Family Medical History / Comment(s): Father had severe arthritis. He in his late 70's Medications and Allergies Home Medications Medication Instructions Recorded Confirmed Type Amiodarone [Cordarone] 200 mg PO DAILY 01/16/16 10/07/20 History Ezetimibe [Zetia] 10 mg PO BID 01/16/16 10/07/20 History Finasteride [Proscar] 5 mg PO DAILY@1200 01/16/16 10/07/20 History Furosemide [Lasix] 40 mg PO DAILY@1200 01/16/16 10/07/20 History Potassium Chloride ER [K-Dur 10] 10 meq PO DAILY@119901/16/16 10/07/20 History Ascorbic Acid [Vitamin C] 1,000 mg PO DAILY@1200 07/24/19 10/07/20 History Atorvastatin [Lipitor] 20 mg PO DAILY@1200 07/24/19 10/07/20 History Black Reyes 1 cap PO BID@1200,2100 07/24/19 10/07/20 History Turmeric Root Extract [Turmeric] 500 mg PO DAILY 07/24/19 10/07/20 History Vitamin B Complex 1 cap PO W/SUPPER 07/24/19 10/07/20 History Sodium Bicarbonate Tab 650 mg PO BID #30 tab 07/29/19 10/07/20 Rx Krill Oil 500 mg PO DAILY 10/15/19 10/07/20 History Metoprolol Succinate (ER) [Toprol 25 mg PO BID 10/15/19 10/07/20 History XL] Warfarin [Coumadin] 1.5 mg PO MOFR 10/15/19 10/07/20 History Warfarin [Coumadin] 3 mg PO TUWETH 10/15/19 10/07/20 History Ergocalciferol (Vitamin D2) 1,250 mcg PO SUWE 10/07/20 10/07/20 History [Drisdol (50,000 Iu)] Ferrous Sulfate [Iron] 325 mg PO DAILY@1200 10/07/20 10/07/20 History Focus Select 2 tab PO DAILY 10/07/20 10/07/20 History Glucosam/George-Msm1/C/Roe/Bosw 1 tab PO BID 10/07/20 10/07/20 History [Tbskbquubwk-Iqbijevmlou-OOL Tb] Levothyroxine Sodium [Synthroid] 100 mcg PO MOTUWETHFRSA 10/07/20 10/07/20 History Oil Of Oregano 1,500 mg PO DAILY 10/07/20 10/07/20 History Ubidecarenone [Co Q-10] 400 mg PO DAILY 10/07/20 10/07/20 History Allergies Allergy/AdvReac Type Severity Reaction Status Date / Time morphine Allergy Nausea & Verified 10/07/20 13:06 Vomiting Physical Exam Vitals: Vital Signs Temp Pulse Resp BP Pulse Ox 10/07/20 15:26 89 16 101/64 99 10/07/20 13:41 99.6 F 68 16 94/53 95 10/07/20 12:12 57 L 18 114/58 94 L 10/07/20 11:33 101.0 F H 10/07/20 11:19 59 L 16 127/58 94 L Intake and Output 10/07/20 10/07/20 10/07/20 06:59 14:59 22:59 Other: Weight 86.183 kg PHYSICAL EXAMINATION: GENERAL: The patient is alert and oriented x3, not in any acute distress. Well developed, well nourished. HEENT: Pupils are round and equally reacting to light. EOMI. No scleral icterus. No conjunctival pallor. Normocephalic, atraumatic. No pharyngeal erythema. No thyromegaly. CARDIOVASCULAR: S1 and S2 present. No murmurs, rubs, or gallops. Clearly as as a JVD PULMONARY: Chest is clear to auscultation, no wheezing or crackles. ABDOMEN: Soft, nontender, nondistended, normoactive bowel sounds. No palpable organomegaly. MUSCULOSKELETAL: No joint swelling or deformity. EXTREMITIES: No cyanosis, clubbing, and bilateral pitting pedal edema NEUROLOGICAL: Gross neurological examination did not reveal any focal deficits. SKIN: No rashes. Results CBC & Chem 7: 10/07/20 11:50 10/07/20 11:50 Labs: Abnormal Lab Results - Last 24 Hours (Table) 10/07/20 10/07/20 10/07/20 Range/Units 11:50 11:50 11:50 WBC 11.8 H (3.8-10.6) k/uL RBC 3.08 L (4.30-5.90) m/uL Hgb 11.3 L (13.0-17.5) gm/dL Hct 33.9 L (39.0-53.0) % MCV 110.1 H (80.0-100.0) fL MCH 36.6 H (25.0-35.0) pg Neutrophils # 9.8 H (1.3-7.7) k/uL Macrocytosis Marked A PT (9.0-12.0) sec INR (<1.2) APTT (22.0-30.0) sec BUN 36 H (9-20) mg/dL Creatinine 2.43 H (0.66-1.25) mg/dL Glucose 114 H (74-99) mg/dL Plasma Lactic Acid Ibrahima (0.7-2.0) mmol/L AST 125 H (17-59) U/L ALT 57 H (4-49) U/L Troponin I (0.000-0.034) ng/mL Total Protein 6.0 L (6.3-8.2) g/dL Albumin 3.0 L (3.5-5.0) g/dL Urine Protein 1+ H (Negative) Urine Mucus Rare H (None) /hpf 10/07/20 10/07/20 10/07/20 Range/Units 11:50 12:45 13:28 WBC (3.8-10.6) k/uL RBC (4.30-5.90) m/uL Hgb (13.0-17.5) gm/dL Hct (39.0-53.0) % MCV (80.0-100.0) fL MCH (25.0-35.0) pg Neutrophils # (1.3-7.7) k/uL Macrocytosis PT 21.3 H (9.0-12.0) sec INR 2.2 H (<1.2) APTT 35.1 H (22.0-30.0) sec BUN (9-20) mg/dL Creatinine (0.66-1.25) mg/dL Glucose (74-99) mg/dL Plasma Lactic Acid Ibrahima 3.3 H* (0.7-2.0) mmol/L AST (17-59) U/L ALT (4-49) U/L Troponin I 0.091 H* (0.000-0.034) ng/mL Total Protein (6.3-8.2) g/dL Albumin (3.5-5.0) g/dL Urine Protein (Negative) Urine Mucus (None) /hpf Assessment and Plan Plan: --Shortness of breath: Patient appears to have both pneumonia and CHF. CHF is secondary to noncompliance with his medications patient was started on Rocephin and azithromycin which will be continued patient with was started on Lasix as an increase the dose of Lasix 40 every 8 hourly. Monitor input and output. -Congestive heart failure ejection fraction is not known because of which I can't say patient has systolic dysfunction or diastolic dysfunction although patient is in acute exacerbation: Continue with Lasix -Coronary artery disease -Atrial fibrillation appears to be paroxysmal presently pacer rhythm with bifascicular block. Continue with the rate control medications. 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
[2020-10-07] MEDS ORDERED: WARFARIN 1.5 MG TAB PO SCH (18:00)
[2020-10-07 18:11] LABS: Glucose,Whole Blood 141 mg/dL (75-99)
[2020-10-07 20:11] LABS: Glucose,Whole Blood 130 mg/dL (75-99)
[2020-10-07] MEDS: SODIUM BICARBONATE TAB 650 MG TAB PO SCH (20:53)
[2020-10-07] MEDS: EZETIMIBE 10 MG TAB PO SCH (20:53)
[2020-10-07] MEDS ORDERED: HEPARIN SODIUM,PORCINE/PF 5,000 UNIT/0.5 ML SYRINGE SQ SCH (21:00)
[2020-10-07] MEDS: METOPROLOL SUCCINATE (ER) 25 MG TAB.ER.24H PO SCH (22:48)
[2020-10-08] MEDS: FUROSEMIDE 10 MG/ML 2 ML VIAL IV SCH ×2 (00:03→09:50)
[2020-10-08 06:12] LABS: Glucose,Whole Blood 97 mg/dL (75-99)
[2020-10-08] MEDS: LEVOTHYROXINE 100 MCG TAB PO SCH (06:32)
--- NOTE | 2020-10-08 08:23 | XR ---
EXAMINATION TYPE: XR chest 2V DATE OF EXAM: 10/08/2020 COMPARISON: 10/07/2020 INDICATION: Pneumonia TECHNIQUE: Frontal and lateral views of the chest are obtained. FINDINGS: The heart size is enlarged. The pulmonary vasculature is normal. Bibasilar infiltrates are present. Small bilateral pleural effusions are present. Pacemaker overlies left chest.. IMPRESSION: 1. Stable lung findings with bibasilar infiltrates and small pleural effusions. Continued Follow-up i s recommended
[2020-10-08 08:44] LABS: INR 2.2 (<1.2); Prothrombin Time 21.3 sec (9.0-12.0)
[2020-10-08] MEDS ORDERED: NON FORMULARY DRUG (Glucosam/Chon-Msm1/C/Mang/Bosw [Glucosamine-Chondroitin-Msm Tb] 1 EACH PO SCH (09:00)
[2020-10-08 09:12] LABS: Calcium 8.4 mg/dL (8.4-10.2); Potassium 4.2 mmol/L (3.5-5.1)
[2020-10-08] MEDS: SODIUM BICARBONATE TAB 650 MG TAB PO SCH ×2 (09:51→20:11)
[2020-10-08] MEDS: AMIODARONE 200 MG TAB PO SCH (09:51)
[2020-10-08] MEDS: METOPROLOL SUCCINATE (ER) 25 MG TAB.ER.24H PO SCH ×2 (09:51→20:11)
[2020-10-08] MEDS: EZETIMIBE 10 MG TAB PO SCH ×2 (09:51→20:12)
[2020-10-08] MEDS: AZITHROMYCIN 500 MG TAB PO SCH (09:51)
--- NOTE | 2020-10-08 10:00 | CONS ---
CONSULTATION HISTORY OF PRESENT ILLNESS: Jaswinder Jackman is an 85-year-old gentleman who came into the hospital with increasing shortness of breath. He does have a diagnosis of chronic atrial fib with sick sinus syndrome, underlying pacemaker, moderate aortic stenosis. He takes amiodarone for his atrial fibrillation. He is comfortable, breathing much better after receiving some Lasix. At the time of my evaluation, he is resting comfortably without symptoms. He has no chest pain or palpitations or syncope. PAST MEDICAL HISTORY: 1. Chronic atrial fibrillation with sick sinus syndrome, has a permanent pacemaker. 2. Hypertension. 3. Hyperlipidemia. 4. History of moderate aortic stenosis. 5. History of congestive heart failure. This patient had a previous evaluation by Dr. Khan, who sees him in the office in October of 2019, which revealed that his ejection fraction was fair with a moderate aortic stenosis and moderate aortic insufficiency with moderate mitral insufficiency. Mean gradient was about 20 mmHg at that time and ejection fraction was in the 35% range. Coronary angiography also in October 2019 revealed that he had calcified right and left coronary system with mild nonobstructive CAD. Right coronary was dominant. Clinically, patient is doing much better at this time. PHYSICAL EXAMINATION: On examination, blood pressure is 108/70, pulse rate is 70 per minute irregular. HEENT unremarkable. Fundus was not examined by me. NECK: Supple there is JVD of 1 cm. No carotid bruit. Heart exam reveals S1, S2 with an ejection systolic murmur. Lungs revealed bilateral decent air entry. Abdomen is soft, nontender. Lower extremities reveal mild edema, which patient states has improved. Central nervous system: Grossly no focal deficits. IMPRESSION: 1. Moderate aortic stenosis. 2. Exacerbation of congestive heart failure. 3. Chronic atrial fibrillation with sick sinus syndrome, underlying pacemaker. 4. Chronic exacerbation of systolic heart failure. RECOMMENDATIONS: I am recommending that we continue Lasix today. Switch to oral Lasix tomorrow. The patient's elevated troponin does not suggest myocardial injury, could be related to underlying aortic stenosis and atrial fibrillation. I will recheck LV function by way of an echocardiogram. Discussed my thoughts in detail with the patient. Thank you very much for the consult. MMODL / IJN: [id number] /
--- NOTE | 2020-10-08 10:05 | P.PN ---
Subjective 85-year-old male came in with complaints of for short of breath restarted yesterday along with cough nonproductive. Because of her shortness of breath and not feeling well patient didn't take his a Lasix yesterday and today. Patient the felt more short of breath and also complained of orthopnea and denied any proximal nocturnal dyspnea. Patient does a valid highly elevated BNP I didn't clearly appreciate JVD. Patient does have some pedal edema does have history of congestive heart failure although it does not have any echocardiogram available at this time. Although patient does tell me that he has history of congestive heart failure. Patient BNP is around 24,000. Patient was also having fever. Patient had a chest x-ray which showed bilateral lower lobe infiltrates with possibly of pneumonia, pleural effusions bilaterally and the pulmonary venous congestion on the x-ray did patient appears to have both CHF as well as pneumonia. Patient has creatinine of 2.4 baseline appears to be around 2 in 2019. does have history of atrial fibrillation on Coumadin, unsure whether patient has valvular A. fib patient's INR is therapeutic Patient has an AICD in place as well patient does have leukocytosis. Patient had lactic acid osis because of which he initially received the IV fluids is lactic is doses resolved. 10/05/2020 Patient is feeling better patient is saturating at 98% on 2 L of oxygen we can cut down the oxygen. Patient didn't have much of urine output, nephrology will be consulted patient has was in creatinine to 3.16 patient will be switched to 40 mg twice a day of oral Lasix. Patient remains on IV antibiotics pulmonology and cardiology will evaluate the patient. Constitutional: Denied any fatigue denied any fever. Cardio vascular: denied any chest pain, palpitations Gastrointestinal denied any nausea vomiting Pulmonary: Shortness of breath did improve Neurologic denied any new focal deficits All inpatient medications were reviewed and appropriate changes in these medications as dictated in the interval history and assessment and plan. Objective - Vital Signs Vital signs: Vital Signs Temp 98.1 F 10/08/20 08:00 Pulse 60 10/08/20 08:00 Resp 18 10/08/20 08:00 BP 103/53 10/08/20 08:00 Pulse Ox 98 10/08/20 08:00 Intake & Output 10/07/20 10/08/20 10/08/20 18:59 06:59 18:59 Output Total 350 Balance -350 Weight 86.183 kg 85 kg Output: Urine 350 Other: Voiding Method Urinal # Voids 1 - Exam PHYSICAL EXAMINATION: GENERAL: The patient is alert and oriented x3, not in any acute distress. Well developed, well nourished. HEENT: Pupils are round and equally reacting to light. EOMI. No scleral icterus. No conjunctival pallor. Normocephalic, atraumatic. No pharyngeal erythema. No thyromegaly. CARDIOVASCULAR: S1 and S2 present. No murmurs, rubs, or gallops. Unable to assess JVD PULMONARY: Chest is clear to auscultation, no wheezing or crackles. ABDOMEN: Soft, nontender, nondistended, normoactive bowel sounds. No palpable organomegaly. MUSCULOSKELETAL: No joint swelling or deformity. EXTREMITIES: No cyanosis, clubbing, pedal edema resolved NEUROLOGICAL: Gross neurological examination did not reveal any focal deficits. SKIN: No rashes. - Labs CBC & Chem 7: 10/07/20 11:50 10/08/20 08:03 Labs: Abnormal Lab Results - Last 24 Hours (Table) 10/07/20 10/07/20 10/07/20 Range/Units 11:50 11:50 11:50 WBC 11.8 H (3.8-10.6) k/uL RBC 3.08 L (4.30-5.90) m/uL Hgb 11.3 L (13.0-17.5) gm/dL Hct 33.9 L (39.0-53.0) % MCV 110.1 H (80.0-100.0) fL MCH 36.6 H (25.0-35.0) pg Neutrophils # 9.8 H (1.3-7.7) k/uL Macrocytosis Marked A PT (9.0-12.0) sec INR (<1.2) APTT (22.0-30.0) sec BUN 36 H (9-20) mg/dL Creatinine 2.43 H (0.66-1.25) mg/dL Glucose 114 H (74-99) mg/dL POC Glucose (mg/dL) (75-99) mg/dL Plasma Lactic Acid Ibrahima (0.7-2.0) mmol/L AST 125 H (17-59) U/L ALT 57 H (4-49) U/L Troponin I (0.000-0.034) ng/mL Total Protein 6.0 L (6.3-8.2) g/dL Albumin 3.0 L (3.5-5.0) g/dL Urine Protein 1+ H (Negative) Urine Mucus Rare H (None) /hpf 10/07/20 10/07/20 10/07/20 Range/Units 11:50 12:45 13:28 WBC (3.8-10.6) k/uL RBC (4.30-5.90) m/uL Hgb (13.0-17.5) gm/dL Hct (39.0-53.0) % MCV (80.0-100.0) fL MCH (25.0-35.0) pg Neutrophils # (1.3-7.7) k/uL Macrocytosis PT 21.3 H (9.0-12.0) sec INR 2.2 H (<1.2) APTT 35.1 H (22.0-30.0) sec BUN (9-20) mg/dL Creatinine (0.66-1.25) mg/dL Glucose (74-99) mg/dL POC Glucose (mg/dL) (75-99) mg/dL Plasma Lactic Acid Ibrahima 3.3 H* (0.7-2.0) mmol/L AST (17-59) U/L ALT (4-49) U/L Troponin I 0.091 H* (0.000-0.034) ng/mL Total Protein (6.3-8.2) g/dL Albumin (3.5-5.0) g/dL Urine Protein (Negative) Urine Mucus (None) /hpf 10/07/20 10/07/20 10/07/20 Range/Units 17:44 18:09 19:51 WBC (3.8-10.6) k/uL RBC (4.30-5.90) m/uL Hgb (13.0-17.5) gm/dL Hct (39.0-53.0) % MCV (80.0-100.0) fL MCH (25.0-35.0) pg Neutrophils # (1.3-7.7) k/uL Macrocytosis PT (9.0-12.0) sec INR (<1.2) APTT (22.0-30.0) sec BUN (9-20) mg/dL Creatinine (0.66-1.25) mg/dL Glucose (74-99) mg/dL POC Glucose (mg/dL) 141 H 130 H (75-99) mg/dL Plasma Lactic Acid Ibrahima (0.7-2.0) mmol/L AST (17-59) U/L ALT (4-49) U/L Troponin I 0.121 H* (0.000-0.034) ng/mL Total Protein (6.3-8.2) g/dL Albumin (3.5-5.0) g/dL Urine Protein (Negative) Urine Mucus (None) /hpf 10/07/20 10/08/20 10/08/20 Range/Units 20:35 08:03 08:03 WBC (3.8-10.6) k/uL RBC (4.30-5.90) m/uL Hgb (13.0-17.5) gm/dL Hct (39.0-53.0) % MCV (80.0-100.0) fL MCH (25.0-35.0) pg Neutrophils # (1.3-7.7) k/uL Macrocytosis PT 21.3 H (9.0-12.0) sec INR 2.2 H (<1.2) APTT (22.0-30.0) sec BUN 43 H (9-20) mg/dL Creatinine 3.16 H (0.66-1.25) mg/dL Glucose (74-99) mg/dL POC Glucose (mg/dL) (75-99) mg/dL Plasma Lactic Acid Ibrahima (0.7-2.0) mmol/L AST (17-59) U/L ALT (4-49) U/L Troponin I 0.117 H* (0.000-0.034) ng/mL Total Protein (6.3-8.2) g/dL Albumin (3.5-5.0) g/dL Urine Protein (Negative) Urine Mucus (None) /hpf Assessment and Plan Plan: --Shortness of breath: Patient appears to have both pneumonia and CHF. CHF is secondary to noncompliance with his medications patient was started on Rocephin and azithromycin which will be continued patient is a day Lasix yesterday with worsening of creatinine patient was told Lasix nephrology will be consulted -Sepsis secondary to pneumonia presently, he appeared to be bilateral -Congestive heart failure ejection fraction is not known because of which I can't say patient has systolic dysfunction or diastolic dysfunction although patient is in acute exacerbation: Continue with Lasix oral -Coronary artery disease -Atrial fibrillation appears to be paroxysmal presently pacer rhythm with bifascicular block. Continue with the rate control medications. 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
[2020-10-08 11:49] LABS: Glucose,Whole Blood 77 mg/dL (75-99)
[2020-10-08] MEDS ORDERED: POTASSIUM CHLORIDE ER 10 MEQ TAB.ER.PRT PO SCH (12:00)
[2020-10-08] MEDS: FINASTERIDE 5 MG TAB PO SCH (12:31)
[2020-10-08] MEDS: ASCORBIC ACID 500 MG TAB PO SCH (12:31)
[2020-10-08] MEDS: FERROUS SULFATE 325 MG TAB PO SCH (12:31)
[2020-10-08] MEDS: ATORVASTATIN 20 MG TAB PO SCH (12:31)
--- NOTE | 2020-10-08 13:52 | ECHOF ---
Referral Reason:per orders MEASUREMENTS -------- HEIGHT: 172.7 cm WEIGHT: 84.8 kg BP: 103/53 RVIDd: 4.7 cm (< 3.3) IVSd: 1.3 cm (0.6 - 1.1) LVIDd: 6.0 cm (3.9 - 5.3) LVPWd: 1.3 cm (0.6 - 1.1) IVSs: 1.8 cm LVIDs: 5.1 cm LVPWs: 1.5 cm LA Diam: 5.3 cm (2.7 - 3.8) LAESV Index (A-L): 51.92 ml/m Ao Diam: 3.4 cm (2.0 - 3.7) MV EXCURSION: 15.488 mm (> 18.000) MV EF SLOPE: 28 mm/s (70 - 150) EPSS: 1.4 cm MV E Barney: 1.01 m/s MV DecT: 196 ms MV A Barney: 0.54 m/s MV E/A Ratio: 1.87 AV maxP.30 mmHg AV meanP.65 mmHg RAP: 5.00 mmHg RVSP: 57.98 mmHg FINDINGS -------- Paced rhythm. This was a technically adequate study. The left ventricle is mildly dilated. There is mild concentric left ventricular hypertrophy. Over all left ventricular systolic function is mild-moderately impaired with, an EF between 40 - 45 %. B son inferior LV wall motion is hypokinetic. The right ventricle is severely enlarged. LA is severely dilated >40 ml/m2 The right atrium is normal in size. Interatrial and interventricular septum intact. There is moderate aortic valve sclerosis. There is mild aortic regurgitation. There is moderate a ortic stenosis present. Peak/mean gradient across the Aortic Valve is 56.30mmHg / 30.65mmHg. Mild mitral annular calcification present. [id number] mitral regurgitation is present. Moderate tricuspid regurgitation present. There is severe pulmonary hypertension. The right ventr icular systolic pressure, as measured by Doppler, is 57.98mmHg. The pulmonic valve was not well visualized. The aortic root size is normal. There is no pericardial effusion. CONCLUSIONS -------- 1. This was a technically adequate study. 2. The left ventricle is mildly dilated. 3. There is mild concentric left ventricular hypertrophy. 4. Overall left ventricular systolic function is mild-moderately impaired with, an EF between 40 - 45 %. 5. Basal inferior LV wall motion is hypokinetic. 6. The right ventricle is severely enlarged. 7. LA is severely dilated >40 ml/m2 8. There is moderate aortic valve sclerosis. 9. There is mild aortic regurgitation. 10. There is moderate aortic stenosis present. 11. Peak/mean gradient across the Aortic Valve is 56.30mmHg / 30.65mmHg. 12. Mild mitral annular calcification present. 13. [id number] mitral regurgitation is present. 14. Moderate tricuspid regurgitation present. 15. There is severe pulmonary hypertension. 16. The right ventricular systolic pressure, as measured by Doppler, is 57.98mmHg. 17. There is no pericardial effusion. [employer] WORKER: Alesia Eli RDCS
[2020-10-08] MEDS ORDERED: FUROSEMIDE 40 MG TAB PO SCH (16:00)
[2020-10-08 16:45] LABS: Glucose,Whole Blood 107 mg/dL (75-99)
[2020-10-08 20:20] LABS: Glucose,Whole Blood 118 mg/dL (75-99)
[2020-10-09 07:48] LABS: HGB 9.9 gm/dL (13.0-17.5); MCHC 32.9 g/dL (31.0-37.0); MCV 109.6 fL (80.0-100.0); Macrocytosis Marked; Mean Platelet Volume 8.6; Platelet Count 151 k/uL (150-450); RBC 2.74 m/uL (4.30-5.90); RDW 14.3 % (11.5-15.5); WBC 9.3 k/uL (3.8-10.6)
[2020-10-09 08:02] LABS: INR 1.9 (<1.2); Prothrombin Time 18.6 sec (9.0-12.0)
[2020-10-09 08:28] LABS: Albumin 2.4 g/dL (3.5-5.0); Calcium 8.1 mg/dL (8.4-10.2); Magnesium 1.9 mg/dL (1.6-2.3); Potassium 4.5 mmol/L (3.5-5.1); Total Bilirubin 0.6 mg/dL (0.2-1.3)
[2020-10-09] MEDS: AZITHROMYCIN 500 MG TAB PO SCH (09:10)
[2020-10-09] MEDS: AMIODARONE 200 MG TAB PO SCH (09:10)
[2020-10-09] MEDS: ERGOCALCIFEROL 1,250 MCG (50,000 IU) CAPSULE PO SCH (09:11)
[2020-10-09] MEDS: SODIUM BICARBONATE TAB 650 MG TAB PO SCH ×2 (09:11→19:42)
[2020-10-09] MEDS: EZETIMIBE 10 MG TAB PO SCH ×2 (09:11→19:42)
[2020-10-09] MEDS: METOPROLOL SUCCINATE (ER) 25 MG TAB.ER.24H PO SCH ×2 (09:11→19:42)
--- NOTE | 2020-10-09 10:40 | P.PN ---
Subjective 85-year-old male came in with complaints of for short of breath restarted yesterday along with cough nonproductive. Because of her shortness of breath and not feeling well patient didn't take his a Lasix yesterday and today. Patient the felt more short of breath and also complained of orthopnea and denied any proximal nocturnal dyspnea. Patient does a valid highly elevated BNP I didn't clearly appreciate JVD. Patient does have some pedal edema does have history of congestive heart failure although it does not have any echocardiogram available at this time. Although patient does tell me that he has history of congestive heart failure. Patient BNP is around 24,000. Patient was also having fever. Patient had a chest x-ray which showed bilateral lower lobe infiltrates with possibly of pneumonia, pleural effusions bilaterally and the pulmonary venous congestion on the x-ray did patient appears to have both CHF as well as pneumonia. Patient has creatinine of 2.4 baseline appears to be around 2 in 2019. does have history of atrial fibrillation on Coumadin, unsure whether patient has valvular A. fib patient's INR is therapeutic Patient has an AICD in place as well patient does have leukocytosis. Patient had lactic acid osis because of which he initially received the IV fluids is lactic is doses resolved. 10/08/2020 Patient is feeling better patient is saturating at 98% on 2 L of oxygen we can cut down the oxygen. Patient didn't have much of urine output, nephrology will be consulted patient has was in creatinine to 3.16 patient will be switched to 40 mg twice a day of oral Lasix. Patient remains on IV antibiotics pulmonology and cardiology will evaluate the patient. 10/09/2020 Patient's serum creatinine continue to get worse Lasix will be discontinued nephrology was consulted. Patient with creatinine is presently 3.96. Patient is saturating at 95% on 2 L of oxygen. Patient is feeling tired Constitutional: Denied any fever. Cardio vascular: denied any chest pain, palpitations Gastrointestinal denied any nausea vomiting Pulmonary: Shortness of breath improved Neurologic denied any new focal deficits All inpatient medications were reviewed and appropriate changes in these medications as dictated in the interval history and assessment and plan. Objective - Vital Signs Vital signs: Vital Signs Temp 98.2 F 10/09/20 08:00 Pulse 82 10/09/20 08:00 Resp 18 10/09/20 08:00 BP 114/66 10/09/20 08:00 Pulse Ox 95 10/09/20 08:00 Intake & Output 10/08/20 10/09/20 10/09/20 18:59 06:59 18:59 Intake Total 830 Output Total 200 Balance 830 -200 Weight 83.2 kg Intake: Intake, IV Titration 50 Amount cefTRIAXone 2 gm In 50 Sodium Chloride 0.9% 50 ml @ 100 mls/hr IVPB Q24HR [facility] Rx#:[id number] Oral 780 Output: Urine 200 Other: Voiding Method Urinal Urinal Bedside Commode Urinal # Voids 4 # Bowel Movements 1 - Exam PHYSICAL EXAMINATION: GENERAL: The patient is alert and oriented x3, not in any acute distress. Well developed, well nourished. HEENT: Pupils are round and equally reacting to light. EOMI. No scleral icterus. No conjunctival pallor. Normocephalic, atraumatic. No pharyngeal erythema. No thyromegaly. CARDIOVASCULAR: S1 and S2 present. No murmurs, rubs, or gallops. Unable to assess JVD PULMONARY: Chest is clear to auscultation, no wheezing or crackles. ABDOMEN: Soft, nontender, nondistended, normoactive bowel sounds. No palpable organomegaly. MUSCULOSKELETAL: No joint swelling or deformity. EXTREMITIES: No cyanosis, clubbing, pedal edema resolved NEUROLOGICAL: Gross neurological examination did not reveal any focal deficits. SKIN: No rashes. - Labs CBC & Chem 7: 10/09/20 07:16 10/09/20 07:16 Labs: Abnormal Lab Results - Last 24 Hours (Table) 10/08/20 10/08/20 10/09/20 Range/Units 16:43 20:18 07:16 RBC (4.30-5.90) m/uL Hgb (13.0-17.5) gm/dL Hct (39.0-53.0) % MCV (80.0-100.0) fL MCH (25.0-35.0) pg Macrocytosis PT 18.6 H (9.0-12.0) sec INR 1.9 H (<1.2) Sodium (137-145) mmol/L BUN (9-20) mg/dL Creatinine (0.66-1.25) mg/dL POC Glucose (mg/dL) 107 H 118 H (75-99) mg/dL Calcium (8.4-10.2) mg/dL AST (17-59) U/L ALT (4-49) U/L Total Protein (6.3-8.2) g/dL Albumin (3.5-5.0) g/dL 10/09/20 10/09/20 Range/Units 07:16 07:16 RBC 2.74 L (4.30-5.90) m/uL Hgb 9.9 L (13.0-17.5) gm/dL Hct 30.0 L (39.0-53.0) % MCV 109.6 H (80.0-100.0) fL MCH 36.0 H (25.0-35.0) pg Macrocytosis Marked A PT (9.0-12.0) sec INR (<1.2) Sodium 134 L (137-145) mmol/L BUN 52 H (9-20) mg/dL Creatinine 3.96 H (0.66-1.25) mg/dL POC Glucose (mg/dL) (75-99) mg/dL Calcium 8.1 L (8.4-10.2) mg/dL AST 169 H (17-59) U/L ALT 117 H (4-49) U/L Total Protein 5.0 L (6.3-8.2) g/dL Albumin 2.4 L (3.5-5.0) g/dL Microbiology - Last 24 Hours (Table) 10/07/20 11:50 Blood Culture - Preliminary Blood No Growth after 24 hours 10/07/20 11:50 Blood Culture - Preliminary Blood No Growth after 24 hours Assessment and Plan Plan: --Shortness of breath: Patient appears to have both pneumonia and CHF. CHF is secondary to noncompliance with his medications patient was started on Rocephin and azithromycin . Patient's serum creatinine continue to get worse because of which Lasix will be discontinued nephrology was consulted. -Sepsis secondary to pneumonia presently, he appeared to be bilateral -Congestive heart failure chronic systolic dysfunction with EF of around 40-45% with acute exacerbation on admission. -Severe pulmonary hypotension with RVSP of around 58 -Coronary artery disease -Atrial fibrillation appears to be paroxysmal presently pacer rhythm with bifascicular block. Continue with the rate control medications. INR is bit subtherapeutic didn't receive Coumadin yesterday. 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
--- NOTE | 2020-10-09 11:29 | US ---
EXAMINATION TYPE: US kidneys/renal and bladder DATE OF EXAM: 10/09/2020 COMPARISON: NONE CLINICAL HISTORY: tamara. EXAM MEASUREMENTS: Right Kidney: 11.2 x 5.9 x 6.4 cm Left Kidney: 11.5 x 6.4 x 6.3 cm Limited visualization of left kidney due to patient's limited mobility. Right Kidney: No hydronephrosis or masses seen Left Kidney: No hydronephrosis or masses seen Bladder: wnl Incidental note is made of free fluid in the pelvis and a small amount of free fluid by liver. IMPRESSION: 1. Some minimal free fluid within the abdomen and pelvis is noted. 2. Renal ultrasound is otherwise unremarkable.
--- NOTE | 2020-10-09 11:50 | P.NPCON ---
History of Present Illness - Reason for Consult acute renal failure, chronic renal failure - History of Present Illness Reason for consultation: Acute kidney injury and chronic kidney disease History of present illness: Patient is a 85-year-old male seen in renal consultation for acute kidney injury and chronic kidney disease. Patient has chronic kidney disease stage IV secondary to nephrosclerosis and possible atheroemboli post cardiac catheterization in 2017. Patient's baseline creatinine has been around 2.5. This admission his creatinine was 2.43 and is up to 3.96 today. Patient presented to the hospital on 10/07/2020 with shortness of breath. He denies chest pain. No cough. He tested negative for coronavirus. Chest x-ray was suggestive of fluid overload as well as pneumonia. He is currently receiving antibiotics. He was also on IV Lasix initially and was then transitioned over to oral diuretics. All diuretics were stopped yesterday due to worsening renal function. Patient's echocardiogram revealed ejection fraction of 40-45% with mild to moderate mitral regurgitation, moderate aortic stenosis, moderate tricuspid regurgitation. He was also noted to have severe pulmonary h ypertension. Renal ultrasound revealed normal sized kidneys without any evidence of hydronephrosis. He is currently on 2 L nasal cannula. Blood pressure stable. No history of diabetes. Denies use of nonsteroidals. Vital signs are stable. General: The patient appeared well nourished and normally developed. HEENT: Head exam is unremarkable. LUNGS: Breath sounds decreased. HEART: Rate and Rhythm are regular. ABDOMEN: Soft, no distention noted. EXTREMITITES: Trace edema. 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 Past Anesthesia/Blood Transfusion Reactions: No Reported Reaction Type of Cardiac Device: Permanent Pacemaker, AICD Device Placement Date:: 09/28/11 Past Psychological History: No Psychological Hx Reported Additional Psychological History / Comment(s): uses a walker. . Smoking Status: Never smoker Past Alcohol Use History: Rare Additional Past Alcohol Use History / Comment(s): . Past Drug Use History: None Reported - Past Family History Mother Family Medical History: Cancer Additional Family Medical History / Comment(s): Mother had leukemia. She at the age of 80 yrs. Father Family Medical History: Osteoarthritis (OA) Additional Family Medical History / Comment(s): Father had severe arthritis. He in his late 70's Medications and Allergies Home Medications Medication Instructions Recorded Confirmed Type Amiodarone [Cordarone] 200 mg PO DAILY 01/16/16 10/07/20 History Ezetimibe [Zetia] 10 mg PO BID 01/16/16 10/07/20 History Finasteride [Proscar] 5 mg PO DAILY@1200 01/16/16 10/07/20 History Furosemide [Lasix] 40 mg PO DAILY@1200 01/16/16 10/07/20 History Potassium Chloride ER [K-Dur 10] 10 meq PO DAILY@1200 01/16/16 10/07/20 History Ascorbic Acid [Vitamin C] 1,000 mg PO DAILY@1200 07/24/19 10/07/20 History Atorvastatin [Lipitor] 20 mg PO DAILY@1200 07/24/19 10/07/20 History Black Reyes 1 cap PO BID@1200,2100 07/24/19 10/07/20 History Turmeric Root Extract [Turmeric] 500 mg PO DAILY 07/24/19 10/07/20 History Vitamin B Complex 1 cap PO W/SUPPER 07/24/19 10/07/20 History Sodium Bicarbonate Tab 650 mg PO BID #30 tab 07/29/19 10/07/20 Rx Krill Oil 500 mg PO DAILY 10/15/19 10/07/20 History Metoprolol Succinate (ER) [Toprol 25 mg PO BID 10/15/19 10/07/20 History XL] Warfarin [Coumadin] 1.5 mg PO SUMO10/15/19 10/09/20 History Warfarin [Coumadin] 3 mg PO 10/15/19 10/07/20 History Ergocalciferol (Vitamin D2) 1,250 mcg PO WE 10/07/20 10/07/20 History [Drisdol (50,000 Iu)] Ferrous Sulfate [Iron] 325 mg PO DAILY@1200 10/07/20 10/07/20 History Focus Select 2 tab PO DAILY 10/07/20 10/07/20 History Glucosam/George-Msm1/C/Roe/Bosw 1 tab PO BID 10/07/20 10/07/20 History [Fbrrvinyrwt-Kkjxstljktl-RVR Tb] Levothyroxine Sodium [Synthroid] 100 mcg PO MOTUWETHFRSA 10/07/20 10/07/20 History Oil Of Oregano 1,500 mg PO DAILY 10/07/20 10/07/20 History Ubidecarenone [Co Q-10] 400 mg PO DAILY 10/07/20 10/07/20 History Allergies Allergy/AdvReac Type Severity Reaction Status Date / Time morphine Allergy Nausea & Verified 10/07/20 13:06 Vomiting Physical Exam Vitals: Vital Signs Temp Pulse Resp BP Pulse Ox 10/09/20 08:00 98.2 F 82 18 114/66 95 10/09/20 04:00 77 20 105/54 94 L 10/09/20 00:00 58 L 18 95 10/08/20 20:00 99.5 F 75 18 114/56 93 L 10/08/20 16:00 70 18 107/54 95 10/08/20 14:00 60 16 10/08/20 12:00 60 16 115/53 92 L Intake and Output 10/08/20 10/09/20 10/09/20 22:59 06:59 14:59 Intake Total 590 Output Total 200 Balance 590 -200 Intake: Intake, IV Titration 50 Amount cefTRIAXone 2 gm In 50 Sodium Chloride 0.9% 50 ml @ 100 mls/hr IVPB Q24HR [facility] Rx#:[id number] Oral 540 Output: Urine 200 Other: Voiding Method Urinal Urinal Bedside Commode Urinal # Voids 4 # Bowel Movements 1 Weight 83.2 kg Results - Lab Results Most recent lab results Calcium 8.1 mg/dL (8.4-10.2) L 10/09/20 07:16 Phosphorus 4.3 mg/dL (2.5-4.5) 10/07/20 17:44 Magnesium 1.9 mg/dL (1.6-2.3) 10/09/20 07:16 10/09/20 07:16 10/09/20 07:16 Assessment and Plan Plan: Assessment: 1. Acute kidney injury secondary to ATN secondary to cardiorenal syndrome. Creatinine 2.43 on admission and is 3.96 today. No evidence of hydronephrosis noted on kidney ultrasound. 2. Chronic kidney disease stage IV with baseline creatinine near 2.5 secondary to nephrosclerosis and possible atheroemboli post cardiac catheterization in 2017. 3. Acute on chronic diastolic CHF and mild to moderate mitral regurgitation, moderate tricuspid regurgitation, moderate aortic stenosis. 4. Severe pulmonary hypertension. 5. A. fib with sick sinus syndrome status post pacemaker placement. Plan: Hold diuretics today. Check chest x-ray. Check bladder scan to rule out urinary retention. Avoid nephrotoxins. Strict is and os. Continue to monitor renal function and urine output closely. I did discuss the potential need for renal replacement therapy if renal function continues to worsen. Patient states that he does not want any form of renal re placement therapy if and when needed. Thank you for the consultation. I will continue to follow patient with you during his hospital stay.
[2020-10-09] MEDS: FINASTERIDE 5 MG TAB PO SCH (12:47)
[2020-10-09] MEDS: ATORVASTATIN 20 MG TAB PO SCH (12:47)
[2020-10-09] MEDS: FERROUS SULFATE 325 MG TAB PO SCH (12:47)
[2020-10-09] MEDS: ASCORBIC ACID 500 MG TAB PO SCH (12:47)
--- NOTE | 2020-10-09 14:33 | PN ---
PROGRESS NOTE Mr. Jaswinder Jackman is resting comfortably today. He has no chest pain or shortness of breath. He had an echocardiogram yesterday which revealed an ejection fraction of 40- 45 percent with moderate aortic valve stenosis, mean gradient of 30 with moderate pulmonary hypertension. He is feeling better today. Has no chest pain. His breathing seems to be better. Plan is to continue current medical regimen and gradual increase in activity and start some discharge planning. We will continue his current medical regimen and he is also anticoagulated. Vitals are stable. There is JVD of 1 cm. No carotid bruit. S1-S2 heard normally. Ejection systolic murmur is audible. Lungs reveal improved air entry. Abdomen is soft. Lower extremities reveal mild edema. Central nervous system grossly within normal limits. MMODL / IJN: [id number] /
[2020-10-09] MEDS ORDERED: WARFARIN 2 MG TAB PO ONE (18:00)
[2020-10-09] MEDS ORDERED: WARFARIN 0.5 MG TAB PO ONE (18:00)
[2020-10-10] MEDS: LEVOTHYROXINE 100 MCG TAB PO SCH (06:36)
[2020-10-10 08:17] LABS: INR 1.9 (<1.2); Prothrombin Time 18.6 sec (9.0-12.0)
--- NOTE | 2020-10-10 08:39 | XR ---
EXAMINATION TYPE: XR chest 1V DATE OF EXAM: 10/10/2020 COMPARISON: Chest x-ray 10/08/2020 HISTORY: Shortness of breath TECHNIQUE: Single frontal view of the chest is obtained. FINDINGS: There is no evident pneumothorax. Bibasilar increased attenuation persists. Heart is likel y enlarged. Generators present in left pectoral region, there are leads in the right atrium, right ve ntricle. Aorta is dense. Interstitium is increased. Hemidiaphragms remain obscured. IMPRESSION: Correlate for congestive heart failure with basilar effusions. Pneumonia not excluded.
[2020-10-10 08:40] LABS: Calcium 8.3 mg/dL (8.4-10.2)
[2020-10-10 08:52] LABS: Potassium 4.8 mmol/L (3.5-5.1)
[2020-10-10] MEDS: AZITHROMYCIN 500 MG TAB PO SCH (09:50)
[2020-10-10] MEDS: EZETIMIBE 10 MG TAB PO SCH ×2 (09:50→20:18)
[2020-10-10] MEDS: METOPROLOL SUCCINATE (ER) 25 MG TAB.ER.24H PO SCH ×2 (09:50→20:18)
[2020-10-10] MEDS: ASCORBIC ACID 500 MG TAB PO SCH (09:50)
[2020-10-10] MEDS: SODIUM BICARBONATE TAB 650 MG TAB PO SCH ×2 (09:50→20:18)
[2020-10-10] MEDS: AMIODARONE 200 MG TAB PO SCH (09:50)
--- NOTE | 2020-10-10 12:04 | P.PN ---
Subjective Patient is seen in follow-up for acute kidney injury on chronic kidney disease. Renal function worsening. More edematous today. Currently on a CPAP. Blood pressure 101/59. Urine output not accurately documented. Vital signs are stable. General: The patient appeared well nourished and normally developed. HEENT: Head exam is unremarkable. Neck is without jugular venous distension. LUNGS: Breath sounds decreased. HEART: Rate and Rhythm are regular. ABDOMEN: Soft, no distention. EXTREMITITES: 2+ edema. Chronic kidney disease noted. Objective - Vital Signs Vital signs: Vital Signs Temp 99.8 F H 10/10/20 04:00 Pulse 82 10/10/20 04:00 Resp 18 10/10/20 04:00 BP 101/59 10/10/20 04:00 Pulse Ox 93 L 10/10/20 04:00 Intake & Output 10/09/20 10/10/20 10/10/20 18:59 06:59 18:59 Intake Total 1200 300 118 Output Total 50 Balance 1200 250 118 Weight 84 kg Intake: Oral 1200 300 118 Output: Urine 50 Other: Voiding Method Bedside Commode Bedside Commode Urinal Urinal # Voids 1 - Labs CBC & Chem 7: 10/09/20 07:16 10/10/20 06:29 Labs: Abnormal Lab Results - Last 24 Hours (Table) 10/10/20 10/10/20 Range/Units 06:29 06:29 PT 18.6 H (9.0-12.0) sec INR 1.9 H (<1.2) Sodium 133 L (137-145) mmol/L Carbon Dioxide 18 L (22-30) mmol/L BUN 65 H (9-20) mg/dL Creatinine 4.60 H (0.66-1.25) mg/dL Calcium 8.3 L (8.4-10.2) mg/dL Microbiology - Last 24 Hours (Table) 10/07/20 11:50 Blood Culture - Preliminary Blood No Growth after 48 hours 10/07/20 11:50 Blood Culture - Preliminary Blood No Growth after 48 hours Assessment and Plan Plan: Assessment: 1. Acute kidney injury secondary to ATN secondary to cardiorenal syndrome. Creatinine 2.43 on admission and is 4.6 today. No evidence of hydronephrosis noted on kidney ultrasound. 2. Chronic kidney disease stage IV with baseline creatinine near 2.5 secondary to nephrosclerosis and possible atheroemboli post cardiac catheterization in 2017. 3. Acute on chronic diastolic CHF and mild to moderate mitral regurgitation, moderate tricuspid regurgitation, moderate aortic stenosis. 4. Severe pulmonary hypertension. 5. A. fib with sick sinus syndrome status post pacemaker placement. 6. Hypervolemic hyponatremia. Plan: Start Lasix drip at 10 mL an hour. Insert Pinto catheter. Strict intake and output. Avoid nephrotoxins. Continue to monitor renal function and urine output. Patient has refused any form of renal replacement therapy.
[2020-10-10] MEDS: ATORVASTATIN 20 MG TAB PO SCH (13:11)
[2020-10-10] MEDS: FERROUS SULFATE 325 MG TAB PO SCH (13:11)
[2020-10-10] MEDS: FUROSEMIDE 100 MG in SODIUM CHLORIDE 0.9% 90 ML IV SCH ×2 (13:11→22:01)
[2020-10-10] MEDS: FINASTERIDE 5 MG TAB PO SCH (13:13)
--- NOTE | 2020-10-10 14:50 | P.PN ---
Subjective This is a pleasant 85-year-old male past medical history significant for sick sinus syndrome status post permanent pacemaker, chronic atrial fibrillation (on coumadin), hypertension, hyperlipidemia, moderate aortic stenosis, chronic heart failure with EF 40-45% Patient follows in the office with Dr Khan. We have been asked to see in consultation for elevated troponin and congestive heart failure. Patient had a chest x-ray which showed bilateral lower lobe infiltrates with possibly of pneumonia, pleural effusions bilaterally and the pulmonary venous congestion. Echocardiogram revealed EF 40-45%, basal. LV wall is hypokinetic, right ventricle is severely enlarged, LA severely dilated, moderate aortic stenosis with peak/mean gradient 56.30mmHg/30.65mmHg, mild to moderate MR, moderate TR, severe pulmonary hypertension. RVSP 58mmHg. 10/10/20: Patient seen and examined at bedside, no acute distress. Increased bilateral lower extremity swelling. patient in atrial fibrillation HR 50-70s. Patient currently being maintained on amiodarone 20 mg daily, atorvastatin 20 mg daily, Zetia 10 mg twice a, metoprolol succinate 25 mg twice a day, coumadin PO. PHYSICAL EXAMINATION Blood pressure 106/90 heart rate 76 afebrile and maintaining oxygen saturation 91% on CPAP CONSTITUTIONAL: No apparent distress. HEENT: Head is normocephalic. +JVD. No carotid bruit. CHEST EXAMINATION: Lungs are clear to auscultation. No chest wall tenderness is noted on palpation or with deep breathing. HEART EXAMINATION: Regular rate and rhythm. S1, S2 heard.Systolic murmur No gallops or rub. ABDOMEN: Soft, nontender. Positive bowel sounds. EXTREMITIES: 2+ peripheral pulses,2+ bilateral lower extremity edema and no calf tenderness. NEUROLOGIC EXAMINATION: Patient is awake, alert and oriented x2. ASSESSMENT Elevated troponin- does not suggest myocardial injury, could be related to underlying aortic stenosis and hypoxia. Shortness of breath, most likely multifactorial due to pneumonia and congestive heart failure Acute on chronic heart failure EF 40-45% Possible pneumonia seen on chest xray- patient started on Rocephin and azithromycin Sick sinus syndrome s/p pacemaker Chronic atrial fibrillation on coumadin Hypertension Hyperlipidemia Moderate aortic stenosis Acute on Chronic Kidney Disease- nephrology following PLAN Nephrology following and managing diuretics. Patient started on lasix drip today. Recommendations appreciated. Continue current medical therapy. No further recommendations from cardiology perspective Monitor renal function and electrolytes Nurse Practitioner note has been reviewed, I agree with a documented findings and plan of care. Patient was seen and examined. Objective - Vital Signs Vital signs: Vital Signs Temp 97.5 F L 10/10/20 08:00 Pulse 76 10/10/20 08:00 Resp 20 10/10/20 08:00 BP 106/90 10/10/20 08:00 Pulse Ox 91 L 10/10/20 08:00 Intake & Output 10/09/20 10/10/20 10/10/20 18:59 06:59 18:59 Intake Total 1200 300 118 Output Total 50 Balance 1200 250 118 Weight 84 kg Intake: Oral 1200 300 118 Output: Urine 50 Other: Voiding Method Bedside Commode Bedside Commode Bedside Commode Urinal Urinal Urinal # Voids 1 - Labs CBC & Chem 7: 10/09/20 07:16 10/10/20 06:29 Labs: Abnormal Lab Results - Last 24 Hours (Table) 10/10/20 10/10/20 Range/Units 06:29 06:29 PT 18.6 H (9.0-12.0) sec INR 1.9 H (<1.2) Sodium 133 L (137-145) mmol/L Carbon Dioxide 18 L (22-30) mmol/L BUN 65 H (9-20) mg/dL Creatinine 4.60 H (0.66-1.25) mg/dL Calcium 8.3 L (8.4-10.2) mg/dL Microbiology - Last 24 Hours (Table) 10/07/20 11:50 Blood Culture - Preliminary Blood No Growth after 72 hours 10/07/20 11:50 Blood Culture - Preliminary Blood No Growth after 72 hours
--- NOTE | 2020-10-10 17:56 | PN ---
PROGRESS NOTE DATE OF SERVICE: 10/10/2020 This 85-year-old gentleman who was admitted with CHF, acute exacerbation, acute on chronic systolic dysfunction, ejection fraction 40% to 45%, as well as aortic stenosis, is being closely monitored. The patient is suspected to have pneumonia, also. The most recent chest x-ray, which was reviewed personally by me, showed right pleural effusion and some left pleural effusion, right more than the left. Cardiology and Nephrology are following the patient closely. The most recent creatinine is 4.60. The patient is on empiric antibiotics. The patient is currently on Lasix drip. Otherwise, the patient is on warfarin as well. Past medical history reviewed. REVIEW OF SYSTEMS: CARDIOVASCULAR SYSTEM: As mentioned earlier. RESPIRATORY SYSTEM: As mentioned earlier. GI: As mentioned earlier. : No dysuria or retention. NERVOUS SYSTEM: No numbness, weakness. CURRENT MEDICATIONS: Reviewed. They include Cordarone, vitamin C, Lipitor, Zithromax, Rocephin, Zetia, ferrous sulfate. Doses are reviewed. PHYSICAL EXAMINATION: Patient is alert, oriented x2. Pulse 76, blood pressure 106/90, respiration 23, temperature 97.4, pulse ox 91% on CPAP. HEENT: Conjunctivae normal. NECK: No jugular venous distention. CARDIOVASCULAR SYSTEM: S1, S2 muffled. RESPIRATORY SYSTEM: Breath sounds diminished at the bases. Scattered rhonchi and crackles. ABDOMEN: Soft, non-tender. NERVOUS SYSTEM: Diffusely weak. LABS: WBC 9.3, hemoglobin 9.9. INR 1.9, sodium 134, creatinine 3.96. ASSESSMENT: 1. Congestive heart failure, acute exacerbation, with acute on chronic systolic dysfunction, ejection fraction 40% to 45%. 2. Possible acute pneumonia, Gram-negative. 3. Acute kidney injury secondary to acute tubular necrosis with acute renal failure and cardiorenal syndrome. 4. Chronic kidney disease, stage 4 baseline. 5. Sepsis secondary to pneumonia. 6. Severe pulmonary hypertension. 7. History of coronary artery disease. 8. Atrial fibrillation, paroxysmal. 9. Hyperlipidemia. 10.Hypertension. 11.Sleep apnea. 12.Hypothyroidism. 13.Diabetic peripheral nephropathy. 14.Anemia, microcytic anemia of chronic disease. 15.Hyponatremia. 16.History of atrial fibrillation. 17.History of bladder cancer. 18.Obstructive sleep apnea, on CPAP. 19.History of Medina's palsy, right. 20.History of automated implantable cardioverter defibrillator. 21.Appendectomy. 22.Cholecystectomy. 23.NO CODE, NO CPR, NO VENT. RECOMMENDATIONS AND DISCUSSION: In this 85-year-old gentleman who presented with multiple complex medical issues, we will monitor the patient closely, continue the current medications, continue symptomatic treatment, continue with insulin drip. Monitor creatinine closely. Monitor fluid/electrolyte balance closely. Closely follow with multiple consultants. Prognosis guarded because of multiple complex medical issues. Ensure oxygenation. Repeat labs will be ordered. See orders for further details. Medications were reviewed. Discussed with staff as well as the patient. Further recommendations to follow. MMODL / IJN: [id number] /
[2020-10-10] MEDS ORDERED: WARFARIN 1.5 MG TAB PO SCH (18:00)
[2020-10-11] MEDS: LEVOTHYROXINE 100 MCG TAB PO SCH (06:48)
[2020-10-11 08:44] LABS: Basophils % (A) 0 %; Eosinophils % (A) 0 %; HCT 32.4 % (39.0-53.0); HGB 10.4 gm/dL (13.0-17.5); Lymphocytes # (A) 0.5 k/uL (1.0-4.8); Lymphocytes % (A) 7 %; MCH 35.6 pg (25.0-35.0); MCHC 32.2 g/dL (31.0-37.0); MCV 110.5 fL (80.0-100.0); Macrocytosis Marked; Mean Platelet Volume 8.9; Monocytes # (A) 0.7 k/uL (0-1.0); Monocytes % (A) 10 %; Neutrophils # (A) 5.7 k/uL (1.3-7.7); Neutrophils % (A) 80 %; Platelet Count 140 k/uL (150-450); RBC 2.93 m/uL (4.30-5.90); RDW 14.2 % (11.5-15.5); WBC 7.2 k/uL (3.8-10.6)
[2020-10-11 08:59] LABS: Calcium 8.2 mg/dL (8.4-10.2); Magnesium 2.1 mg/dL (1.6-2.3); Potassium 4.8 mmol/L (3.5-5.1)
[2020-10-11 09:11] LABS: INR 3.4 (<1.2); Prothrombin Time 32.4 sec (9.0-12.0)
[2020-10-11] MEDS: AZITHROMYCIN 500 MG TAB PO SCH (09:30)
[2020-10-11] MEDS: EZETIMIBE 10 MG TAB PO SCH ×2 (09:30→21:00)
[2020-10-11] MEDS: METOPROLOL SUCCINATE (ER) 25 MG TAB.ER.24H PO SCH ×3 (09:30→21:00)
[2020-10-11] MEDS: SODIUM BICARBONATE TAB 650 MG TAB PO SCH ×2 (09:30→21:00)
[2020-10-11] MEDS: FUROSEMIDE 100 MG in SODIUM CHLORIDE 0.9% 90 ML IV SCH ×3 (09:32→22:46)
[2020-10-11] MEDS: ASCORBIC ACID 500 MG TAB PO SCH (12:40)
[2020-10-11] MEDS: FERROUS SULFATE 325 MG TAB PO SCH (12:40)
[2020-10-11] MEDS: ATORVASTATIN 20 MG TAB PO SCH (12:40)
[2020-10-11] MEDS: FINASTERIDE 5 MG TAB PO SCH (12:40)
--- NOTE | 2020-10-11 13:31 | P.PN ---
Subjective Patient is seen in follow-up for acute kidney injury on chronic kidney disease. Renal function worsening. Urine output low. Maintained on Lasix drip. Currently on nasal cannula. Vital signs are stable. General: The patient appeared well nourished and normally developed. HEENT: On nasal cannula. LUNGS: Breath sounds decreased. HEART: Rate and Rhythm are regular. ABDOMEN: Soft, no distention. EXTREMITITES: 2+ edema. Chronic changes noted. Objective - Vital Signs Vital signs: Vital Signs Temp 97.8 F 10/10/20 20:16 Pulse 61 10/11/20 04:00 Resp 20 10/11/20 04:00 BP 102/55 10/11/20 06:47 Pulse Ox 93 L 10/11/20 04:00 Intake & Output 10/10/20 10/11/20 10/11/20 18:59 06:59 18:59 Intake Total 236 206.333 218 Output Total 200 Balance 236 6.333 218 Weight 85 kg Intake: Intake, IV Titration 88.333 100 Amount Furosemide 100 mg In 88.333 100 Sodium Chloride 0.9% 90 ml @ 10 MG/HR 10 mls/hr IV .Q10H [facility] Rx#: [id number] Oral 236 118 118 Output: Urine 200 Other: Voiding Method Bedside Commode Indwelling Catheter Urinal - Labs CBC & Chem 7: 10/11/20 08:11 10/11/20 08:11 Labs: Abnormal Lab Results - Last 24 Hours (Table) 10/11/20 10/11/20 10/11/20 Range/Units 08:11 08:11 08:11 RBC 2.93 L (4.30-5.90) m/uL Hgb 10.4 L (13.0-17.5) gm/dL Hct 32.4 L (39.0-53.0) % MCV 110.5 H (80.0-100.0) fL MCH 35.6 H (25.0-35.0) pg Plt Count 140 L (150-450) k/uL Macrocytosis Marked A PT 32.4 H (9.0-12.0) sec INR 3.4 H (<1.2) Sodium 132 L (137-145) mmol/L Carbon Dioxide 21 L (22-30) mmol/L BUN 75 H (9-20) mg/dL Creatinine 5.29 H (0.66-1.25) mg/dL Calcium 8.2 L (8.4-10.2) mg/dL Microbiology - Last 24 Hours (Table) 10/07/20 11:50 Blood Culture - Preliminary Blood No Growth after 72 hours 10/07/20 11:50 Blood Culture - Preliminary Blood No Growth after 72 hours Assessment and Plan Plan: Assessment: 1. Acute kidney injury secondary to ATN secondary to cardiorenal syndrome. Creatinine 2.43 on admission and is 5.29 today. No evidence of hydronephrosis noted on kidney ultrasound. 2. Chronic kidney disease stage IV with baseline creatinine near 2.5 secondary to nephrosclerosis and possible atheroemboli post cardiac catheterization in 2017. 3. Acute on chronic diastolic CHF and mild to moderate mitral regurgitation, moderate tricuspid regurgitation, moderate aortic stenosis. 4. Severe pulmonary hypertension. 5. A. fib with sick sinus syndrome status post pacemaker placement. 6. Hypervolemic hyponatremia. 7. Metabolic acidosis secondary to acute kidney injury. Better. Plan: Increase Lasix drip to 15 mL an hour. Add metolazone. Maintain Pinto catheter. Avoid nephrotoxins. Continue to monitor renal function and urine output. Patient had refused renal replacement therapy yesterday. Patient is not a very reliable historian. Case will be discussed with the family. If agreeable, will attempt renal replacement therapy although patient is at an ideal candidate. Overall prognosis guarded.
[2020-10-11] MEDS: AMIODARONE 200 MG TAB PO SCH (16:32)
[2020-10-11] MEDS: metOLazone 5 MG TAB PO SCH (17:37)
[2020-10-11] MEDS ORDERED: WARFARIN 0.5 MG TAB PO ONE (18:00)
[2020-10-11] MEDS ORDERED: WARFARIN 3 MG TAB PO SCH (18:00)
--- NOTE | 2020-10-11 19:58 | PN ---
PROGRESS NOTE DATE OF SERVICE: 10/11/2020 This 85-year-old gentleman who was admitted with CHF, acute exacerbation, also had possible pneumonia. The patient also has acute kidney injury. Patient is on Lasix drip at this time. Patient is being closely monitored. Nephrology is following the patient closely. The not available. No chest pain. No palpitations. Past medical history reviewed. REVIEW OF SYSTEMS: CARDIOVASCULAR SYSTEM: No angina, palpitations. RESPIRATORY SYSTEM: As mentioned earlier. GI: As mentioned earlier. : As mentioned earlier. NERVOUS SYSTEM: No numbness, weakness. CURRENT MEDICATIONS: Reviewed. They include Cordarone, vitamin C, Lipitor, Zithromax, Zetia, Proscar, Lasix drip at 15 mg/hour, Zaroxolyn, Coumadin, sodium bicarbonate. PHYSICAL EXAMINATION: Patient is alert, oriented x2. Pulse 52, blood pressure 105/53, respiration 20, temperature 98.9, pulse ox 97% on 3 L. HEENT: Conjunctivae normal. NECK: No jugular venous distention. CARDIOVASCULAR SYSTEM: S1, S2 muffled. RESPIRATORY SYSTEM: Breath sounds diminished at the bases. A few scattered rhonchi and crackles. ABDOMEN: Soft, non-tender. LEGS: No edema. No swelling. NERVOUS SYSTEM: Diffusely weak. LABS: WBC 7.2, hemoglobin 10.4, INR 3.4. Creatinine is 5.29. ASSESSMENT: 1. Congestive heart failure, acute exacerbation, with acute on chronic systolic dysfunction, ejection fraction 40% to 45%. 2. Possible acute pneumonia, Gram-negative. 3. Acute kidney injury secondary to acute tubular necrosis with possible cardiorenal syndrome. 4. Possible chronic kidney disease, stage 4 baseline. 5. Sepsis secondary to pneumonia, present on admission. 6. Severe pulmonary hypertension. 7. History of coronary artery disease. 8. Atrial fibrillation, paroxysmal. 9. Hyperlipidemia. 10.Hypertension. 11.Sleep apnea. 12.Hypothyroidism. 13.Diabetic peripheral neuropathy. 14.Anemia, microcytic anemia of chronic disease. 15.Hyponatremia. 16.History of atrial fibrillation. 17.History of bladder cancer. 18.Obstructive sleep apnea, on CPAP. 19.History of Medina's palsy, right. 20.History of automated implantable cardioverter defibrillator. 21.Appendectomy. 22.Cholecystectomy. 23.NO CODE, NO CPR, NO VENT. RECOMMENDATIONS AND DISCUSSION: I recommend to continue current medications, continue with the monitoring, symptomatic treatment. Continue with Lasix drip at this time. I will also repeat a chest x- ray tomorrow. The kidney function appears to be worsening at this time. I recommend very close and accurate intake/output charting. Guarded prognosis because of multiple complex medical issues. Further recommendations to follow. Repeat electrolytes. MMODL / IJN: [id number] / MTDD
[2020-10-12 05:11] VITALS: BP 107/55
[2020-10-12] MEDS: FUROSEMIDE 100 MG in SODIUM CHLORIDE 0.9% 90 ML IV SCH (05:29)
[2020-10-12] MEDS: LEVOTHYROXINE 100 MCG TAB PO SCH (06:27)
[2020-10-12 07:32] LABS: Hepatitis B Surface AB- Quant 3.5 mIU/mL; Hepatitis B Surface Antibody Non-Reactive (Non-Reactive); Hepatitis B Surface Antigen Non-Reactive (Non-Reactive)
--- NOTE | 2020-10-12 07:57 | XR ---
EXAMINATION TYPE: XR chest 1V portable DATE OF EXAM: 10/12/2020 COMPARISON: 10/10/2020 HISTORY: Shortness of breath TECHNIQUE: Single frontal view of the chest is obtained. FINDINGS: The heart is enlarged. Diffuse interstitial pattern bilateral infiltrate and pleural effus ion. Cardiac device noted. Arthropathy shoulders. Atherosclerotic change aorta. No pneumothorax. IMPRESSION: Correlate for CHF. Underlying pneumonia not excluded.
[2020-10-12 08:23] LABS: Magnesium 2.1 mg/dL (1.6-2.3)
--- NOTE | 2020-10-12 08:23 | P.GSCN ---
History of Present Illness Consult date: 10/12/20 Reason for Consult: Temporary hemodialysis catheter placement Requesting physician: Matthew Barnes History of present illness: This is a pleasant 85-year-old male patient who presented to the emergency department 5 days ago with shortness of breath and chills. His past medical history includes bladder cancer, diabetes mellitus, chronic kidney disease, obstructive sleep apnea with CPAP, peripheral vascular disease, back pain, arthritis, with a history of Medina's palsy, macular degeneration, coronary artery disease/atrial fibrillation with AICD, and hypothyroidism. He was diagnosed with pneumonia and acute pulmonary edema. During his admission he was noted to have acute kidney injury and was seen by nephrology. Renal functioning and can patient initially refused any renal replacement therapy, however family was contacted and vascular surgery was consulted for temporary hemodialysis catheter placement. He denies any current chest pain, he still has some shortness of breath, denies abdominal pain, nausea, or vomiting. Has no fevers or chills. Review of Systems A 14 point review systems was completed, all pertinent positives as stated in the HPI. Past Medical History Past Medical History: Atrial Fibrillation, Coronary Artery Disease (CAD), Cancer, Diabetes Mellitus, Eye Disorder, Hyperlipidemia, Hypertension, Neurologic Disorder, Osteoarthritis (OA), Renal Disease, Sleep Apnea/CPAP/BIPAP, Vascular Disorder Additional Past Medical History / Comment(s): 1992 bladder cancer with cauterization, ERICK with CPAP, bilateral varicosities with L leg worse, PVD, balance issues, low back pain, arthritis to back and knees bilaterally, Medina's palsy-R sided facial droop if tired, macular degeneration bilaterally, hypothyroid, stage 4 kidney disease History of Any Multi-Drug Resistant Organisms: None Reported Past Surgical History: AICD, Appendectomy, Cholecystectomy, Pacemaker Additional Past Surgical History / Comment(s): AICD/Pacer, 3 L ear myringotomies and tubes, sinus surgery, cardiac caths-no balooning or stenting, EGD/colon oscopy, bilateral cataracts with lenses, bladder cautery for CA. Past Anesthesia/Blood Transfusion Reactions: No Reported Reaction Type of Cardiac Device: Permanent Pacemaker, AICD Device Placement Date:: 09/28/11 Past Psychological History: No Psychological Hx Reported Additional Psychological History / Comment(s): uses a walker. . Smoking Status: Never smoker Past Alcohol Use History: Rare Additional Past Alcohol Use History / Comment(s): . Past Drug Use History: None Reported - Past Family History Mother Family Medical History: Cancer Additional Family Medical History / Comment(s): Mother had leukemia. She at the age of 80 yrs. Father Family Medical History: Osteoarthritis (OA) Additional Family Medical History / Comment(s): Father had severe arthritis. He in his late 70's Medications and Allergies Home Medications Medication Instructions Recorded Confirmed Type Ezetimibe [Zetia] 10 mg PO BID 01/16/16 10/07/20 History Finasteride [Proscar] 5 mg PO DAILY@1200 01/16/16 10/07/20 History Furosemide [Lasix] 40 mg PO DAILY@1200 01/16/16 10/07/20 History Potassium Chloride ER [K-Dur 10] 10 meq PO DAILY@1200 01/16/16 10/07/20 History Ascorbic Acid [Vitamin C] 1,000 mg PO DAILY@1200 07/24/19 10/07/20 History Atorvastatin [Lipitor] 20 mg PO DAILY@1200 07/24/19 10/07/20 History Black Reyes 1 cap PO BID@1200,2100 07/24/19 10/07/20 History Turmeric Root Extract [Turmeric] 500 mg PO DAILY 07/24/19 10/07/20 History Vitamin B Complex 1 cap PO W/SUPPER 07/24/19 10/07/20 History Sodium Bicarbonate Tab 650 mg PO BID #30 tab 07/29/19 10/07/20 Rx Krill Oil 500 mg PO DAILY 10/15/19 10/07/20 History Metoprolol Succinate (ER) [Toprol 25 mg PO BID 10/15/19 10/07/20 History XL] Warfarin [Coumadin] 1.5 mg PO FRSA 10/15/19 10/09/20 History Warfarin [Coumadin] 3 mg PO WETH 10/15/19 10/07/20 History Ergocalciferol (Vitamin D2) 1,250 mcg PO SUWE 10/07/20 10/07/20 History [Drisdol (50,000 Iu)] Ferrous Sulfate [Iron] 325 mg PO DAILY@1200 10/07/20 10/07/20 History Focus Select 2 tab PO DAILY 10/07/20 10/07/20 History Glucosam/George-Msm1/C/Roe/Bosw 1 tab PO BID 10/07/20 10/07/20 History [Fhqmqitdgcm-Acxmsgsmkqq-RMV Tb] Levothyroxine Sodium [Synthroid] 100 mcg PO MOTUWETHFRSA 10/07/20 10/07/20 History Oil Of Oregano 1,500 mg PO DAILY 10/07/20 10/07/20 History Ubidecarenone [Co Q-10] 400 mg PO DAILY 10/07/20 10/07/20 History Allergies Allergy/AdvReac Type Severity Reaction Status Date / Time morphine Allergy Nausea & Verified 10/07/20 13:06 Vomiting Surgical - Exam Vital Signs Pulse Resp BP Pulse Ox 59 L 16 127/58 94 L 10/07/20 11:19 10/07/20 11:19 10/07/20 11:19 10/07/20 11:19 General appearance: The patient is alert, oriented, appears in no acute distress. On bipap. HET: Head is normocephalic and atraumatic. Pupils are equal and reactive. Oropharynx is clear without lesions. Neck: Supple without lymphadenopathy. Trachea midline. Heart: S1 S2. Regular rate and rhythm. Lungs: Diminished. Abdomen: Soft, nontender, nondistended. Extremities: Normal skin color and turgor. Bilateral lower extremity edema. Palpable +2 radial pulses. Neurological: No focal deficits. Strength and sensation are grossly intact. Results - Labs 10/11/20 08:11 10/12/20 07:25 Abnormal Lab Results - Last 24 Hours (Table) 10/11/20 10/11/20 10/11/20 Range/Units 08:11 08:11 08:11 RBC 2.93 L (4.30-5.90) m/uL Hgb 10.4 L (13.0-17.5) gm/dL Hct 32.4 L (39.0-53.0) % MCV 110.5 H (80.0-100.0) fL MCH 35.6 H (25.0-35.0) pg Plt Count 140 L (150-450) k/uL Lymphocytes # 0.5 L (1.0-4.8) k/uL Macrocytosis Marked A PT 32.4 H (9.0-12.0) sec INR 3.4 H (<1.2) Sodium 132 L (137-145) mmol/L Carbon Dioxide 21 L (22-30) mmol/L BUN 75 H (9-20) mg/dL Creatinine 5.29 H (0.66-1.25) mg/dL Calcium 8.2 L (8.4-10.2) mg/dL Microbiology - Last 24 Hours (Table) 10/07/20 11:50 Blood Culture - Preliminary Blood No Growth after 96 hours 10/07/20 11:50 Blood Culture - Preliminary Blood No Growth after 96 hours Diabetes panel 10/11/20 Range/Units 08:11 Sodium 132 L (137-145) mmol/L Potassium 4.8 (3.5-5.1) mmol/L Chloride 99 (98-107) mmol/L Carbon Dioxide 21 L (22-30) mmol/L BUN 75 H (9-20) mg/dL Creatinine 5.29 H (0.66-1.25) mg/dL Glucose 89 (74-99) mg/dL Calcium 8.2 L (8.4-10.2) mg/dL Calcium panel 10/11/20 Range/Units 08:11 Calcium 8.2 L (8.4-10.2) mg/dL Pituitary panel 10/11/20 Range/Units 08:11 Sodium 132 L (137-145) mmol/L Potassium 4.8 (3.5-5.1) mmol/L Chloride 99 (98-107) mmol/L Carbon Dioxide 21 L (22-30) mmol/L BUN 75 H (9-20) mg/dL Creatinine 5.29 H (0.66-1.25) mg/dL Glucose 89 (74-99) mg/dL Calcium 8.2 L (8.4-10.2) mg/dL Adrenal panel 10/11/20 Range/Units 08:11 Sodium 132 L (137-145) mmol/L Potassium 4.8 (3.5-5.1) mmol/L Chloride 99 (98-107) mmol/L Carbon Dioxide 21 L (22-30) mmol/L BUN 75 H (9-20) mg/dL Creatinine 5.29 H (0.66-1.25) mg/dL Glucose 89 (74-99) mg/dL Calcium 8.2 L (8.4-10.2) mg/dL Assessment and Plan Assessment: 1. Acute kidney injury 2. Chronic kidney disease stage IV 3. Pulmonary hypertension 4. History of atrial fibrillation status post pacemaker 5. History of diabetes mellitus 6. History of obstructive sleep apnea on Bipap Plan: 1. Plan for temporary hemodialysis catheter placement 2. Continue to follow recommendations for hemodialysis per nephrology 3. Continue medical management per primary team Thank you for this consultation, we will continue to follow The impression and plan of care has been dictated as directed. Dr. Pinto I performed a history and examination of this patient, discussed the same with the dictator. I agree with the dictator's note ,documented as a scribe. Any additional findings or plans will be noted.
[2020-10-12 08:51] LABS: Prothrombin Time 58.1 sec (9.0-12.0)
[2020-10-12] MEDS: AMIODARONE 200 MG TAB PO SCH (11:23)
[2020-10-12] MEDS: EZETIMIBE 10 MG TAB PO SCH (11:23)
[2020-10-12] MEDS: AZITHROMYCIN 500 MG TAB PO SCH (11:23)
[2020-10-12] MEDS: ERGOCALCIFEROL 1,250 MCG (50,000 IU) CAPSULE PO SCH (11:23)
[2020-10-12] MEDS: ATORVASTATIN 20 MG TAB PO SCH (11:24)
[2020-10-12] MEDS: FINASTERIDE 5 MG TAB PO SCH (11:24)
[2020-10-12] MEDS: FERROUS SULFATE 325 MG TAB PO SCH (11:24)
[2020-10-12] MEDS: metOLazone 5 MG TAB PO SCH (11:24)
[2020-10-12] MEDS: ASCORBIC ACID 500 MG TAB PO SCH (11:24)
[2020-10-12] MEDS: METOPROLOL SUCCINATE (ER) 25 MG TAB.ER.24H PO SCH (11:24)
[2020-10-12] MEDS: SODIUM BICARBONATE TAB 650 MG TAB PO SCH (11:24)
[2020-10-12] MEDS ORDERED: MORPHINE SULFATE 4 MG/ML SYRINGE IV PRN (11:26)
[2020-10-12] MEDS ORDERED: MORPHINE SULFATE 2 MG/ML SYRINGE IVP ONE (11:26)
[2020-10-12] MEDS ORDERED: LORazepam 2 MG/ML INJ IV PRN (11:26)
[2020-10-12] MEDS ORDERED: MORPHINE SULFATE 2 MG/ML SYRINGE IV PRN (11:26)
[2020-10-12] MEDS ORDERED: SCOPOLAMINE 1.5MG/72HR PATCH TRANSDERM SCH (11:30)
[2020-10-12] MEDS ORDERED: MORPHINE SULFATE (100 MG/2 ML) 100 MG in SODIUM CHLORIDE 0.9% 100 ML IV SCH (11:30)
[2020-10-12 12:08] VITALS: PULSE 56; TEMP 96.7
--- NOTE | 2020-10-12 13:07 | P.PN ---
Subjective Patient is seen in follow-up for acute kidney injury on chronic kidney disease. Renal function worsening. Urine output low. Maintained on Lasix drip. Currently on CPAP. Vital signs are stable. General: The patient appeared well nourished and normally developed. HEENT: On nasal cannula. LUNGS: Breath sounds decreased. HEART: Rate and Rhythm are regular. ABDOMEN: Soft, no distention. EXTREMITITES: 2+ edema. Chronic changes noted. Objective - Vital Signs Vital signs: Vital Signs Temp 96.7 F L 10/12/20 11:45 Pulse 56 L 10/12/20 11:45 Resp 26 H 10/12/20 11:45 BP 107/55 10/12/20 04:00 Pulse Ox 90 L 10/12/20 04:00 Intake & Output 10/11/20 10/12/20 10/12/20 18:59 06:59 18:59 Intake Total 535 177 30.667 Output Total 200 Balance 535 -23 30.667 Weight 87 kg Intake: Intake, IV Titration 181 177 30.667 Amount Furosemide 100 mg In 181 177 30.667 Sodium Chloride 0.9% 90 ml @ 15 MG/HR 15 mls/hr IV .Q6H40M [facility] Rx#: [id number] Oral 354 0 Output: Urine 200 Uretheral (Pinto) 100 Other: Voiding Method Indwelling Catheter Indwelling Catheter # Bowel Movements 0 - Labs CBC & Chem 7: 10/11/20 08:11 10/12/20 07:25 Labs: Abnormal Lab Results - Last 24 Hours (Table) 10/11/20 10/12/20 10/12/20 Range/Units 08:11 07:25 07:25 Lymphocytes # 0.5 L (1.0-4.8) k/uL PT 58.1 H (9.0-12.0) sec INR 6.0 H* (<1.2) Sodium 132 L (137-145) mmol/L Carbon Dioxide 17 L (22-30) mmol/L BUN 83 H (9-20) mg/dL Creatinine 5.63 H (0.66-1.25) mg/dL Glucose 62 L (74-99) mg/dL Calcium 8.0 L (8.4-10.2) mg/dL Microbiology - Last 24 Hours (Table) 10/07/20 11:50 Blood Culture - Preliminary Blood No Growth after 96 hours 10/07/20 11:50 Blood Culture - Preliminary Blood No Growth after 96 hours Assessment and Plan Plan: Assessment: 1. Acute kidney injury secondary to ATN secondary to cardiorenal syndrome. Creatinine 2.43 on admission and is 5.63 today. No evidence of hydronephrosis noted on kidney ultrasound. 2. Chronic kidney disease stage IV with baseline creatinine near 2.5 secondary to nephrosclerosis and possible atheroemboli post cardiac catheterization in 2017. 3. Acute on chronic diastolic CHF and mild to moderate mitral regurgitation, moderate tricuspid regurgitation, moderate aortic stenosis. 4. Severe pulmonary hypertension. 5. A. fib with sick sinus syndrome status post pacemaker placement. 6. Hypervolemic hyponatremia. 7. Metabolic acidosis secondary to acute kidney injury. Plan: Dialysis catheter was placed this morning. However family has decided to proceed with comfort measures. I will sign off. Please call with any questions or concerns.
[2020-10-12 14:28] VITALS: RESP 40
[2020-10-12] MEDS ORDERED: WARFARIN 0.5 MG TAB PO ONE (18:00)
--- NOTE | 2020-10-12 23:29 | DS ---
DISCHARGE SUMMARY DATE OF SERVICE: 10/12/2020. PRIMARY CAUSE OF : Congestive heart failure acute exacerbation acute on chronic systolic dysfunction, ejection fraction 40-45 percent secondary to coronary atherosclerosis and other sclerotic heart disease. OTHER DIAGNOSES: 1. Possible acute pneumonia, gram-negative bilateral. 2. Acute kidney injury with acute on chronic tubular necrosis and possibly cardiorenal syndrome. 3. Possible chronic kidney stage 4 baseline. 4. Sepsis secondary to pneumonia, present on admission. 5. Severe pulmonary hypertension. 6. History of coronary artery disease. 7. Atrial fibrillation paroxysmal. 8. Hypertension. 9. Hyperlipidemia. 10.Sleep apnea. 11.Hypothyroidism. 12.History of diabetic peripheral neuropathy. 13.Anemia, microcytic anemia of chronic disease. 14.Hyponatremia. 15.History of atrial fibrillation. 16.History of bladder cancer. 17.Obstructive sleep apnea CPAP. 18.History of Medina's palsy, right. 19.History of AICD. 20.Appendectomy. 21.History of cholecystectomy. 22.NO CODE, CPR, NO VENT. HISTORY OF PRESENT ILLNESS: This 85-year-old gentleman with past medical history of multiple medical problems admitted with significant shortness of breath and CHF acute exacerbation. Patient possibly also had pneumonia also. The patient treated symptomatically. Patient was given Lasix drip. Multiple consultants including cardiology and nephrology saw the patient. A Lasix drip was used. Despite use of Lasix, the patient's condition worsened. Patient developed acute respiratory failure. The creatinine worsened to 5.6. The patient was inserted temporary dialysis catheter, but however, because of the patient's condition, the guardian was contacted and the patient was made comfort measures and the patient is admitted with the above mentioned illnesses. The prognosis remained extremely guarded throughout hospitalization. Please refer to the multiple progress notes and consult notes for further information. MMODL / IJN: [id number] /
--- NOTE | 2020-11-04 11:12 | CDI ---
Documentation Clarification Form Date: 11/04/2020 10:55:51 AM From: Edna NewellEspinozaROXY garduno, CCDS Admit Date: 10/07/2020 01:40:00 PM Patient Name: Jaswinder Jackman Visit Number: [id number] Discharge Date: 10/12/2020 06:34:00 PM ATTENTION: The Clinical Documentation Specialists (CDI) and [facility] Coding Staff appreciate your assistance in clarifying documentation. Please respond to the clarification below the line at the bottom and electronically sign. The CDI & [facility] Coding staff will review the response and follow-up if needed. Please note: Queries are made part of the Legal Health Record. If you have any questions, please contact the author of this message via ITS. Dr. Ryanne Ferraro: Per the 10/12 Discharge Summary: "Patient developed acute respiratory failure." Please provide additional clarification regarding respiratory failure based on the following clinical indicators. 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 Clinical Indicators: Presented to the ED on 10/07 with SOB, felt cold. ED Clinical Impression: Pneumonia, Acute Pulmonary Edema 10/07 VS: T 101.0, P 59, R 16-18 (SOB), BP 127/58, PO 94 RA - 94 2Lnc. 10/07 VS: R 26 (SOB), PO 96 on 30% CPAP 10/07 CXR: Clinical correlation recommended for congestive heart failure. Bibasilar infiltrates are present in atelectasis and pneumonia could be considered. 10/08 CXR: Stable lung findings with bibasilar infiltrates and small pleural effusions. 10/10 CXR: Correlate for congestive heart failure with basilar effusions. Pneumonia not excluded. 10/12 CXR: Correlate for CHF. Underlying pneumonia not excluded. Treatment 10/07: O2 2Lnc - 30% CPAP, IV Rocephin, IV Lasix drip, IV Azithromycin Patient was made Comfort Care on 10/12 and . Please clarify the specificity of acute respiratory failure: [ ] Acute Hypoxic Respiratory Failure [ ] Acute Hypercapnic Respiratory Failure [ ] Acute on Chronic Respiratory Failure, please specify Hypoxic or Hypercapnic [ ] Chronic Respiratory Failure, please specify Hypoxic or Hypercapnic [ ] Acute Respiratory Insufficiency [ ] Acute Respiratory Failure ruled out [ ] Other Diagnosis, please specify [ ] Unable to determine (Template Last Revised: August 2020) Acute Hypoxic Respiratory Failure MTDD
== END 2020-10-12 18:34 | disposition expired | DRG 871 ==
LOC: EC 11:17 → 3SCARD 13:40
PROVIDERS: ADMIT Internal Medicine; ATTEND Internal Medicine
PROC: 5A09357 Assistance with Respiratory Ventilation, Less than 24 Consecutive Hours, Continuous Positive Airway Pressure (ICD-10-PCS; principal; 2020-10-07)
PROC: 06HY33Z Insertion of Infusion Device into Lower Vein, Percutaneous Approach (ICD-10-PCS; 2020-10-12)
DX: A41.50 Gram-negative sepsis, unspecified (principal); J15.6 Pneumonia due to other Gram-negative bacteria; N17.0 Acute kidney failure with tubular necrosis; I50.23 Acute on chronic systolic (congestive) heart failure; J96.01 Acute respiratory failure with hypoxia; I13.0 Hypertensive heart and chronic kidney disease with heart failure and stage 1 through stage 4 chronic kidney disease, or unspecified chronic kidney disease; N18.4 Chronic kidney disease, stage 4 (severe); E87.1 Hypo-osmolality and hyponatremia; E87.2 Acidosis; I48.20 Chronic atrial fibrillation, unspecified; I45.2 Bifascicular block; R65.20 Severe sepsis without septic shock; Z87.891 Personal history of nicotine dependence; Z51.5 Encounter for palliative care; Z66 Do not resuscitate; E11.22 Type 2 diabetes mellitus with diabetic chronic kidney disease; D63.1 Anemia in chronic kidney disease; E03.9 Hypothyroidism, unspecified; E11.42 Type 2 diabetes mellitus with diabetic polyneuropathy; E11.51 Type 2 diabetes mellitus with diabetic peripheral angiopathy without gangrene; G47.33 Obstructive sleep apnea (adult) (pediatric); I49.5 Sick sinus syndrome; Z20.822 Contact with and (suspected) exposure to COVID-19; Z99.2 Dependence on renal dialysis; I27.20 Pulmonary hypertension, unspecified; D50.9 Iron deficiency anemia, unspecified; E78.5 Hyperlipidemia, unspecified; I08.3 Combined rheumatic disorders of mitral, aortic and tricuspid valves; G51.0 Bell's palsy; I83.93 Asymptomatic varicose veins of bilateral lower extremities; I25.10 Atherosclerotic heart disease of native coronary artery without angina pectoris; M17.0 Bilateral primary osteoarthritis of knee; H35.30 Unspecified macular degeneration; M47.9 Spondylosis, unspecified; T50.2X6A Underdosing of carbonic-anhydrase inhibitors, benzothiadiazides and other diuretics, initial encounter; Z90.49 Acquired absence of other specified parts of digestive tract; Z98.42 Cataract extraction status, left eye; Z98.41 Cataract extraction status, right eye; Z96.1 Presence of intraocular lens; Z79.890 Hormone replacement therapy; Z79.01 Long term (current) use of anticoagulants; Z79.899 Other long term (current) drug therapy; Z80.6 Family history of leukemia; Z85.51 Personal history of malignant neoplasm of bladder; Z95.810 Presence of automatic (implantable) cardiac defibrillator; Z91.128 Patient's intentional underdosing of medication regimen for other reason; Z88.5 Allergy status to narcotic agent; Z82.61 Family history of arthritis; Z98.890 Other specified postprocedural states; Z53.29 Procedure and treatment not carried out because of patient's decision for other reasons
CPT/HCPCS: 36415; 71045; 71046; 76770; 80048; 80053; 81001; 83605; 83735; 83880; 84100; 84484; 85025; 85027; 85610; 85730; 86704; 86706; 87040; 87340; 87635; 93005; 93306; 94660; 94760; 96374; 96375; 99291